=== PATIENT | female | born 1950 | race Two or more races ===

== ENCOUNTER 2019-10-27 20:51 | Inpatient (IN) | payer OTHER ==
[~2019-10-27] VITALS: Ht 157.5 cm; Wt 74.2 kg
[2019-10-27] MEDS ORDERED: KETOROLAC TROMETHAMINE INJ 30 MG/ML VIAL IV ONE (21:00)
[2019-10-27] MEDS ORDERED: IV NS 0.9% 1,000 ML BAG IV ONE (21:00)
[2019-10-27] MEDS ORDERED: ONDANSETRON HCL/PF 4 MG/2 ML VIAL IVP ONE (21:00)
[2019-10-27] MEDS ORDERED: ONDANSETRON HCL/PF 4 MG/2 ML VIAL ONE (21:01)
[2019-10-27] MEDS ORDERED: KETOROLAC TROMETHAMINE 15 MG/ML VIAL ONE (21:01)
--- NOTE | 2019-10-27 21:05 | NUR ---
PT AAOX4. EGYPTIAN SPEAKING. BIBRA 39 FROM HOME C/O LOW BP. PER RA THE BP WAS "AROUND 80S." ALSO PT WAS VOMITING SINCE THE MORNING. PT PALCED IN BED 9, IV LINE STARTED BY EMS AUDIT SENIOR ASSOCIATE 18G IV LAC, 500NS GIVEN OTW. PT PLACED ON MONITOR AND PULSE OX, VITALS STABLE 109/45. MD AT BEDSIDE FOR EVAL. PT DENIES PAIN, MINIMAL VOMITING, BG HIGH AT 577.
[2019-10-27 21:07] LABS: BASOPHILS # (AUTO) 0.1 /CMM (0.0-0.2); BASOPHILS % (AUTO) 0.5 % (0.0-2.0); EOSINOPHILS % (AUTO) 0.1 % (0.0-6.0); HEMATOCRIT 37 % (33-45); HEMOGLOBIN 11.1 g/dL (11.5-14.8); LYMPHOCYTES # (AUTO) 0.6 /CMM (0.8-4.8); LYMPHOCYTES % (AUTO) 4.6 % (20.0-44.0); MEAN CORPUSCULAR HGB CONC 30 g/dl (31.0-36.0); MEAN CORPUSCULAR VOLUME 90 fL (82-100); MONOCYTES # (AUTO) 0.4 /CMM (0.1-1.30); MONOCYTES % (AUTO) 3.2 % (2.0-12.0); NEUTROPHILS # (AUTO) 11.4 /CMM (1.8-8.9); NEUTROPHILS % (AUTO) 91.6 % (43.0-81.0); PLATELET COUNT (AUTO) 293 /CMM (150-450); RED BLOOD CELL COUNT(AUTO) 4.09 MIL/uL (4.0-5.2); WHITE BLOOD COUNT (AUTO) 12.5 K/uL (4.3-11.0)
[2019-10-27] MEDS ORDERED: INSULIN REGULAR, HUMAN 100 UNIT/ML 10 ML VIAL ONE ×2 (21:12→22:07)
--- NOTE | 2019-10-27 21:12 | NUR ---
ZOFRAN AND 1L NS GIVEN TO PT. PT CHRISTIANO PAIN, KNOWS SHE IS IN THE HOSPITAL AND IS ALERT. VSS. AWAITING MD FOR ORDERS REGARING BG.
--- NOTE | 2019-10-27 21:18 | NUR ---
INSULIN REGULAR 10 UNITS GIVEN IVP, WILL CHECK BG SOON.
[2019-10-27 21:22] LABS: ALBUMIN 1.9 g/dL (3.4-5.0); BILIRUBIN,DIRECT 0.1 mg/dL (0.0-0.2); BILIRUBIN,TOTAL 0.5 mg/dL (0.2-1.0); CALCIUM, SERUM 9.7 mg/dL (8.5-10.1); POTASSIUM 4.4 mmol/L (3.5-5.1); TOTAL PROTEIN, SERUM 7.5 g/dL (6.4-8.2)
[2019-10-27 21:27] LABS: MAGNESIUM 2.4 mg/dL (1.8-2.4); PHOSPHORUS 5.3 mg/dL (2.5-4.9)
[2019-10-27] MEDS ORDERED: INSULIN REGULAR, HUMAN 100 UNIT/ML 10 ML VIAL IV ONE (21:30)
--- NOTE | 2019-10-27 21:35 | NUR ---
BROUGHT TO CT
--- NOTE | 2019-10-27 21:45 | NUR ---
BROUGHT BACK FROM CT. PLACED ON MONITOR AND PULSE OX. VSS.
--- NOTE | 2019-10-27 21:53 | NUR ---
PT MOVED TO BED 8. SAT 88 ON 2L NC. PER MD REQUEST, INCREASED O2 TO 6L NC. NOW SAT 91%.
--- NOTE | 2019-10-27 21:56 | NUR ---
MRSA AND COVID SWAB SENT TO LAB
[2019-10-27] MEDS ORDERED: IV PREMIX 0.45% NS + KCL 1,000 ML IV ONE ×2 (21:59→22:12)
[2019-10-27] MEDS ORDERED: CEFTRIAXONE 1GM BAG (ER ONLY) 1 GM/50 ML PIGGYBACK IV ONE (22:00)
[2019-10-27] MEDS ORDERED: INSULIN REGULAR, HUMAN 100 UNIT in IV NS 0.9% 99 ML IV PRN ×2 (22:00)
[2019-10-27] MEDS ORDERED: AZITHROMYCIN 500 MG in IV D5W 250 ML IV ONE (22:00)
[2019-10-27] MEDS ORDERED: CEFTRIAXONE 1GM BAG (ER ONLY) 50 ML IV ONE (22:06)
[2019-10-27] MEDS ORDERED: AZITHROMYCIN 500 MG VIAL ONE (22:06)
--- NOTE | 2019-10-27 22:08 | NUR ---
PATSY MORENO AT BEDSIDE TO MICHAEL PALOMINO.
--- NOTE | 2019-10-27 22:10 | NUR ---
PATSY STRINGER AT BEDSIDE. BILATERAL DIABETIC ULCER NOTED.
--- NOTE | 2019-10-27 22:11 | NUR ---
MRSA AND COVID SWAB SENT TO LAB
--- NOTE | 2019-10-27 22:11 | NUR ---
Carrie feldman in [facility] - 10/27/19 at 2240 by ANA LAURA MRSA AND COVID SWAB SENT TO LAB
[2019-10-27] MEDS ORDERED: IV NS 0.9% 1,000 ML IV PRN (22:18)
[2019-10-27 22:26] LABS: ABG BASE EXCESS -23.9 mmol/L; ABG OXYGEN SATURATION 90.9 % (92.0-98.5); ABG PCO2 17.9 mmHg (35.0-45.0); ABG PH 7.049 (7.350-7.450); ABG PO2 72.1 mmHg (75.0-100.0); AaDO2 221.2 mmHg; MetHb 0.5 % (0.0-1.5); O2Hb 90.4 % (94.0-97.0); SITE, ABG Right Radial; VENT MODE, BG 6 LNC
[2019-10-27] MEDS ORDERED: ONDANSETRON HCL/PF 4 MG/2 ML VIAL IVP PRN (22:30)
[2019-10-27] MEDS ORDERED: Z GUARD REMEDY 2 OZ OINT TP PRN (22:30)
[2019-10-27] MEDS ORDERED: MAGNESIUM HYDROXIDE 30 ML UDC PO PRN (22:30)
[2019-10-27] MEDS ORDERED: MAG HYDROX/AL HYDROX/SIMETH 30 ML UDC PO PRN (22:30)
--- NOTE | 2019-10-27 22:40 | NUR ---
PADDING MACHINE OPERATOR AT BEDSIDE
--- NOTE | 2019-10-27 22:42 | NUR ---
RT AT BEDSIDE. PLACED ON SIMPLE MASK MAX FLOW, NOW SAT 99.
[2019-10-27 22:58] LABS: MAGNESIUM 2.3 mg/dL (1.8-2.4); PHOSPHORUS 4.1 mg/dL (2.5-4.9)
[2019-10-27] MEDS ORDERED: VANCOMYCIN 1 GM in IV D5W 250ml IV ONE (23:00)
[2019-10-27 23:01] LABS: C-REACTIVE PROTEIN 47.1 mg/dL (0.0-0.9)
--- NOTE | 2019-10-27 23:07 | NUR ---
INSULIN DRIP INCREASED TO 7/HR DUE TO BG 499.
--- NOTE | 2019-10-27 23:27 | NUR ---
REPORT GIVEN TO RADHA DONALDSON FOR SABINO
[2019-10-27] MEDS ORDERED: SODIUM BICARBONATE SYR 50 MEQ/50 ML DISP.SYRIN IV ONE (23:30)
[2019-10-28] VITALS (21 sets, daily range): BP systolic 102–125; BP diastolic 49–73
--- NOTE | 2019-10-28 00:10 | NUR ---
PT TRASNFERED PER ACLS PROTOCOL
[2019-10-28] MEDS: INSULIN REGULAR, HUMAN 100 UNIT in IV NS 0.9% 99 ML IV PRN ×8 (01:00→22:34)
[2019-10-28] MEDS ORDERED: VANCOMYCIN 1 GM VIAL ONE (01:00)
[2019-10-28 01:16] LABS: APPEARANCE,URINE SL CLOUDY (CLEAR); BILIRUBIN,URINE SMALL (NEGATIVE); BLOOD, URINE SMALL Ery/uL (NEGATIVE); COLOR,URINE YELLOW (YELLOW); KETONES,URINE >=80 (NEGATIVE); LEUKOCYTE ESTERASE ,URINE NEGATIVE (NEGATIVE); NITRITE, URINE NEGATIVE (NEGATIVE); PH,URINE 5.5 (5.0-8.0); PROTEIN,URINE TRACE mg/dl (NEGATIVE); UGLUCOSE >=1000 mg/dL (NEGATIVE); UROBILINOGEN,URINE 0.2 EU/dL (0.2)
[2019-10-28 01:26] LABS: CALCIUM, SERUM 9.2 mg/dL (8.5-10.1); CREATININE 1.8 mg/dL (0.6-1.3); PHOSPHORUS 3.5 mg/dL (2.5-4.9)
[2019-10-28] MEDS: BLOOD SUGAR DIAGNOSTIC 1 EACH STRIP IN SCH ×20 (01:27→23:34)
[2019-10-28 01:35] LABS: BACTERIA,URINE Moderate /HPF (None Seen); RBC,URINE 0-2 /HPF (0-2); SQUAMOUS EPITHELIAL CELL,UR Few /HPF (None Seen); URINE AMORPHOUS URATE Moderate /HPF (None Seen); WBC,URINE 0-2 /HPF (0-3)
[2019-10-28] MEDS: IV NS 0.9% 1,000 ML IV PRN ×2 (02:32→10:56)
[2019-10-28 03:58] LABS: SITE, ABG Right Radial; VENT MODE, BG NRB 100%
[2019-10-28 04:56] LABS: BASOPHILS % (AUTO) 0.4 % (0.0-2.0); HEMATOCRIT 32 % (33-45); HEMOGLOBIN 10.6 g/dL (11.5-14.8); LYMPHOCYTES # (AUTO) 0.5 /CMM (0.8-4.8); LYMPHOCYTES % (AUTO) 6.3 % (20.0-44.0); MEAN CORPUSCULAR HGB CONC 33 g/dl (31.0-36.0); MEAN CORPUSCULAR VOLUME 85 fL (82-100); MONOCYTES # (AUTO) 0.1 /CMM (0.1-1.30); MONOCYTES % (AUTO) 1.8 % (2.0-12.0); NEUTROPHILS # (AUTO) 7.3 /CMM (1.8-8.9); NEUTROPHILS % (AUTO) 91.5 % (43.0-81.0); PLATELET COUNT (AUTO) 244 /CMM (150-450); RED BLOOD CELL COUNT(AUTO) 3.76 MIL/uL (4.0-5.2)
[2019-10-28 05:03] LABS: ALBUMIN 1.8 g/dL (3.4-5.0); BILIRUBIN,DIRECT 0.1 mg/dL (0.0-0.2); BILIRUBIN,TOTAL 0.4 mg/dL (0.2-1.0); CALCIUM, SERUM 8.8 mg/dL (8.5-10.1); CREATININE 1.6 mg/dL (0.6-1.3); MAGNESIUM 1.8 mg/dL (1.8-2.4); PHOSPHORUS 2.1 mg/dL (2.5-4.9); POTASSIUM 3.7 mmol/L (3.5-5.1); TOTAL PROTEIN, SERUM 7.2 g/dL (6.4-8.2)
[2019-10-28 05:19] LABS: THYROID STIMULATING HORMONE 2.03 uIU/mL (0.358-3.74)
--- NOTE | 2019-10-28 07:30 | NUR ---
rn notes received patient form restaurant shift supervisor nurse, patient lethargic, fight back when pain is inflicted. on non rebreather mask, tolerating well. breathing unlabored. sating 95%. sinus rhythm/ sinus tachy on the monitor. no indication of pain noted. iv access on the right wrist g 20 and left ac g 18, both in place and flushing well. with ongoing insulin drip infusing with 2 units at this time, will adjust as able and accordingly. safety measures observed and maintained. call light placed within shift. will isolate patient accordingly
--- NOTE | 2019-10-28 07:42 | NUR ---
FIELD EVIDENCE TECHNICIAN/MED RECON UNABLE TO UPDATE HOME MEDICATION INFORMATION AT THIS TIME. KHOA (DAUGHTER) [phone], WILL CALL BACK LATER TO UPDATE WITH INFORMATION.
--- NOTE | 2019-10-28 07:44 | NUR ---
WOUND CARE CONSULT: REVIEWED ADMISSION DOCUMENTATION INCLUDING PHOTOS AND SPOKE WITH RN. PER ADMISSION DOCUMENTATION AND RN REPORT, PT NOTED TO HAVE VERY RED IRRITATED PERINEUM, LEFT LOWER LEG WOUND AND RT FOOT WOUND, PRESENT ON ADMISSION. RECOMMEND DPM CONSULT. DR RESTREPO NOTIFIED OF CONSULT REQUEST. RECOMMENDATIONS MADE FOR SKIN PROTECTION AND PERINEAL CARE. DISCUSSED WITH NURSING STAFF. WILL SEE PRBrown. IN AGREEMENT WITH PLAN OF CARE.
[2019-10-28] MEDS ORDERED: FEE PK DOSING 1 MIN EA MC ONE (08:25)
[2019-10-28 08:59] LABS: CALCIUM, SERUM 8.9 mg/dL (8.5-10.1); CREATININE 1.6 mg/dL (0.6-1.3); POTASSIUM 3.5 mmol/L (3.5-5.1)
[2019-10-28 10:15] LABS: ABG BASE EXCESS -8.3 mmol/L; ABG OXYGEN SATURATION 95.1 % (92.0-98.5); ABG PCO2 28.3 mmHg (35.0-45.0); ABG PH 7.365 (7.350-7.450); ABG PO2 77.9 mmHg (75.0-100.0); AaDO2 606.8 mmHg; COHb 0.1 % (0.5-1.5); MetHb 0.6 % (0.0-1.5); O2Hb 94.4 % (94.0-97.0)
--- NOTE | 2019-10-28 12:00 | NUR ---
rn notes dr. foley at the unit. made aware of the current situation. informed on the current blood sugar level, per the md will call me to give orders depending on the results of the labs when reviewed. will wait for orders
--- NOTE | 2019-10-28 14:00 | NUR ---
rn notes followed up orders with dr. foley. obtained orders to change fluid to d5ns at 125cc/hr from ns of the same rate. give 20meq potassium for potassium level at 3.5. orders noted and carried out
[2019-10-28] MEDS ORDERED: POTASSIUM CHLORIDE 20 MEQ TAB.PRT.SR PO ONE (15:00)
[2019-10-28] MEDS ORDERED: HYDROXYCHLOROQUINE 200 MG/8 ML SUSPENSION NG SCH ×2 (16:30→21:00)
[2019-10-28] MEDS: CLOTRIMAZOLE/BETAMETASONE DIPROPIONATE 15 GM TUBE TP SCH ×2 (16:44→17:00)
[2019-10-28] MEDS: IV D5/0.45 NACL 1,000 ML IV PRN (16:46)
[2019-10-28] MEDS: HYDROXYCHLOROQUINE 200 MG/8 ML SUSPENSION NG SCH (17:00)
[2019-10-28] MEDS ORDERED: HYDROXYCHLOROQUINE 200 MG TABLET NG SCH (17:00)
[2019-10-28] MEDS ORDERED: INSU100V27 SQ (17:09)
[2019-10-28] MEDS ORDERED: INSU100I26 SQ (17:09)
[2019-10-28] MEDS: POTASSIUM CL. PREMIX PERIPHER. 50 ML IV SCH ×2 (18:41→20:35)
[2019-10-28] MEDS: VANCOMYCIN 0.75 GM in IV D5W 250 ML IV SCH (19:09)
--- NOTE | 2019-10-28 19:30 | NUR ---
rn notes endorsed patient for continuity of care. not on any form of distress. breathing unlabored. tolerating non rebreather well. insulin infusing at 1.6 units at this time. all nursing needs attended and met. safety measures in place. call light within reach. patient kept on isolation Addendum: 10/29/19 at 1827 by FREDDIE MEADE RN tried inserting n/ogt twice but unsuccessful. endorsed to ellenrn and ed,rn (charge nurse)
[2019-10-28] MEDS: CEFTRIAXONE 1 G in IV D5W 50 ML IV SCH (21:54)
[2019-10-29] VITALS (40 sets, daily range): BP systolic 92–142; BP diastolic 33–90
[2019-10-29] MEDS: BLOOD SUGAR DIAGNOSTIC 1 EACH STRIP IN SCH ×9 (00:26→23:21)
[2019-10-29] MEDS: IV D5/0.45 NACL 1,000 ML IV PRN ×3 (00:59→15:40)
[2019-10-29 06:02] LABS: BASOPHILS % (AUTO) 0.5 % (0.0-2.0); HEMATOCRIT 30 % (33-45); HEMOGLOBIN 10.3 g/dL (11.5-14.8); LYMPHOCYTES # (AUTO) 0.4 /CMM (0.8-4.8); LYMPHOCYTES % (AUTO) 5.7 % (20.0-44.0); MEAN CORPUSCULAR HGB CONC 34 g/dl (31.0-36.0); MEAN CORPUSCULAR VOLUME 86 fL (82-100); MONOCYTES # (AUTO) 0.1 /CMM (0.1-1.30); MONOCYTES % (AUTO) 1.7 % (2.0-12.0); NEUTROPHILS # (AUTO) 6.9 /CMM (1.8-8.9); NEUTROPHILS % (AUTO) 92.1 % (43.0-81.0); PLATELET COUNT (AUTO) 225 /CMM (150-450); RED BLOOD CELL COUNT(AUTO) 3.54 MIL/uL (4.0-5.2); WHITE BLOOD COUNT (AUTO) 7.5 K/uL (4.3-11.0)
[2019-10-29 06:10] LABS: ALANINE AMINOTRANSFERASE 15 U/L (12-78); ALBUMIN 1.6 g/dL (3.4-5.0); ALKALINE PHOSPHATASE 123 U/L (46-116); ASPARTATE AMINOTRANSFERASE 31 U/L (15-37); BILIRUBIN,TOTAL 0.2 mg/dL (0.2-1.0); CALCIUM, SERUM 8.9 mg/dL (8.5-10.1); CARBON DIOXIDE 22 mmol/L (21-32); CHLORIDE 108 mmol/L (98-107); CREATININE 1.1 mg/dL (0.6-1.3); GLUCOSE 195 mg/dL (74-106); LIPASE 998 U/L (73-393); MAGNESIUM 1.9 mg/dL (1.8-2.4); POTASSIUM 3.3 mmol/L (3.5-5.1); SODIUM SERUM 141 mmol/L (136-145); TOTAL PROTEIN, SERUM 6.7 g/dL (6.4-8.2); UREA NITROGEN, BLOOD 21 mg/dL (7-18)
--- NOTE | 2019-10-29 07:30 | NUR ---
rn notes received patient from restaurant shift supervisor nurse. patient asleep but awaken by verbal stimuli. able to open eyes spontaneously. no shortness of breath noted. sating fine. tolerating non rebreather mask. sinus rhythm on the monitor with hr on the 98bpm. no indication of pain noted at this time. patient with low grade fever at 100.8- cooling measures initiated. will continue to monitor. safety measures observed and maintained. SRx2 raised. call light placed within reach. will continue to monitor patient accordingly
[2019-10-29] MEDS ORDERED: POTASSIUM PHOSPHATE MM 15 MMOL in IV NS 0.9% 250 ML IV SCH (09:00)
[2019-10-29 09:36] LABS: ABG BASE EXCESS -1.9 mmol/L; ABG OXYGEN SATURATION 90.3 % (92.0-98.5); ABG PCO2 34.5 mmHg (35.0-45.0); ABG PH 7.423 (7.350-7.450); ABG PO2 55.1 mmHg (75.0-100.0); AaDO2 479.1 mmHg; COHb 0.1 % (0.5-1.5); MetHb 0.6 % (0.0-1.5); O2Hb 89.7 % (94.0-97.0); SITE, ABG Right Radial; VENT MODE, BG NON-REBREATH MSK
[2019-10-29] MEDS ORDERED: DEXTROSE 50%-WATER 50 ML DISP.SYRIN IV PRN (11:30)
[2019-10-29] MEDS ORDERED: INSULIN REGULAR, HUMAN 100 UNIT/ML 3 ML VIAL SQ PRN (11:30)
[2019-10-29] MEDS: POTASSIUM PHOSPHATE MM 7.5 MMOL in IV NS 0.9% 100 ML IV SCH ×2 (11:31→15:36)
[2019-10-29] MEDS: HYDROXYCHLOROQUINE 200 MG/8 ML SUSPENSION NG SCH ×2 (11:57→17:05)
[2019-10-29] MEDS: CLOTRIMAZOLE/BETAMETASONE DIPROPIONATE 15 GM TUBE TP SCH ×2 (11:58→17:34)
[2019-10-29] MEDS: HYDROGEL DRESSING 90 GM TUBE TP SCH (11:58)
[2019-10-29] MEDS ORDERED: BLOOD SUGAR DIAGNOSTIC 1 EACH STRIP IN SCH (13:00)
[2019-10-29] MEDS: VANCOMYCIN 0.75 GM in IV D5W 250 ML IV SCH (13:29)
[2019-10-29 13:48] LABS: ABG BASE EXCESS -4.5 mmol/L; ABG OXYGEN SATURATION 84.4 % (92.0-98.5); ABG PCO2 31.8 mmHg (35.0-45.0); ABG PH 7.402 (7.350-7.450); ABG PO2 46.3 mmHg (75.0-100.0); AaDO2 634.9 mmHg; COHb 0.6 % (0.5-1.5); MetHb 0.3 % (0.0-1.5); O2Hb 83.6 % (94.0-97.0); SITE, ABG Right Radial; VENT MODE, BG NRB MSK+ 6LPM NC
--- NOTE | 2019-10-29 14:00 | NUR ---
rn notes spoke to daughter paula. updated on the condition/status of the patient relayed to the latter. specifically mentioned about patient getting intubated due to worsening abg results. daughter verbalized understanding
[2019-10-29] MEDS ORDERED: VANCOMYCIN 0.75 GM in IV D5W 250 ML IV SCH (14:30)
--- NOTE | 2019-10-29 14:45 | NUR ---
RN NOTES PATIENT ORALLY INTUBATED BY DR. HAYES ACCOMPANIED BY ME AND 2 RT. PATIENT ABLE TO TOLERATE THE PROCEDURE WELL.
--- NOTE | 2019-10-29 14:45 | NUR ---
RT NOTE: LATE ENTRY- PATIENT ORALLY INTUBATED WITH 7.5 ETT SECURED AT 22CM UPPER LIP LINE BY ANESTHESIOLOGIST AND PLACED ON PB 840 VENT. SETTINGS PER 'S ORDERS. SUCTIONED AND LAVAGED SMALL AMOUNT OF THIN BLOOD TINGED SECRETIONS. AMBU BAG AT [facility].
[2019-10-29] MEDS: PROPOFOL 100 ML IV PRN ×2 (15:36→19:26)
[2019-10-29] MEDS: AZITHROMYCIN 500 MG in IV D5W 250 ML IV SCH (15:50)
[2019-10-29] MEDS ORDERED: PROPOFOL 200 MG/20 ML VIAL IV ONE (16:46)
[2019-10-29] MEDS ORDERED: SUCCINYLCHOLINE CHLORIDE 20 MG/ML VIAL IV ONE (16:46)
[2019-10-29] MEDS: INSULIN GLARGINE, 100 UNIT/ML CARTRIDGE SQ SCH (17:34)
[2019-10-29] MEDS: INSULIN REGULAR, HUMAN 100 UNIT/ML 3 ML VIAL SQ PRN ×2 (17:37→23:22)
[2019-10-29 18:05] LABS: ABG BASE EXCESS -3.4 mmol/L; ABG OXYGEN SATURATION 98.6 % (92.0-98.5); ABG PCO2 32.7 mmHg (35.0-45.0); ABG PH 7.413 (7.350-7.450); ABG PO2 157.8 mmHg (75.0-100.0); AaDO2 522.5 mmHg; COHb 0.2 % (0.5-1.5); MetHb 0.3 % (0.0-1.5); O2Hb 98.1 % (94.0-97.0); PEEP,BG 5 cm H2O; SITE, ABG Right Radial; VT, ABG 450 mL
--- NOTE | 2019-10-29 19:43 | NUR ---
RT NOTES PT RECEIVED ORALLY INTUBATED ON [facility] VENT ON CHARTED SETTINGS. NO SOB NOTED AT THIS TIME. AIRWAY PATENT AND SECURED. ICU STAFF NURSE DONE. PT SUCTIONED. ALARMS SET AND AUDIBLE. VENT CONT TO RED OUTLET. AMBUBAG AT [facility]. WILL CONT TO MONITOR. Addendum: 10/29/19 at 2042 by CLARK HOLGUIN RT Amended: Links added.
[2019-10-29] MEDS ORDERED: HYDROXYCHLOROQUINE 200 MG TABLET NG SCH (21:00)
[2019-10-29] MEDS: CEFTRIAXONE 1 G in IV D5W 50 ML IV SCH (22:30)
--- NOTE | 2019-10-29 23:30 | NUR ---
RN NOTES PAGED Rodrigo KAMARA NP PER PROTOCOL REGARDING BLOOD SUGAR AT 428. INFORMED LATER THAT INSULIN HAS BEEN GIVEN PER SLIDING SCALE. NO NEW ORDER AT THIS TIME
[2019-10-30] VITALS (110 sets, daily range): BP systolic 66–148; BP diastolic 35–108
--- NOTE | 2019-10-30 | NUR ---
RN NOTES ENDORSED PATIENT FOR CONTINUITY OF CARE. NOT ON ANY FORM OF DISTRESS. TOLERATING CURRENT VENT SETTINGS. NO SHORTNESS OF BREATH. NO INDICATION OF PAIN NOTED. PATIENT WITH ONGOING DIPRIVAN AT 25MMCG ANND D51/2NS AT 125CC/HR. HANDS OFF
[2019-10-30] MEDS: IV D5/0.45 NACL 1,000 ML IV PRN ×3 (00:02→21:48)
[2019-10-30] MEDS ORDERED: VANCOMYCIN 0.75 GM in IV D5W 250 ML IV PRN (01:00)
[2019-10-30] MEDS ORDERED: NOREPINEPHRINE 4 MG/4 ML AMPUL IV ONE ×3 (01:58→02:03)
[2019-10-30] MEDS: NOREPINEPHRINE 32 MG in IV NS 0.9% 218 ML IV PRN (02:15)
[2019-10-30] MEDS: PROPOFOL 100 ML IV PRN ×3 (03:46→21:11)
[2019-10-30 04:27] LABS: BASOPHILS % (AUTO) 0.1 % (0.0-2.0); HEMATOCRIT 27 % (33-45); LYMPHOCYTES # (AUTO) 0.4 /CMM (0.8-4.8); LYMPHOCYTES % (AUTO) 8.8 % (20.0-44.0); MEAN CORPUSCULAR HGB CONC 33 g/dl (31.0-36.0); MEAN CORPUSCULAR VOLUME 83 fL (82-100); MONOCYTES # (AUTO) 0.1 /CMM (0.1-1.30); NEUTROPHILS # (AUTO) 3.7 /CMM (1.8-8.9); NEUTROPHILS % (AUTO) 88.1 % (43.0-81.0); PLATELET COUNT (AUTO) 161 /CMM (150-450); RED BLOOD CELL COUNT(AUTO) 3.24 MIL/uL (4.0-5.2); WHITE BLOOD COUNT (AUTO) 4.2 K/uL (4.3-11.0)
[2019-10-30 04:43] LABS: BILIRUBIN,TOTAL 0.2 mg/dL (0.2-1.0); CALCIUM, SERUM 8.5 mg/dL (8.5-10.1); CREATININE 0.9 mg/dL (0.6-1.3); MAGNESIUM 1.8 mg/dL (1.8-2.4); PHOSPHORUS 1.2 mg/dL (2.5-4.9); POTASSIUM 2.9 mmol/L (3.5-5.1)
[2019-10-30 04:46] LABS: ALBUMIN 1.2 g/dL (3.4-5.0)
[2019-10-30] MEDS: BLOOD SUGAR DIAGNOSTIC 1 EACH STRIP IN SCH ×3 (05:05→17:05)
[2019-10-30] MEDS: INSULIN REGULAR, HUMAN 100 UNIT/ML 3 ML VIAL SQ PRN ×3 (05:39→18:41)
[2019-10-30] MEDS: HYDROXYCHLOROQUINE 200 MG/8 ML SUSPENSION NG SCH ×2 (05:49→17:10)
--- NOTE | 2019-10-30 06:36 | NUR ---
0200 Patient blood pressure drop,to increase sbp to 70's got order for levophed drip titrated to keep sbp > 90. Addendum: 10/30/19 at 0646 by ROBYN SIERRA LVN 0600 Patient in bed. No s/s of distress or discomfort noted. Vent tube intact in place and secured. All iv lines in place with no iv infiltration. Patient is positive for bell virus. Will endored to am nurse.
[2019-10-30] MEDS: CLOTRIMAZOLE/BETAMETASONE DIPROPIONATE 15 GM TUBE TP SCH ×2 (09:00→17:00)
[2019-10-30] MEDS: HYDROGEL DRESSING 90 GM TUBE TP SCH (09:00)
[2019-10-30] MEDS: INSULIN GLARGINE, 100 UNIT/ML CARTRIDGE SQ SCH ×2 (09:11→18:40)
[2019-10-30 09:56] LABS: ABG BASE EXCESS -1.8 mmol/L; ABG OXYGEN SATURATION 96.7 % (92.0-98.5); ABG PCO2 29.1 mmHg (35.0-45.0); ABG PH 7.477 (7.350-7.450); ABG PO2 87.6 mmHg (75.0-100.0); AaDO2 344.2 mmHg; COHb 0.3 % (0.5-1.5); MetHb 0.5 % (0.0-1.5); O2Hb 95.9 % (94.0-97.0); PEEP,BG 5 cm H2O; SITE, ABG Right Brachial; VT, ABG 450 mL
[2019-10-30] MEDS: VANCOMYCIN 0.75 GM in IV D5W 250 ML IV SCH ×2 (10:00→21:49)
[2019-10-30] MEDS: HYDROCORTISONE SOD SUCCINATE 100 MG/2 ML VIAL IV SCH ×3 (11:26→17:03)
[2019-10-30] MEDS: POTASSIUM CL. PREMIX PERIPHER. 50 ML IV SCH ×6 (11:27→16:46)
[2019-10-30 13:38] LABS: C-REACTIVE PROTEIN 34.2 mg/dL (0.0-0.9)
[2019-10-30] MEDS ORDERED: NS 0.9% IV SCH (14:30)
[2019-10-30] MEDS ORDERED: POTASSIUM PHOSPHATE MM IV SCH (14:30)
[2019-10-30] MEDS: POTASSIUM PHOSPHATE MM 7.5 MMOL in IV NS 0.9% 100 ML IV SCH ×3 (15:00→23:56)
[2019-10-30] MEDS: AZITHROMYCIN 500 MG in IV D5W 250 ML IV SCH (15:19)
[2019-10-30] MEDS ORDERED: methylPREDNISolone SOD SUCC 40 MG/ML VIAL IV ONE (17:00)
[2019-10-30] MEDS ORDERED: diphenhydrAMINE HCL 50 MG/ML VIAL IV ONE (17:00)
[2019-10-30] MEDS ORDERED: ACETAMINOPHEN 650 MG/20.3 ML UDC NG ONE (17:00)
--- NOTE | 2019-10-30 17:51 | NUR ---
RT NOTE: PATIENT RECEIVED ORALLY INTUBATED WITH 7.5 ETT SECURED AT 22 CM MID LIP LINE ON PB 840 VENT. VENT CHANGES MADE PER MD ORDER. ALARMS SET AND AUDIBLE. VENT PLUGGED INTO RED OUTLET. AMBU BAG AT [facility].
[2019-10-30] MEDS: PHENYLEPHRINE 100 MG in IV NS 0.9% 240 ML IV PRN (17:55)
[2019-10-30] MEDS ORDERED: TOCILIZUMAB 400 MG in IV NS 0.9% 80 ML IV ONE (18:00)
[2019-10-30] MEDS: CEFTRIAXONE 1 G in IV D5W 50 ML IV SCH (21:49)
[2019-10-31] VITALS (98 sets, daily range): BP systolic 71–143; BP diastolic 33–95
[2019-10-31] MEDS: ACETAMINOPHEN 650 MG/SUPP.RECT RC PRN ×3 (01:21→23:36)
[2019-10-31] MEDS: INSULIN REGULAR, HUMAN 100 UNIT/ML 3 ML VIAL SQ PRN ×4 (01:25→17:11)
[2019-10-31] MEDS: POTASSIUM PHOSPHATE MM 7.5 MMOL in IV NS 0.9% 100 ML IV SCH (01:48)
[2019-10-31] MEDS: HYDROXYCHLOROQUINE 200 MG/8 ML SUSPENSION NG SCH ×2 (04:45→17:07)
[2019-10-31] MEDS: PROPOFOL 100 ML IV PRN ×3 (05:02→17:59)
[2019-10-31 06:11] LABS: CREATINE KINASE, TOTAL 157 U/L (26-192)
[2019-10-31 06:17] LABS: B-TYPE NATRIURETIC PEPTIDE 31285 PG/ML (0-125)
[2019-10-31 06:18] LABS: CALCIUM, SERUM 7.9 mg/dL (8.5-10.1); CREATININE 1.3 mg/dL (0.6-1.3); POTASSIUM 3.9 mmol/L (3.5-5.1)
[2019-10-31 06:19] LABS: BASOPHILS % (AUTO) 0.5 % (0.0-2.0); EOSINOPHILS % (AUTO) 0.9 % (0.0-6.0); HEMATOCRIT 32 % (33-45); HEMOGLOBIN 10.4 g/dL (11.5-14.8); LYMPHOCYTES # (AUTO) 0.6 /CMM (0.8-4.8); LYMPHOCYTES % (AUTO) 14.4 % (20.0-44.0); MEAN CORPUSCULAR HGB CONC 33 g/dl (31.0-36.0); MEAN CORPUSCULAR VOLUME 83 fL (82-100); MONOCYTES # (AUTO) 0.3 /CMM (0.1-1.30); MONOCYTES % (AUTO) 6.7 % (2.0-12.0); NEUTROPHILS # (AUTO) 3.4 /CMM (1.8-8.9); NEUTROPHILS % (AUTO) 77.5 % (43.0-81.0); PLATELET COUNT (AUTO) 163 /CMM (150-450); RED BLOOD CELL COUNT(AUTO) 3.79 MIL/uL (4.0-5.2); WHITE BLOOD COUNT (AUTO) 4.4 K/uL (4.3-11.0)
[2019-10-31] MEDS: BLOOD SUGAR DIAGNOSTIC 1 EACH STRIP IN SCH ×4 (06:40→17:16)
[2019-10-31 07:18] LABS: BILIRUBIN,DIRECT 0.2 mg/dL (0.0-0.2)
--- NOTE | 2019-10-31 07:30 | NUR ---
RN NOTES RECEIVED PATIENT. SEDATED WITH DIPRIVAN 25MCG. ON VENT, TOLERATING CURRENT VENT SETTINGS FOLLOWS: AC 18, TV 400, FI02 60%, PEEP ZHANNA 5. SATS APPEAR AT 100% ON THE MONITOR AT THIS TIME. SINUS RHYTHM ON THE MONITOR WITH HR ON THE 80S. PATIENT WITH TEMP AT 100.7. NO INDICATION OF PAIN NOTED. OGT IN PLACE. WITH ONGOING DANIELLA AT 1MCG/KG/MIN. HOB ELEVATED. CALL LIGHT WITHIN REACH. WILL CONTINUE TO MONITOR PATIENT ACCORDINGLY Addendum: 10/31/19 at 1039 by FREDDIE MEADE RN INITIATED SEDATION VACATION AT THIS TIME
--- NOTE | 2019-10-31 07:30 | NUR ---
FNZ EXCHANGE AWARE OF DR/ NOT RETURNING CALL SINCE MESSAGE LEFT @ [phone]. INFORMED THAT DR WILL CALL BACK
--- NOTE | 2019-10-31 08:00 | NUR ---
RN NOTES SPOKE TO DR. VALENCIA REGARDING THE PATIENT'S TROPONIN LEVE. NO NEW ORDER AT THIS TIME
[2019-10-31 08:37] LABS: ABG BASE EXCESS -9.6 mmol/L; ABG OXYGEN SATURATION 87.1 % (92.0-98.5); ABG PCO2 21.6 mmHg (35.0-45.0); ABG PH 7.409 (7.350-7.450); ABG PO2 53.1 mmHg (75.0-100.0); AaDO2 279.1 mmHg; COHb 0.3 % (0.5-1.5); MetHb 0.2 % (0.0-1.5); O2Hb 86.7 % (94.0-97.0); SITE, ABG Left Radial; VENT MODE, BG AC 18 400 50% +5
[2019-10-31] MEDS: HYDROCORTISONE SOD SUCCINATE 100 MG/2 ML VIAL IV SCH ×2 (08:52→12:28)
[2019-10-31] MEDS: INSULIN GLARGINE, 100 UNIT/ML CARTRIDGE SQ SCH ×2 (08:54→17:09)
[2019-10-31] MEDS: HYDROGEL DRESSING 90 GM TUBE TP SCH (08:55)
[2019-10-31] MEDS: CLOTRIMAZOLE/BETAMETASONE DIPROPIONATE 15 GM TUBE TP SCH ×2 (08:55→17:07)
--- NOTE | 2019-10-31 09:00 | NUR ---
RN NOTES INFORMED DR. VALENCIA ABOUT SWELLING OF THE RIGHT UPPER ARM. MIDLINE FLUSHES WELL BUT NO ADEQUATE BACK FLOW. Addendum: 10/31/19 at 1852 by FREDDIE MEADE RN OBTAINED ORDER FOR VENOUS DUPLEX SCAN. ORDER READ BACK, NOTED AND CARRIED OUT
--- NOTE | 2019-10-31 09:00 | NUR ---
RN NOTES ALL DUE MEDICATION ADMINISTERED. IV SITES ALL IN PLACE AND INTACT, FLUSHING WELL. PATIENT ASSESS (PLEASE SEE FLOWSHEET). ORALLY INTUBATED AY 22CM ON THE LIP. PATIENT ABLE TO OPEN EYES SPONTANEOUSLY, ABLE TO MOVE PURPOSELY. BUT WAS NOT ABLE TO FOLLOW COMMAND PERFECTLY PROBABLY BECAUSE OF LANGUAGE BARRIER. RIGHT ARM SWOLLEN-WILL INFORM MD ON ROUNDS.
[2019-10-31 10:29] LABS: D-DIMER 26.27 mg/L(FEU (0.17-0.50)
[2019-10-31] MEDS: VANCOMYCIN 0.75 GM in IV D5W 250 ML IV SCH ×2 (12:28→22:23)
[2019-10-31] MEDS: PHENYLEPHRINE 100 MG in IV NS 0.9% 240 ML IV PRN ×2 (12:37→18:15)
[2019-10-31] MEDS: ASPIRIN 81 MG TAB.CHEW NG SCH (15:07)
[2019-10-31] MEDS: AZITHROMYCIN 500 MG in IV D5W 250 ML IV SCH (15:07)
--- NOTE | 2019-10-31 19:00 | NUR ---
RN NOTES ENDORSED FOR CONTINUITY ZHANNA CARE.PATIENT RR ON THE 30'S. CURRENT VENT SETTING WITH FI02 ON THE 100%. NO INDICATION OF PAIN. PATIENT IS SEDATED WITH DIPRIVAN AT 25MCG. LEVOPHED AT 1MCG AND D5NS AT 70CC/HR. HOB ELEVATED. SAFETY MEASURES IN PLACE. CALL LIGHT WITHIN REACH
[2019-10-31 20:00] LABS: APPEARANCE,URINE CLOUDY (CLEAR); BILIRUBIN,URINE NEGATIVE (NEGATIVE); BLOOD, URINE NEGATIVE Ery/uL (NEGATIVE); COLOR,URINE YELLOW (YELLOW); KETONES,URINE NEGATIVE (NEGATIVE); LEUKOCYTE ESTERASE ,URINE NEGATIVE (NEGATIVE); NITRITE, URINE NEGATIVE (NEGATIVE); PROTEIN,URINE 100 mg/dl (NEGATIVE); UGLUCOSE >=1000 mg/dL (NEGATIVE)
[2019-10-31 20:18] LABS: BACTERIA,URINE 3+ /HPF (None Seen); SQUAMOUS EPITHELIAL CELL,UR 0-2 /HPF (None Seen); YEAST,URINE Many /HPF (None Seen)
[2019-10-31 20:19] LABS: COARSE GRANULAR CASTS,URINE Few /LPF (None Seen)
[2019-10-31] MEDS: CEFTRIAXONE 1 G in IV D5W 50 ML IV SCH (22:52)
[2019-11-01] VITALS (86 sets, daily range): BP systolic 83–120; BP diastolic 17–73
[2019-11-01] MEDS: BLOOD SUGAR DIAGNOSTIC 1 EACH STRIP IN SCH ×4 (00:15→17:41)
--- NOTE | 2019-11-01 00:23 | NUR ---
ICU/RN CALLED AFTER HOUR PHARMACY ABOUT PATIENTS TROUGH LEVEL BEING AT 28. WAS INSTRUCTED TO HOLD VANCO DOSE SCHEDULED AT 2200 AND TO LET THE AM PHARMACY KNOW IF THEY NEED TO REDOSE THE VANCO.
[2019-11-01] MEDS: IV D5/0.45 NACL 1,000 ML IV PRN (02:00)
[2019-11-01] MEDS: PROPOFOL 100 ML IV PRN ×3 (04:02→22:58)
[2019-11-01 04:31] LABS: BASOPHILS % (AUTO) 0.3 % (0.0-2.0); HEMATOCRIT 31 % (33-45); HEMOGLOBIN 10.2 g/dL (11.5-14.8); LYMPHOCYTES % (AUTO) 12.9 % (20.0-44.0); MEAN CORPUSCULAR HGB CONC 33 g/dl (31.0-36.0); MEAN CORPUSCULAR VOLUME 84 fL (82-100); MONOCYTES # (AUTO) 0.6 /CMM (0.1-1.30); MONOCYTES % (AUTO) 7.9 % (2.0-12.0); NEUTROPHILS % (AUTO) 78.9 % (43.0-81.0); PLATELET COUNT (AUTO) 106 /CMM (150-450); RED BLOOD CELL COUNT(AUTO) 3.62 MIL/uL (4.0-5.2); WHITE BLOOD COUNT (AUTO) 7.6 K/uL (4.3-11.0)
[2019-11-01 04:35] LABS: CALCIUM, SERUM 7.5 mg/dL (8.5-10.1); CREATININE 1.9 mg/dL (0.6-1.3); MAGNESIUM 1.8 mg/dL (1.8-2.4); PHOSPHORUS 3.4 mg/dL (2.5-4.9); POTASSIUM 4.2 mmol/L (3.5-5.1)
[2019-11-01] MEDS: ACETAMINOPHEN 650 MG/SUPP.RECT RC PRN ×2 (06:25→15:42)
[2019-11-01 07:06] LABS: HIV SCRN 4G wRFX Non Reactive (Non Reactive)
--- NOTE | 2019-11-01 07:19 | NUR ---
ICU/RN CLOSING NOTE PATIENT INTUBATED AND SEDATED WITH NO SIGN OF ANY DISTRESS. PATIENT TOLERATING VENT SETTINGS ORDERED SATURATING AT 100% AND NO SIGN OF SOB. PATIENT HAS OG TUBE PATENT. HAS FC RUNNING VIA GRAVITY WITH CLOUDY YELLOW URINE. DIPRIVAN AT 25MCG/KG/MIN AND DANIELLA AT 0.9MCG/KG/MIN RUNNING ON MARK MIDLINE AND D51/2 NS @ 70CC/HR. ALL SAFETY PRECAUTIONS APPLIES. ENDORSED PATIENT TO MORNING SHIFT NURSE FOR SABINO.
[2019-11-01] MEDS: HYDROCORTISONE SOD SUCCINATE 100 MG/2 ML VIAL IV SCH (08:12)
[2019-11-01] MEDS: ASPIRIN 81 MG TAB.CHEW NG SCH (08:12)
[2019-11-01] MEDS: HYDROGEL DRESSING 90 GM TUBE TP SCH (08:13)
[2019-11-01] MEDS: CLOTRIMAZOLE/BETAMETASONE DIPROPIONATE 15 GM TUBE TP SCH ×2 (08:15→16:59)
[2019-11-01] MEDS: INSULIN GLARGINE, 100 UNIT/ML CARTRIDGE SQ SCH ×2 (08:16→16:58)
[2019-11-01] MEDS: HYDROXYCHLOROQUINE 200 MG/8 ML SUSPENSION NG SCH ×2 (09:15→19:11)
[2019-11-01 09:36] LABS: ABG BASE EXCESS -9.4 mmol/L; ABG OXYGEN SATURATION 97.7 % (92.0-98.5); ABG PCO2 24.3 mmHg (35.0-45.0); ABG PH 7.381 (7.350-7.450); ABG PO2 118.2 mmHg (75.0-100.0); AaDO2 282.9 mmHg; COHb 0.3 % (0.5-1.5); MetHb 0.3 % (0.0-1.5); O2Hb 97.1 % (94.0-97.0); PEEP,BG 10 cm H2O; SITE, ABG Left Brachial; VT, ABG 400 mL
[2019-11-01] MEDS: VANCOMYCIN 0.75 GM in IV D5W 250 ML IV SCH (09:40)
[2019-11-01] MEDS ORDERED: IV LR 1000 ML 1,000 ML IV PRN (10:00)
[2019-11-01] MEDS: DEXTROSE 50%-WATER 50 ML DISP.SYRIN IV PRN ×4 (11:41→17:00)
[2019-11-01] MEDS ORDERED: CASPOFUNGIN 50 MG in IV NS 0.9% 250 ML IV SCH (12:30)
[2019-11-01 13:14] LABS: C-REACTIVE PROTEIN 25.3 mg/dL (0.0-0.9)
[2019-11-01] MEDS ORDERED: MEROPENEM 500 MG in IV NS 0.9% 50 ML IV ONE (14:00)
[2019-11-01] MEDS: AZITHROMYCIN 500 MG in IV D5W 250 ML IV SCH (14:13)
[2019-11-01] MEDS ORDERED: IV D5/0.45 NACL 1,000 ML IV PRN (14:30)
[2019-11-01] MEDS: MICAFUNGIN SODIUM 100 MG in IV NS 0.9% 100 ML IV SCH (16:42)
--- NOTE | 2019-11-01 18:40 | NUR ---
RN NOTE 0715: Received patient with ETT to vent, tolerated settings at this time, with PEEP 10. Sedated on Diprivan @ 25mcg. With MARK midline. On Chirag @ 0.9mcg. Will Follow up for PICC line. On isolation prec for Covid, maintained and observed. CORPORATE ADMINISTRATIVE ASSISTANT restraints on for safety. Noted with RUE swlling and fingers discoloration, due to pressors and DM. 0830: S/E by David STRINGER, no new order at this time. Followed up from the radio re: the RUE duplex. Will order PICC. 0900: S/E by Dr. Pearson, aware for today's ABG, continue same settings for now. Temp 102.2, ordered cooling blanket. 1200: BG 17 D50 given, rechecked, then became 40, another D50 given, became 45, Dr. Hollingsworth made aware, no reply at this time. Informed David STRINGER, said to give another D50 and hold Lantus for now until Nephro replies. 1345: Dr. Hollingsworth replied to place IVF back to D5 1/2 NS from LR, carried out. Latest BG 73. 1500: MANDEEP PICC placed. Per PICC nurse, may use now. Removed MARK midline, no bleeding, cath is intact. Applied pressure dressing. Placed All IV (IVF, Chirag and Dip) to MANDEEP PICC. 1530: Temp 102.8, given Tylenol SP as ordered., continue cooling blanket. Followed up again with radio re: the RUE duplex. 1515: BS 60, D50 given, became 84. 1840: No any significant changes noted. Still with fever, continuous cooling blanket.
[2019-11-01] MEDS: PHENYLEPHRINE 100 MG in IV NS 0.9% 240 ML IV PRN (19:11)
--- NOTE | 2019-11-01 20:24 | NUR ---
RAIL MAINTENANCE WORKER. INITIAL ASSESSMENT. RECEIVED THE PT REST ON THE BED. ORALLY INTUBATED. SEDATED WITH DIPRIVAN. ETT 7.5,LIP 22,FIO2 60%,PEEP 10.SAT 98%. LAN/WAN ENGINEER SHOWING S TACH. OGT INTACT,FC PATENT, LT UPPER ARM PICC LINE DIPRIVAN 25MCG/KG/MIN,IVF D51/2 NS 70ML/H,DANIELLA 0.9MCG/KG/MIN .FC PATENT. HOB ELEVATED. TEMPERATURE IS 102.7. COOLING BLANKET ON. WILL CONTINUE TO MONITOR VITALS.
[2019-11-01] MEDS: MEROPENEM 1 G in IV NS 0.9% 100 ML IV SCH (23:50)
[2019-11-02] VITALS (86 sets, daily range): BP systolic 86–132; BP diastolic 37–67
[2019-11-02] MEDS: BLOOD SUGAR DIAGNOSTIC 1 EACH STRIP IN SCH ×5 (01:26→23:59)
--- NOTE | 2019-11-02 01:34 | NUR ---
ICU/RN BS 155. NO INSULIN GIVEN DUE TO PATIENT BEING NPO AND BS HAS BEEN ON THE LOW SIDE. WILL CONTINUE TO MONITOR
[2019-11-02] MEDS: ACETAMINOPHEN 650 MG/SUPP.RECT RC PRN ×2 (04:33→18:54)
[2019-11-02 04:47] LABS: BASOPHILS % (AUTO) 0.3 % (0.0-2.0); HEMATOCRIT 33 % (33-45); HEMOGLOBIN 10.5 g/dL (11.5-14.8); LYMPHOCYTES # (AUTO) 1.6 /CMM (0.8-4.8); LYMPHOCYTES % (AUTO) 17.9 % (20.0-44.0); MEAN CORPUSCULAR HGB CONC 32 g/dl (31.0-36.0); MEAN CORPUSCULAR VOLUME 87 fL (82-100); MONOCYTES # (AUTO) 0.6 /CMM (0.1-1.30); MONOCYTES % (AUTO) 7.3 % (2.0-12.0); NEUTROPHILS # (AUTO) 6.6 /CMM (1.8-8.9); NEUTROPHILS % (AUTO) 74.5 % (43.0-81.0); PLATELET COUNT (AUTO) 79 /CMM (150-450); RED BLOOD CELL COUNT(AUTO) 3.76 MIL/uL (4.0-5.2); WHITE BLOOD COUNT (AUTO) 8.8 K/uL (4.3-11.0)
[2019-11-02 04:54] LABS: ALBUMIN 1.5 g/dL (3.4-5.0); BILIRUBIN,TOTAL 0.3 mg/dL (0.2-1.0); CALCIUM, SERUM 7.2 mg/dL (8.5-10.1); CREATININE 2.6 mg/dL (0.6-1.3); MAGNESIUM 1.7 mg/dL (1.8-2.4); PHOSPHORUS 3.7 mg/dL (2.5-4.9); POTASSIUM 4.7 mmol/L (3.5-5.1)
--- NOTE | 2019-11-02 06:00 | NUR ---
RN/ICU- PT. STATUS UNCHANGED. REPORT AND TRANSFER OF CARE TO Ketty VALENTINE RN.
[2019-11-02 06:05] LABS: LYMPHOCYTES % (MANUAL) 12 % (16-48); MONOCYTES % (MANUAL) 5 % (0-11.0); NEUTROPHILS % (MANUAL) 83 (42-76)
[2019-11-02] MEDS: PROPOFOL 100 ML IV PRN ×3 (06:36→18:50)
--- NOTE | 2019-11-02 08:00 | NUR ---
RT PATIENT REC'D ORALLY INTUBATED ON [facility] VENT WITH ORDERED SETTINGS. FIO2 TITRATED TO 40%. REMAINS ON PEEP OF +10. AIRWAY SECURE AND PATENT. ETT IN PROPER POSITION. VENTS ALARMS CHECKED+ AUDIBLE. PILAR REYES AT [facility]. CONT CURRENT PLAN OF RESP CARE. Addendum: 11/02/19 at 1329 by TAMIKO CHILD RT Amended: Links added.
[2019-11-02] MEDS: HYDROXYCHLOROQUINE 200 MG/8 ML SUSPENSION NG SCH ×2 (08:18→18:03)
[2019-11-02] MEDS: ASPIRIN 81 MG TAB.CHEW NG SCH (08:18)
[2019-11-02] MEDS: HYDROCORTISONE SOD SUCCINATE 100 MG/2 ML VIAL IV SCH (08:18)
[2019-11-02] MEDS: CLOTRIMAZOLE/BETAMETASONE DIPROPIONATE 15 GM TUBE TP SCH ×2 (08:19→17:34)
[2019-11-02] MEDS: HYDROGEL DRESSING 90 GM TUBE TP SCH (08:19)
[2019-11-02] MEDS: INSULIN GLARGINE, 100 UNIT/ML CARTRIDGE SQ SCH ×2 (09:00→17:53)
[2019-11-02 09:05] LABS: ABG BASE EXCESS -10.3 mmol/L; ABG OXYGEN SATURATION 95.4 % (92.0-98.5); ABG PCO2 28.5 mmHg (35.0-45.0); ABG PH 7.322 (7.350-7.450); ABG PO2 82.3 mmHg (75.0-100.0); AaDO2 170.1 mmHg; COHb 0.3 % (0.5-1.5); MetHb 0.3 % (0.0-1.5); O2Hb 94.8 % (94.0-97.0); PEEP,BG 10 cm H2O; SITE, ABG Right Femoral; VT, ABG 400 mL
[2019-11-02] MEDS: Sodium Bicarbonate 100 MEQ in IV D5/0.45 NACL 1,000 ML IV PRN (10:46)
--- NOTE | 2019-11-02 11:05 | NUR ---
RN NOTE 0715: Received patient awake, A/Ox3. On 6LPM of O2 via NC, 93% sat. With MARK PICC intact. On iso prec for Covid +. SR on the monitor. Patient verbalizing his breathing is better. 0830: Able to tolerate Pureed but preferred to keep pureed diet for now. 0900: S/E by Dr. Pearson, with order to may downgrade to [place]. 1000: Accompanied patient to go to [facility], observed little stronger compare from yesterday, PT on hold per Dr. Pearson, will follow up again tomorrow for PT. 1045: S/E by Dr. Weaver, agreed for [place] transfer. Addendum: 11/02/19 at 1110 by MILLIE SUMMERS RN please disregard, note for another patient.
[2019-11-02] MEDS: MEROPENEM 1 G in IV NS 0.9% 100 ML IV SCH ×2 (12:36→22:59)
--- NOTE | 2019-11-02 13:44 | NUR ---
RN NOTE 0715: Received patient sedated. With ETT to vent, tolerated settings at this time. With PEEP 10. On rectal temp monitoring 98.4 at this time. OGT clamped. MANDEEP PICC intact. Aguilar cath intact, noted with yellow colored urine with sediments drained to BSD. On iso prec for Covid + maintained and observed. 0830: Placed on 20 mcg but noted with agitation. 0900: Held Lantus dose for episode of hypoglycemia yesterday, will follow up with TF today. 1100: S/E by Dr. Hollingsworth, with order to change IVF with 1amp Bicarb on D5 1/2NS @ 75. 1340: Noted patient able to open eyes and track voice, made Dr. Pearson aware. Per US tech report, prelim, there are 2 arteries on RUE blocked, Dr. Pearson said to get consult for Dr. Salazar, Called Dr. Salazar's office and made aware.
--- NOTE | 2019-11-02 15:43 | NUR ---
RN NOTE S/E by Dr. Salazar re: right radial and ulnar blockage, no interventions for now since patient unstable. Will inform family.
[2019-11-02] MEDS: MICAFUNGIN SODIUM 100 MG in IV NS 0.9% 100 ML IV SCH (15:51)
--- NOTE | 2019-11-02 16:26 | NUR ---
RN NOTE Spoke with Billie(daughter) and made aware re: patient's condition.
[2019-11-02] MEDS: OSMOLITE 1.2 CAL 1,000 ML LIQUID GT PRN (17:34)
[2019-11-02] MEDS: PHENYLEPHRINE 100 MG in IV NS 0.9% 240 ML IV PRN (18:52)
--- NOTE | 2019-11-02 20:00 | NUR ---
[facility] POST SEDATED W/ DIPRIVAN GTT. AT 25MCG/KG/MIN. NO WIGGINS. ON THE VENT. PER ETT, ON AC MODE. SATS.-97%. EKG SR W/ HR-95. BP-108/55. ON TUBE FEEDS JOSE. WELL W/ NO RESIDUALS. ON DROPLET ISOLATION FOR COVID 19. PRECAUTIONS TAKEN PER PROTOCOL. AFEBRILE. NO S/S OF DISTRESS OR PAIN. NOTED TO HAVE SACRAL WD. INTACT W/ MEPILEX. WILL ASSESS PER PROTOCOL.
--- NOTE | 2019-11-02 21:00 | NUR ---
RN/ICU- SACRAL WD INTACT W/ MEPILEX. BASE IS BACK W/ SOME RED AREAS, SCANTY SEROSANGUINEOUS DRAINAGE. CLEANSED W/ NS. PAT DRY W/ 4X4, COVERED W/ MEPILEX. CONTINUE TO REPOSITION PT. Q2HRS AND PRN TOLERATED. HEELS OFF LOADED AT ALL TIMES. WILL CONSULT THOROUGHBRED HORSE FARM MANAGER .
[2019-11-03] VITALS (78 sets, daily range): BP systolic 72–131; BP diastolic 36–68
[2019-11-03] MEDS: INSULIN REGULAR, HUMAN 100 UNIT/ML 3 ML VIAL SQ PRN ×4 (00:01→17:31)
[2019-11-03] MEDS: PROPOFOL 100 ML IV PRN ×4 (00:15→18:11)
[2019-11-03] MEDS: Sodium Bicarbonate 100 MEQ in IV D5/0.45 NACL 1,000 ML IV PRN ×2 (01:17→16:42)
[2019-11-03 04:32] LABS: BASOPHILS % (AUTO) 0.4 % (0.0-2.0); HEMATOCRIT 31 % (33-45); HEMOGLOBIN 10.1 g/dL (11.5-14.8); LYMPHOCYTES # (AUTO) 1.3 /CMM (0.8-4.8); LYMPHOCYTES % (AUTO) 16.5 % (20.0-44.0); MEAN CORPUSCULAR HGB CONC 33 g/dl (31.0-36.0); MEAN CORPUSCULAR VOLUME 86 fL (82-100); MONOCYTES # (AUTO) 0.3 /CMM (0.1-1.30); NEUTROPHILS # (AUTO) 6.3 /CMM (1.8-8.9); NEUTROPHILS % (AUTO) 79.1 % (43.0-81.0); RED BLOOD CELL COUNT(AUTO) 3.63 MIL/uL (4.0-5.2)
[2019-11-03 04:45] LABS: CALCIUM, SERUM 7.1 mg/dL (8.5-10.1); CREATININE 2.5 mg/dL (0.6-1.3); POTASSIUM 4.5 mmol/L (3.5-5.1)
[2019-11-03 04:51] LABS: BILIRUBIN,DIRECT 0.1 mg/dL (0.0-0.2); BILIRUBIN,TOTAL 0.3 mg/dL (0.2-1.0); TOTAL PROTEIN, SERUM 5.5 g/dL (6.4-8.2)
[2019-11-03 04:57] LABS: ALBUMIN 1.4 g/dL (3.4-5.0)
[2019-11-03 05:14] LABS: PLATELET COUNT (AUTO) 30 /CMM (150-450)
[2019-11-03 05:39] LABS: LYMPHOCYTES % (MANUAL) 12 % (16-48); MONOCYTES % (MANUAL) 3 % (0-11.0)
[2019-11-03 05:40] LABS: NEUTROPHILS % (MANUAL) 85 (42-76)
[2019-11-03] MEDS: BLOOD SUGAR DIAGNOSTIC 1 EACH STRIP IN SCH ×4 (06:04→23:02)
--- NOTE | 2019-11-03 07:05 | NUR ---
RN NOTES RECEIVED PT ON BED, INTUBATED , SEDATED ON DIPRIVAN AT 25MCG/KG/MIN, DANIELLA AT .09 MCG/KG/MIN. WILL TITRATE ACCORDINGLY O2 SAT WNL, TOLERATING CURRENT VENT SETTING WELL, ON TELE SR HR IN 80'S , PIERSON DRINING TO GRAVITY, L UPPER ARM PICC LINE SITE CLEAN DRY AND INTACT, D51/2NS WITH BICARB RUNNING AT 75CC/HR , SR UP x3, CALL LIGHT WITHIN EASY REACH , BED LOCKED AND IN LOWEST POSITION, CONTINUE TO MONITOR .
--- NOTE | 2019-11-03 08:00 | NUR ---
RN NOTES UNABLE TO PALPATE R RADIAL PULSES , HANNA KAMARA AND DR CHANTEL GUTIÉRREZFED. WARM PACK APPLIED TO RIGHT AND LEFT ARMS PER MD ORDER , CONTINUE TO MONITOR.
[2019-11-03] MEDS: ASPIRIN 81 MG TAB.CHEW NG SCH (08:21)
[2019-11-03] MEDS: INSULIN GLARGINE, 100 UNIT/ML CARTRIDGE SQ SCH ×2 (08:25→17:33)
[2019-11-03] MEDS: CLOTRIMAZOLE/BETAMETASONE DIPROPIONATE 15 GM TUBE TP SCH ×2 (08:56→16:45)
[2019-11-03] MEDS: HYDROGEL DRESSING 90 GM TUBE TP SCH (08:56)
[2019-11-03 09:00] LABS: ABG BASE EXCESS -5.2 mmol/L; ABG OXYGEN SATURATION 92.8 % (92.0-98.5); ABG PCO2 32.6 mmHg (35.0-45.0); ABG PH 7.385 (7.350-7.450); ABG PO2 66.3 mmHg (75.0-100.0); AaDO2 181.4 mmHg; MetHb 0.5 % (0.0-1.5); O2Hb 92.3 % (94.0-97.0); PEEP,BG 10 cm H2O; SITE, ABG Right Brachial; VT, ABG 400 mL
--- NOTE | 2019-11-03 11:45 | NUR ---
MENDOZA WALTERS GLUCOSE FINGER STICK SHOWS 11, STAT BG DRAWING ORDERED . REPEATED FINGER STICK BG= 145. NO SIGN AND SYMPTOMS OF HYPOGLYCEMIA NOTED , CONTINUE TO MONITOR .
[2019-11-03] MEDS: MEROPENEM 1 G in IV NS 0.9% 100 ML IV SCH ×2 (11:59→22:54)
[2019-11-03 12:29] LABS: PLATELET COUNT (AUTO) 100 /CMM (150-450)
[2019-11-03 13:36] LABS: D-DIMER > 35.20 mg/L(FEU (0.17-0.50)
--- NOTE | 2019-11-03 15:18 | NUR ---
RT NOTE: PATIENT RECEIVED ORALLY INTUBATED WITH 7.5 ETT SECURED AT 22 CM AT MID LIP LINE ON MECHANICAL VENT. ALARMS VERIFIED AND AUDIBLE. VENT PLUGGED INTO RED OUTLET. VENT CHANGES PER DR GOLDEN'S ORDERS. AMBU BAG AT [facility].
--- NOTE | 2019-11-03 15:40 | NUR ---
RN NOTES FIBRINOGEN IS <90 , PRESS FEEDER NOTIFIED, NEW ORDER RECEIVED . NO SIGN OF BLEEDING NOTED , CONTINUE TO MONITOR .
--- NOTE | 2019-11-03 15:54 | NUR ---
RN NOTES BLOOD PRODUCT TRANSFUSION TELEPHONE CONSENT OBTAINED FROM PT'S DAUGHTER.
[2019-11-03] MEDS: PHENYLEPHRINE 100 MG in IV NS 0.9% 240 ML IV PRN (16:41)
[2019-11-03] MEDS: OSMOLITE 1.2 CAL 1,000 ML LIQUID GT PRN (17:56)
--- NOTE | 2019-11-03 18:29 | NUR ---
RN NOTES PT REMAINS INTUBATED AND SEDATED, ON DIPRIVAN AT 20 MCG/KG/MIN, DANIELLA AT 1.8 MCG/KG/MIN DANGELO DESOUZA DRINING TO GRAVITY, TOLERATING TF AT 45CC/HR WELL, NO RESIDUAL NOTED , CRYOPRECIPITATE IS NOT READY FROM BLOOD BANK YET, SR UP x3, CALL LIGHT WITHIN EASY REACH, BED LOCKED AND IN LOWEST POSITION, WILL ENDORSE TO EDGER MACHINE OPERATOR NURSE FOR CONTINUITY OF CARE
[2019-11-04] VITALS (48 sets, daily range): BP systolic 67–123; BP diastolic 39–74
[2019-11-04] MEDS: PROPOFOL 100 ML IV PRN ×3 (02:55→16:57)
[2019-11-04] MEDS: PHENYLEPHRINE 100 MG in IV NS 0.9% 240 ML IV PRN ×2 (02:57→14:13)
[2019-11-04 04:36] LABS: BASOPHILS % (AUTO) 0.2 % (0.0-2.0); HEMATOCRIT 28 % (33-45); HEMOGLOBIN 9.1 g/dL (11.5-14.8); LYMPHOCYTES # (AUTO) 0.8 /CMM (0.8-4.8); LYMPHOCYTES % (AUTO) 7.1 % (20.0-44.0); MEAN CORPUSCULAR HGB CONC 33 g/dl (31.0-36.0); MEAN CORPUSCULAR VOLUME 85 fL (82-100); MONOCYTES # (AUTO) 0.3 /CMM (0.1-1.30); MONOCYTES % (AUTO) 2.7 % (2.0-12.0); NEUTROPHILS # (AUTO) 10.6 /CMM (1.8-8.9); PLATELET COUNT (AUTO) 87 /CMM (150-450); RED BLOOD CELL COUNT(AUTO) 3.24 MIL/uL (4.0-5.2); WHITE BLOOD COUNT (AUTO) 11.8 K/uL (4.3-11.0)
[2019-11-04 04:43] LABS: CALCIUM, SERUM 7.3 mg/dL (8.5-10.1); CREATININE 2.2 mg/dL (0.6-1.3); POTASSIUM 3.5 mmol/L (3.5-5.1)
[2019-11-04 05:08] LABS: LYMPHOCYTES % (MANUAL) 7 % (16-48); NEUTROPHILS % (MANUAL) 93 (42-76)
[2019-11-04 05:09] LABS: MONOCYTES % (MANUAL) 1 % (0-11.0)
[2019-11-04] MEDS: BLOOD SUGAR DIAGNOSTIC 1 EACH STRIP IN SCH ×3 (05:58→18:21)
[2019-11-04] MEDS: INSULIN REGULAR, HUMAN 100 UNIT/ML 3 ML VIAL SQ PRN ×3 (06:01→18:24)
--- NOTE | 2019-11-04 07:30 | NUR ---
EMPLOYEE BENEFITS ADMINISTRATOR NOTES PATIENT IS ON PROPOFOL SEDATED,TRACH SATURATING 96% SINUS RHYTHM . ON COVID DROPLET ISOLATION. HAS PIERSON AND FLEX-SEAL. REPORTED BY THE WOUND CARE NURSE THAT PATIENT HAS DEVELOPED DTI ON SACRUM AREA. PICTURE WILL BE TAKEN. CALL LIGHT WITHIN REACH , BED AT THE LOWEST POSITION LOCKED. WILL CONTINUE TO MONITOR THE PATIENT.
--- NOTE | 2019-11-04 08:00 | NUR ---
SKILLED NURSING PROFESSIONAL NOTES NO RESIDUAL NOTED FROM THE ORAL GT SIDE FLUSHED WELL WITH FREE WATER. PATENT WORKING WELL.
[2019-11-04 08:19] LABS: ABG BASE EXCESS -2.1 mmol/L; ABG OXYGEN SATURATION 92.7 % (92.0-98.5); ABG PCO2 37.2 mmHg (35.0-45.0); ABG PH 7.398 (7.350-7.450); ABG PO2 65.9 mmHg (75.0-100.0); AaDO2 248.8 mmHg; COHb 0.3 % (0.5-1.5); MetHb 0.4 % (0.0-1.5); O2Hb 92.1 % (94.0-97.0); SITE, ABG Left Brachial
--- NOTE | 2019-11-04 08:28 | NUR ---
WOUND CARE CONSULT: REVIEWED DOCUMENTATION INCLUDING CHART AND PHOTOS WHICH SHOW DEEP TISSUE INJURY TO SACRAL AREA EXTENDING TO BUTTOCK WHICH IS IN EVOLUTION. RECOMMENDATIONS MADE FOR SKIN PROTECTION AND WOUND CARE. DISCUSSED WITH NURSING STAFF. RECOMMEND SURGICAL CONSULT. DR ERIK HUTCHINSON NOTIFIED OF CONSULT REQUEST. FIRST STEP LOW AIRLOSS MATTRESS ON ORDER. CURRENT KACY SCORE IS 8. PT NOTED TO HAVE MULTIPLE CO-MORBIDITIES INCLUDING COVID 19, BILATERAL PNEUMONIA, AND ACUTE RENAL FAILURE. MD IN AGREEMENT WITH PLAN OF CARE.
[2019-11-04] MEDS: ASPIRIN 81 MG TAB.CHEW NG SCH (08:46)
[2019-11-04] MEDS: HYDROGEL DRESSING 90 GM TUBE TP SCH (08:47)
[2019-11-04] MEDS: CLOTRIMAZOLE/BETAMETASONE DIPROPIONATE 15 GM TUBE TP SCH ×2 (08:47→17:06)
[2019-11-04] MEDS: INSULIN GLARGINE, 100 UNIT/ML CARTRIDGE SQ SCH ×2 (09:11→17:22)
[2019-11-04] MEDS: MEROPENEM 1 G in IV NS 0.9% 100 ML IV SCH ×2 (10:32→22:31)
[2019-11-04] MEDS: Sodium Bicarbonate 100 MEQ in IV D5/0.45 NACL 1,000 ML IV PRN (10:34)
[2019-11-04 10:49] LABS: PLATELET COUNT (AUTO) 101 /CMM (150-450)
[2019-11-04 11:03] LABS: D-DIMER > 35.00 mg/L(FEU (0.17-0.50)
--- NOTE | 2019-11-04 11:06 | NUR ---
WOODWORKING SHOP LABORER NOTES RECEIVED A CALL FROM PHARMACY. THEY INFORMED THAT PATIENT NEEDS TRIGLYCERIDE LAB RESULT BECAUSE SHE HAS BEEN ON DIPRIVAN SINCE 10/28/2019. TRIGLYCERIDE LAB ORDERED.
[2019-11-04] MEDS: OSMOLITE 1.2 CAL 1,000 ML LIQUID GT PRN (12:38)
--- NOTE | 2019-11-04 13:05 | NUR ---
LOW VOLTAGE TECHNICIAN NOTES TRIED TO TITER DOWN THE DIPRIVAN BUT PATIENT ` S RR RATE WENT FROM 23 TO 27. RETURNED TO ORIGINAL 25MSG.
--- NOTE | 2019-11-04 19:26 | NUR ---
RADIO DIVISION CAPTAIN NOTES PATIENT IN BED COMFORTABLE NO SOB OR DISCOMFORT NOTED AT THIS TIME. ALL NEEDS ATTENDED. BED AT THE LOWEST POSITION LOCKED. CALL LIGHT WITHIN REACH. ENDORSED TO JAZZ SINGER NURSE FOR SABINO.
[2019-11-04] MEDS ORDERED: VASOPRESSIN INJ 20 UNIT/ML VIAL ONE (22:14)
[2019-11-04] MEDS: VASOPRESSIN INJ 40 UNIT in IV NS 0.9% 38 ML IV PRN (23:23)
[2019-11-05] VITALS (88 sets, daily range): BP systolic 66–185; BP diastolic 19–141
[2019-11-05] MEDS: BLOOD SUGAR DIAGNOSTIC 1 EACH STRIP IN SCH ×4 (00:21→18:11)
[2019-11-05] MEDS: INSULIN REGULAR, HUMAN 100 UNIT/ML 3 ML VIAL SQ PRN ×3 (00:26→18:14)
[2019-11-05] MEDS: PHENYLEPHRINE 100 MG in IV NS 0.9% 240 ML IV PRN ×3 (00:43→15:47)
[2019-11-05] MEDS: PROPOFOL 100 ML IV PRN ×3 (02:55→18:08)
[2019-11-05 04:48] LABS: BASOPHILS # (AUTO) 0.2 /CMM (0.0-0.2); BASOPHILS % (AUTO) 0.8 % (0.0-2.0); HEMATOCRIT 27 % (33-45); LYMPHOCYTES # (AUTO) 0.7 /CMM (0.8-4.8); LYMPHOCYTES % (AUTO) 3.6 % (20.0-44.0); MEAN CORPUSCULAR HGB CONC 33 g/dl (31.0-36.0); MEAN CORPUSCULAR VOLUME 84 fL (82-100); MONOCYTES # (AUTO) 0.2 /CMM (0.1-1.30); MONOCYTES % (AUTO) 0.9 % (2.0-12.0); NEUTROPHILS # (AUTO) 19.3 /CMM (1.8-8.9); NEUTROPHILS % (AUTO) 94.7 % (43.0-81.0); PLATELET COUNT (AUTO) 129 /CMM (150-450); RED BLOOD CELL COUNT(AUTO) 3.24 MIL/uL (4.0-5.2); WHITE BLOOD COUNT (AUTO) 20.4 K/uL (4.3-11.0)
[2019-11-05 05:05] LABS: CALCIUM, SERUM 7.4 mg/dL (8.5-10.1); CREATININE 1.8 mg/dL (0.6-1.3); POTASSIUM 3.8 mmol/L (3.5-5.1)
[2019-11-05] MEDS ORDERED: NOREPINEPHRINE 4 MG/4 ML AMPUL IV ONE ×2 (05:18→05:24)
[2019-11-05 05:25] LABS: THYROID STIMULATING HORMONE 11.457 uIU/mL (0.358-3.74)
[2019-11-05] MEDS: NOREPINEPHRINE 32 MG in IV NS 0.9% 218 ML IV PRN (05:29)
[2019-11-05] MEDS: Sodium Bicarbonate 100 MEQ in IV D5/0.45 NACL 1,000 ML IV PRN ×2 (05:55→18:08)
--- NOTE | 2019-11-05 07:15 | NUR ---
RN INITIAL NOTES RECEIVED PT INTUBATED, ON VENT. NO RESPIRATORY DISTRESS NOTED. NO SOB NOTED. NO SIGNS OF PAIN NOTED. PT SEDATED, ON DIPRIVAN AT 25MCG/KG/MIN. OG IN PLACE. TOLERATING GTF WELL. MANDEEP PICC IN PLACE. ON LEVOPHED, VASOPRESSIN AND NEOSYNEPHRINE. WILL TITRATE ACCORDINGLY. FC AND RECTAL TUBE IN PLACE. BLE ELEVATED. WILL CONTINUE TO MONITOR
[2019-11-05] MEDS: ASPIRIN 81 MG TAB.CHEW NG SCH (08:50)
[2019-11-05] MEDS: HYDROCORTISONE SOD SUCCINATE 100 MG/2 ML VIAL IV SCH ×3 (08:50→17:32)
[2019-11-05] MEDS: CLOTRIMAZOLE/BETAMETASONE DIPROPIONATE 15 GM TUBE TP SCH ×2 (08:51→17:32)
[2019-11-05] MEDS: HYDROGEL DRESSING 90 GM TUBE TP SCH (08:51)
[2019-11-05] MEDS: INSULIN GLARGINE, 100 UNIT/ML CARTRIDGE SQ SCH ×2 (08:59→18:12)
[2019-11-05] MEDS: VASOPRESSIN INJ 40 UNIT in IV NS 0.9% 38 ML IV PRN (09:22)
[2019-11-05] MEDS: MEROPENEM 1 G in IV NS 0.9% 100 ML IV SCH ×2 (10:52→23:19)
[2019-11-05 12:38] LABS: D-DIMER 25.6 mg/L(FEU (0.17-0.50)
[2019-11-05] MEDS: DEXTROSE 50%-WATER 50 ML DISP.SYRIN IV PRN (12:42)
--- NOTE | 2019-11-05 13:25 | NUR ---
RN NOTES 0830 SEEN AND EXAMINED BY PATSY KAMARA NP. AWARE OF LAB VALUES AND CXR RESULT. PT ON 3 PRESSORS, WILL TITRATE ACCORDINGLY. PER PATSY, HE SPOKE WITH KHOA (DAUGHTER) YESTERDAY AND WANTS TO KEEP PT FULL CODE. WILL CLOSELY MONITOR 1300 SEEN AND EXAMINED BY DR PELLETIER. PT REMAINS INTUBATED, ON VENT. NO RESPIRATORY DISTRESS. AWARE OG LAB VALUES AND CXR RESULT. NO NEW ORDER MADE. WILL CONTINUE TO MONITOR
[2019-11-05] MEDS: OSMOLITE 1.2 CAL 1,000 ML LIQUID GT PRN (13:29)
--- NOTE | 2019-11-05 13:30 | NUR ---
RN NOTES UNABLE TO GET RESULT FOR FINGERSTICK SUGAR CHECK. FINGERS ARE COLD AND PURPLISH. CALLED PATSY KAMARA NP. AWAITING FOR CALL BACK. PT INTUBATED,ON VENT. ON GTF. WILL CLOSELY MONITOR
--- NOTE | 2019-11-05 18:11 | NUR ---
RN NOTES CALLED PATSY KAMARA NP REGARDING GLUCOSE RESULT, 423. PT ON GTF. TOLERATING WELL. PT HAS LANTUS 2O UNITS ORDER FOR 1700 AND REGULAR INSULIN MODERATE SLIDING SCALE. PER SCREEN DOOR MAKER, GIVE INSULIN ORDERED. RECHECK GLUCOSE AT 2100.
--- NOTE | 2019-11-05 18:42 | NUR ---
RN CLOSING NOTES PT REMAINS INTUBATED, ON VENT. NO RESPIRATORY DISTRESS NOTED. NO SOB NOTED. NO SIGNS OF PAIN NOTED. TOLERATING GTF WELL. PT REMAINS SEDATED, ON DIPRIVAN. ON DANIELLA AT 1MCG/KG/MIN. TITRATED ACCORDINGLY. FC AND FLEXISEAL IN PLACE. TX PROVIDED ORDERED. KEPT CLEAN AND DRY. REPOSITIONED. WILL ENDORSE FOR CONTINUITY OF CARE.
[2019-11-06] VITALS (90 sets, daily range): BP systolic 70–154; BP diastolic 42–71
[2019-11-06] MEDS ORDERED: INSULIN REGULAR, HUMAN 100 UNIT/ML 3 ML VIAL SQ ONE (00:30)
[2019-11-06] MEDS: INSULIN REGULAR, HUMAN 100 UNIT/ML 3 ML VIAL SQ PRN ×5 (01:10→23:48)
[2019-11-06] MEDS: PROPOFOL 100 ML IV PRN ×3 (04:00→17:08)
[2019-11-06 04:37] LABS: BASOPHILS % (AUTO) 0.1 % (0.0-2.0); HEMATOCRIT 26 % (33-45); HEMOGLOBIN 8.4 g/dL (11.5-14.8); LYMPHOCYTES # (AUTO) 0.4 /CMM (0.8-4.8); MEAN CORPUSCULAR HGB CONC 32 g/dl (31.0-36.0); MEAN CORPUSCULAR VOLUME 86 fL (82-100); MONOCYTES # (AUTO) 0.2 /CMM (0.1-1.30); MONOCYTES % (AUTO) 1.2 % (2.0-12.0); NEUTROPHILS # (AUTO) 18.7 /CMM (1.8-8.9); NEUTROPHILS % (AUTO) 96.7 % (43.0-81.0); PLATELET COUNT (AUTO) 178 /CMM (150-450); RED BLOOD CELL COUNT(AUTO) 3.06 MIL/uL (4.0-5.2); WHITE BLOOD COUNT (AUTO) 19.4 K/uL (4.3-11.0)
[2019-11-06 04:45] LABS: CALCIUM, SERUM 7.3 mg/dL (8.5-10.1); POTASSIUM 4.2 mmol/L (3.5-5.1)
[2019-11-06] MEDS: BLOOD SUGAR DIAGNOSTIC 1 EACH STRIP IN SCH ×5 (06:05→23:46)
[2019-11-06] MEDS: OSMOLITE 1.2 CAL 1,000 ML LIQUID GT PRN (06:14)
--- NOTE | 2019-11-06 07:10 | NUR ---
RN INITIAL NOTES RECEIVED PT INTUBATED, ON VENT. NO RESPIRATORY DISTRESS NOTED. NO SOB NOTED. NO SIGNS OF PAIN NOTED. PT SEDATED, ON DIPRIVAN AT 25MCG/KG/MIN. OG IN PLACE. TOLERATING GTF WELL. MANDEEP PICC IN PLACE. ON NEOSYNEPHRINE AT 0.5MCG/KG/MIN. WILL TITRATE ACCORDINGLY. FC AND RECTAL TUBE IN PLACE. BLE ELEVATED. WILL CONTINUE TO MONITOR
[2019-11-06 08:48] LABS: ABG BASE EXCESS 5.5 mmol/L; ABG OXYGEN SATURATION 87.4 % (92.0-98.5); ABG PCO2 49.2 mmHg (35.0-45.0); ABG PH 7.413 (7.350-7.450); ABG PO2 53.3 mmHg (75.0-100.0); AaDO2 247.9 mmHg; COHb 0.4 % (0.5-1.5); MetHb 0.6 % (0.0-1.5); O2Hb 86.5 % (94.0-97.0); SITE, ABG Right Femoral
[2019-11-06] MEDS: CLOTRIMAZOLE/BETAMETASONE DIPROPIONATE 15 GM TUBE TP SCH ×2 (08:50→16:48)
[2019-11-06] MEDS: HYDROGEL DRESSING 90 GM TUBE TP SCH (08:50)
[2019-11-06] MEDS: HYDROCORTISONE SOD SUCCINATE 100 MG/2 ML VIAL IV SCH ×3 (08:54→16:48)
[2019-11-06] MEDS: ASPIRIN 81 MG TAB.CHEW NG SCH (08:54)
[2019-11-06] MEDS: INSULIN GLARGINE, 100 UNIT/ML CARTRIDGE SQ SCH ×2 (08:55→17:09)
[2019-11-06 09:07] LABS: IMMUNOGLOBULIN A, SERUM 335 mg/dL (87-352); IMMUNOGLOBULIN G, SERUM 1173 mg/dL (586-1602); IMMUNOGLOBULIN M, SERUM 119 mg/dL (26-217)
[2019-11-06] MEDS ORDERED: HEPARIN INFUSION/D5W 500 ML IV PRN (09:30)
--- NOTE | 2019-11-06 09:30 | NUR ---
RN NOTES 0830 SEEN AND EXAMINED BY PATSY KAMARA NP. AWARE OF LAB VALUES AND CXR RESULT. PT STILL INTUBATED AND SEDATED. ON DANIELLA AT 0.5MCG/KG/MIN. TOLERATING WELL. WILL CONTINUE TO MONITOR 09 DR HANNON CALLED AND DISCUSSED COAGULATION RESULT. PER DR HANNON, SPOKE WITH VASCULAR SURGEON AND CLEARED PT TO START HEPARIN DRIP. WILL FOLLOW PROTOCOL. WILL CLOSELY MONITOR FOR SIGNS OF ACTIVE BLEEDING
[2019-11-06] MEDS: MEROPENEM 1 G in IV NS 0.9% 100 ML IV SCH ×2 (10:19→23:03)
[2019-11-06] MEDS: IV LR 1000 ML 1,000 ML IV PRN (11:51)
[2019-11-06 13:03] LABS: BILIRUBIN,DIRECT 0.1 mg/dL (0.0-0.2); BILIRUBIN,TOTAL 0.2 mg/dL (0.2-1.0); TOTAL PROTEIN, SERUM 5.1 g/dL (6.4-8.2)
[2019-11-06 13:04] LABS: ALBUMIN 1.3 g/dL (3.4-5.0)
[2019-11-06] MEDS ORDERED: diphenhydrAMINE HCL 50 MG/ML VIAL IV ONE (13:50)
[2019-11-06] MEDS ORDERED: ACETAMINOPHEN 650 MG/20.3 ML UDC NG ONE (13:50)
[2019-11-06] MEDS ORDERED: TOCILIZUMAB 400 MG in IV NS 0.9% 80 ML IV ONE (14:30)
--- NOTE | 2019-11-06 18:46 | NUR ---
RN CLOSING NOTES PT REMAINS INTUBATED, ON VENT. NO RESPIRATORY DISTRESS NOTED. NO SOB NOTED. NO SIGNS OF PAIN NOTED. TOLERATING GTF WELL. PT REMAINS SEDATED, ON DIPRIVAN. ON HEPARIN DRIP. FC AND FLEXISEAL IN PLACE. TX PROVIDED ORDERED. KEPT CLEAN AND DRY. REPOSITIONED. WILL ENDORSE FOR CONTINUITY OF CARE.
--- NOTE | 2019-11-06 20:18 | NUR ---
COVER ASSEMBLER NOTES PTT 43.6. RATE INCREASED BY 150 UNITS/HOUR FROM 1035 TO 1185 UNITS/HOUR
[2019-11-06] MEDS: PHENYLEPHRINE 100 MG in IV NS 0.9% 240 ML IV PRN (20:25)
--- NOTE | 2019-11-06 20:27 | NUR ---
PT INTUBATED ON VENT. 7.5 ETT @22CM LIP LINE. PT TOLERATING VENT SETTINGS. SX'D FOR SML AMT OF THIN WHITE SECRETIONS. VENT ALARMS SET AND AUDIBLE. ETT SECURED, CUFF CHECKED. VENT PLUGGED INTO RED OUTLET. CONTINUE [facility] VENT SUPPORT. Addendum: 11/06/19 at 2028 by PABLO BARAJAS RT Amended: Links added.
[2019-11-07] VITALS (62 sets, daily range): BP systolic 95–159; BP diastolic 46–97
[2019-11-07] MEDS: PROPOFOL 10MG/ML 50ML 50 ML IV PRN ×4 (01:21→21:41)
[2019-11-07 03:07] LABS: BASOPHILS % (AUTO) 0.2 % (0.0-2.0); MONOCYTES # (AUTO) 0.2 /CMM (0.1-1.30); NEUTROPHILS # (AUTO) 12.2 /CMM (1.8-8.9)
[2019-11-07 03:12] LABS: HEMATOCRIT 21 % (33-45); LYMPHOCYTES # (AUTO) 0.5 /CMM (0.8-4.8); LYMPHOCYTES % (AUTO) 3.7 % (20.0-44.0); MEAN CORPUSCULAR HGB CONC 32 g/dl (31.0-36.0); MEAN CORPUSCULAR VOLUME 86 fL (82-100); MONOCYTES % (AUTO) 1.3 % (2.0-12.0); NEUTROPHILS % (AUTO) 94.8 % (43.0-81.0); PLATELET COUNT (AUTO) 163 /CMM (150-450); RED BLOOD CELL COUNT(AUTO) 2.42 MIL/uL (4.0-5.2); WHITE BLOOD COUNT (AUTO) 12.8 K/uL (4.3-11.0)
[2019-11-07 03:16] LABS: HEMOGLOBIN 6.7 g/dL (11.5-14.8)
[2019-11-07 03:22] LABS: BILIRUBIN,TOTAL 0.2 mg/dL (0.2-1.0); CALCIUM, SERUM 7.2 mg/dL (8.5-10.1); POTASSIUM 4.5 mmol/L (3.5-5.1); TOTAL PROTEIN, SERUM 4.8 g/dL (6.4-8.2)
[2019-11-07 03:25] LABS: ALBUMIN 1.2 g/dL (3.4-5.0)
[2019-11-07 03:52] LABS: EOSINOPHILS % (MANUAL) 1 % (0-4); LYMPHOCYTES % (MANUAL) 5 % (16-48); MONOCYTES % (MANUAL) 2 % (0-11.0); NEUTROPHILS % (MANUAL) 92 (42-76)
--- NOTE | 2019-11-07 04:00 | NUR ---
BILLET CHECKER NOTES RECEIVED CALL FROM LAB, RGEARDING CRITICAL RESULTS, HEMOGLOBIN DOWN TO 6.7. DR ANTWAN TANNER NOTIFIED, WITH ORDER TO TRANSFUSE 1 UNIT PRBC, AND TO DC HEPARIN GTT. WILL CARRY OUT NEW ORDERS AND MONITOR CLOSELY
[2019-11-07] MEDS: OSMOLITE 1.2 CAL 1,000 ML LIQUID GT PRN (05:39)
[2019-11-07] MEDS: BLOOD SUGAR DIAGNOSTIC 1 EACH STRIP IN SCH ×4 (05:55→23:54)
[2019-11-07] MEDS: INSULIN REGULAR, HUMAN 100 UNIT/ML 3 ML VIAL SQ PRN ×4 (06:26→23:56)
--- NOTE | 2019-11-07 07:00 | NUR ---
DIRECTOR OF PRIMARY NOTES PATIENT RESTING BED, APPEARS COMFORTABLE, REMAINS SEDATED ON PROPOFOL DRIP, CURRENTLY @ 25MCG. ALSO REMAINS ON NEOSYNEPHRINE DRIP AT LOW RATE, CURRENTLY 0.3MCG. WILL ENDORSE THE PATIENT TO THE AM SHIFT NURSE FOR SABINO
--- NOTE | 2019-11-07 07:10 | NUR ---
RN INITIAL NOTES RECEIVED PT INTUBATED, ON VENT. PT SEDATED, ON DIPRIVAN AT 25MCGH/KG/MIN. ON DANIELLA AT 0.3MCG/KG/MIN. WILL TITRATE ACCORDINGLY. MANDEEP PICC IN PLACE. OG IN PLACE. TOLERATING GTF WELL. FC AND FLEXISEAL IN PLACE. BLE ELEVATED. WILL CONTINUE TO MONITOR
--- NOTE | 2019-11-07 07:38 | NUR ---
RT Pt received orally intubated on mechanical ventilation with noted settings. Alarms are set and audible with BVM by bedside. No SOB or respiratory distress noted. Addendum: 11/07/19 at 1420 by SOM ZAMARRIPA RT Amended: Links added.
[2019-11-07] MEDS: HYDROCORTISONE SOD SUCCINATE 100 MG/2 ML VIAL IV SCH ×3 (08:32→16:07)
[2019-11-07] MEDS: HYDROGEL DRESSING 90 GM TUBE TP SCH (08:32)
[2019-11-07] MEDS: CLOTRIMAZOLE/BETAMETASONE DIPROPIONATE 15 GM TUBE TP SCH ×2 (08:32→16:07)
[2019-11-07] MEDS: ASPIRIN 81 MG TAB.CHEW NG SCH (08:32)
[2019-11-07] MEDS: INSULIN GLARGINE, 100 UNIT/ML CARTRIDGE SQ SCH ×2 (08:34→17:17)
[2019-11-07] MEDS: IV LR 1000 ML 1,000 ML IV PRN (08:50)
--- NOTE | 2019-11-07 09:00 | NUR ---
RN NOTES 0830 SEEN AND EXAMINED BY DR GOLDEN. REMAINS INTUBATED, ON DANIELLA AND DIPRIVAN. WILL TITRATE ACCORDINGLY. MD AWARE OF LAB VALUES AND IMAGING STUDIES. WILL DO SEDATION VACATION. WILL CLOSELY MONITOR
[2019-11-07] MEDS: MEROPENEM 1 G in IV NS 0.9% 100 ML IV SCH ×2 (11:43→22:43)
[2019-11-07 16:15] LABS: ABG BASE EXCESS 5.3 mmol/L; ABG PCO2 54.4 mmHg (35.0-45.0); ABG PH 7.376 (7.350-7.450); ABG PO2 140.4 mmHg (75.0-100.0); AaDO2 372.9 mmHg; COHb 0.2 % (0.5-1.5); MetHb 0.8 % (0.0-1.5); PEEP,BG 12 cm H2O; SITE, ABG Left Brachial; VENT MODE, BG AC 80%; VT, ABG 400 mL
--- NOTE | 2019-11-07 18:27 | NUR ---
RN CLOSING NOTES PT REMAINS INTUBATED, ON VENT. NO RESPIRATORY DISTRESS NOTED. NO SOB NOTED. NO SIGNS OF PAIN NOTED. TOLERATING GTF WELL. PT REMAINS SEDATED, ON DIPRIVAN. FC AND FLEXISEAL IN PLACE. TX PROVIDED ORDERED. KEPT CLEAN AND DRY. REPOSITIONED. WILL ENDORSE FOR CONTINUITY OF CARE.
[2019-11-07 20:45] LABS: HEMOGLOBIN 12.9 g/dL (11.5-14.8)
--- NOTE | 2019-11-07 21:23 | NUR ---
HOTEL CASINO FLOORPERSON NOTES RECEIVED CALL FROM DR HANNON. UPDATED REGARDING DISCONTINUATION OF HEPARIN DRIP DUE TO LOW HEMOGLOBIN, S/P [address] OF [address] HANNON, CONTINUE TO CLOSELY MONITOR
[2019-11-07] MEDS ORDERED: PROPOFOL 100 ML ONE (22:40)
[2019-11-08] VITALS (28 sets, daily range): BP systolic 99–151; BP diastolic 43–69
[2019-11-08] MEDS: PROPOFOL 10MG/ML 50ML 50 ML IV PRN ×5 (01:20→20:06)
[2019-11-08 04:06] LABS: *SPE A/G RATIO 0.6 (0.7-1.7); *SPE ALBUMIN 1.7 g/dL (2.9-4.4); *SPE ALPHA-1-GLOBULIN 0.3 g/dL (0.0-0.4); *SPE ALPHA-2-GLOBULIN 0.8 g/dL (0.4-1.0); *SPE BETA GLOBULIN 0.8 g/dL (0.7-1.3); *SPE M-SPIKE Not Observed g/dL (Not Observed); *SPEGAMMA GLOBULIN 1.1 g/dL (0.4-1.8)
[2019-11-08 04:38] LABS: BILIRUBIN,TOTAL 0.3 mg/dL (0.2-1.0); CALCIUM, SERUM 7.4 mg/dL (8.5-10.1); CREATININE 1.6 mg/dL (0.6-1.3); POTASSIUM 4.6 mmol/L (3.5-5.1); TOTAL PROTEIN, SERUM 4.9 g/dL (6.4-8.2)
[2019-11-08 04:51] LABS: ALBUMIN 1.4 g/dL (3.4-5.0)
[2019-11-08] MEDS: IV LR 1000 ML 1,000 ML IV PRN (05:01)
[2019-11-08] MEDS: BLOOD SUGAR DIAGNOSTIC 1 EACH STRIP IN SCH ×3 (05:27→18:51)
[2019-11-08 05:45] LABS: BASOPHILS % (AUTO) 0.4 % (0.0-2.0); EOSINOPHILS % (AUTO) 0.4 % (0.0-6.0); HEMATOCRIT 28 % (33-45); HEMOGLOBIN 9.2 g/dL (11.5-14.8); LYMPHOCYTES # (AUTO) 0.5 /CMM (0.8-4.8); LYMPHOCYTES % (AUTO) 5.4 % (20.0-44.0); MEAN CORPUSCULAR HGB CONC 33 g/dl (31.0-36.0); MEAN CORPUSCULAR VOLUME 87 fL (82-100); MONOCYTES # (AUTO) 0.3 /CMM (0.1-1.30); MONOCYTES % (AUTO) 3.3 % (2.0-12.0); NEUTROPHILS # (AUTO) 7.8 /CMM (1.8-8.9); NEUTROPHILS % (AUTO) 90.5 % (43.0-81.0); PLATELET COUNT (AUTO) 151 /CMM (150-450); RED BLOOD CELL COUNT(AUTO) 3.22 MIL/uL (4.0-5.2); WHITE BLOOD COUNT (AUTO) 8.6 K/uL (4.3-11.0)
[2019-11-08] MEDS: OSMOLITE 1.2 CAL 1,000 ML LIQUID GT PRN (06:05)
[2019-11-08] MEDS: INSULIN REGULAR, HUMAN 100 UNIT/ML 3 ML VIAL SQ PRN ×3 (06:09→18:52)
--- NOTE | 2019-11-08 07:00 | NUR ---
SENIOR SHAREPOINT DEVELOPER NOTES PATIENT RESTING BED, APPEARS COMFORTABLE, REMAINS ORALLY INTUBATED ON MECHANICAL VENT AND SEDATED ON PROPOFOL DRIP, CURRENTLY @ 25MCG. WILL ENDORSE THE PATIENT TO THE AM SHIFT NURSE FOR SABINO
--- NOTE | 2019-11-08 07:50 | NUR ---
WOUND CARE FOLLOW UP: REVIEWED CHART AND PHOTO DOCUMENTATION. DR ERIK HUTCHINSON CURRENTLY ON CASE FOR SACRAL WOUND. DISCUSSED SKIN PROTECTION AND WOUND CARE WITH NURSING STAFF.
--- NOTE | 2019-11-08 07:54 | NUR ---
PER REPORT FROM LEXII PROPOFOL WAS OVERROAD FROM [facility] AND CHARTED D/T NO SUPPLY FROM PHARMACY OVERNIGHT
[2019-11-08] MEDS: ASPIRIN 81 MG TAB.CHEW NG SCH (11:00)
[2019-11-08] MEDS: HYDROCORTISONE SOD SUCCINATE 100 MG/2 ML VIAL IV SCH (11:00)
[2019-11-08] MEDS: HYDROGEL DRESSING 90 GM TUBE TP SCH (11:01)
[2019-11-08] MEDS: CADEXOMER IODINE 40 GM TUBE TP SCH (11:01)
[2019-11-08] MEDS: CLOTRIMAZOLE/BETAMETASONE DIPROPIONATE 15 GM TUBE TP SCH ×2 (11:02→18:53)
[2019-11-08] MEDS: INSULIN GLARGINE, 100 UNIT/ML CARTRIDGE SQ SCH ×2 (11:05→18:53)
[2019-11-08] MEDS: MEROPENEM 1 G in IV NS 0.9% 100 ML IV SCH (11:11)
[2019-11-08 11:31] LABS: ABG BASE EXCESS 4.6 mmol/L; ABG OXYGEN SATURATION 96.3 % (92.0-98.5); ABG PCO2 43.6 mmHg (35.0-45.0); ABG PH 7.444 (7.350-7.450); ABG PO2 94.1 mmHg (75.0-100.0); AaDO2 321.9 mmHg; COHb 0.3 % (0.5-1.5); MetHb 0.9 % (0.0-1.5); O2Hb 95.1 % (94.0-97.0); PEEP,BG 10 cm H2O; SITE, ABG Right Femoral; VT, ABG 400 mL
[2019-11-08] MEDS ORDERED: HYDROCORTISONE SOD SUCCINATE 100 MG/2 ML VIAL IV SCH ×2 (16:00→18:00)
--- NOTE | 2019-11-08 17:19 | NUR ---
RT NOTE: PATIENT RECEIVED ORALLY INTUBATED WITH 7.5 ETT SECURED AT 22CM MID LIP LINE ON MECHANICAL VENT. ALARMS VERIFIED AND AUDIBLE. VENT PLUGGED INTO RED OUTLET. AMBU BAG AT [facility].
--- NOTE | 2019-11-08 19:57 | NUR ---
ORTHODONTIC TECHNICIAN ASSISTANT. INITIAL ASSESSMENT. RECEIVED THE PT REST ON THE BED. ORALLY INTUBATED. SEDATED WITH DIPRIVAN, ETT 7,5,LIP 22,AC 18FIO2 65%PEEP 10,TV 400, SAT 99%. VESSEL SLAGMAN SHOWING NSR, IV LT UPPER ARM PICC LINE DIPRIVAN 25MCG/KG/MIN.LR 50ML/HFC PATENT. HOB ELEVATED,.OGT INTACT.OSMOLITE1.2 45ML/H. WILL CONTINUE TO MONITOR VITALS.
[2019-11-09] VITALS (32 sets, daily range): BP systolic 96–132; BP diastolic 45–70
[2019-11-09] MEDS: MEROPENEM 1 G in IV NS 0.9% 100 ML IV SCH (00:33)
[2019-11-09] MEDS: PROPOFOL 10MG/ML 50ML 50 ML IV PRN ×6 (00:33→21:57)
[2019-11-09] MEDS: IV LR 1000 ML 1,000 ML IV PRN ×2 (00:41→19:55)
[2019-11-09] MEDS: OSMOLITE 1.2 CAL 1,000 ML LIQUID GT PRN (02:00)
[2019-11-09] MEDS: INSULIN REGULAR, HUMAN 100 UNIT/ML 3 ML VIAL SQ PRN ×4 (03:36→23:56)
[2019-11-09 04:47] LABS: BASOPHILS % (AUTO) 0.3 % (0.0-2.0); HEMATOCRIT 27 % (33-45); LYMPHOCYTES # (AUTO) 0.6 /CMM (0.8-4.8); LYMPHOCYTES % (AUTO) 12.5 % (20.0-44.0); MEAN CORPUSCULAR HGB CONC 33 g/dl (31.0-36.0); MEAN CORPUSCULAR VOLUME 87 fL (82-100); MONOCYTES # (AUTO) 0.1 /CMM (0.1-1.30); MONOCYTES % (AUTO) 2.5 % (2.0-12.0); NEUTROPHILS # (AUTO) 3.8 /CMM (1.8-8.9); NEUTROPHILS % (AUTO) 84.7 % (43.0-81.0); PLATELET COUNT (AUTO) 142 /CMM (150-450); RED BLOOD CELL COUNT(AUTO) 3.13 MIL/uL (4.0-5.2); WHITE BLOOD COUNT (AUTO) 4.5 K/uL (4.3-11.0)
[2019-11-09 05:01] LABS: BILIRUBIN,TOTAL 0.3 mg/dL (0.2-1.0); CALCIUM, SERUM 7.6 mg/dL (8.5-10.1); CREATININE 1.4 mg/dL (0.6-1.3); POTASSIUM 4.5 mmol/L (3.5-5.1); TOTAL PROTEIN, SERUM 4.7 g/dL (6.4-8.2)
[2019-11-09 05:15] LABS: ALBUMIN 1.4 g/dL (3.4-5.0)
[2019-11-09] MEDS: BLOOD SUGAR DIAGNOSTIC 1 EACH STRIP IN SCH ×5 (05:58→23:55)
--- NOTE | 2019-11-09 05:58 | NUR ---
horticultural specialty grower inside. accu check was last done at 0200
--- NOTE | 2019-11-09 06:01 | NUR ---
horticultural farm manager.during night no changes. remaining same vent setting tolerated well. sat 99%.patient monitor showing nsr. diprivan 25mcg/kg/min hob elevated. wound dressing done.remaining same ivfs running. no changes. fc patent. afebrile.arcenio upper and lower extremity cyanosed. turn and reposition q2h. will continue to monitor vitals.
--- NOTE | 2019-11-09 06:24 | NUR ---
agricultural produce sorter. 0229. blood sugar is not correct. diluted sample. .test result is 188 is correct result
[2019-11-09] MEDS: HYDROCORTISONE SOD SUCCINATE 100 MG/2 ML VIAL IV SCH (08:58)
[2019-11-09] MEDS: ASPIRIN 81 MG TAB.CHEW NG SCH ×2 (08:59→09:00)
[2019-11-09] MEDS: HYDROGEL DRESSING 90 GM TUBE TP SCH (09:00)
[2019-11-09] MEDS: CADEXOMER IODINE 40 GM TUBE TP SCH (09:00)
[2019-11-09] MEDS: CLOTRIMAZOLE/BETAMETASONE DIPROPIONATE 15 GM TUBE TP SCH ×2 (09:01→18:08)
[2019-11-09] MEDS: INSULIN GLARGINE, 100 UNIT/ML CARTRIDGE SQ SCH ×2 (10:35→18:45)
--- NOTE | 2019-11-09 16:33 | NUR ---
RT NOTE: PATIENT RECEIVED ORALLY INTUBATED WITH 7.5 ETT SECURED AT 22CM MID LIP LINE ON MECHANICAL VENT. ALARMS VERIFIED AND AUDIBLE. VENT PLUGGED INTO RED OUTLET. AMBU BAG AT [facility].
--- NOTE | 2019-11-09 19:30 | NUR ---
TRANSPORTATION EQUIPMENT PAINTER INITIAL SHIFT NOTES RECEIVED PATIENT IN BED, EYES CLOSED, SEDATED ON DIPRIVAN DRIP, ORALLY INTUBATED ON MECHANICAL VENT, VENT SETTINGS PRESCRIBED. MANDEEP PICC PATENT AND INTACT, ALL PORTS FLUSHED WITH NS. PATIENT CURRENTLY ON DIPRIVAN DRIP @ 25MCG/KG/MIN. RECTAL TUBE PATENT AND INTACT, DRAINING LIQUID BROWN STOOL. PIERSON CATHETER PATENT AND INTACT, DRAINING YELLOW URINE VIA GRAVITY TO DRAINAGE BAG. OGT PATENT AND INTACT, TUBE FEEDING TOLERATED WELL, NO GASTRIC RESIDUALS AT THIS TIME. BED IN LOWEST AND LOCKED POSITION, HOB KEPT ELEVATED IN SEMI REAVES'S POSITION, ISOLATION PRECAUTIONS OBSERVED. WILL CONTINUE TO MONITOR
--- NOTE | 2019-11-09 20:25 | NUR ---
RT NOTE PT RECEIVED INTUBATED WITH @ 7.5 ET TUBE WITH 22 CM. MOVED ET TUBE TO RIGHT LIP LINE. CUFF CHECKED VIA INSURANCE RISK SURVEYOR. AMBU BAG @ HOB. SX DONE, ET TUBE SECURED AND PATENT. ALARMS ON AND AUDIBLE. VENT PLUGGED TO RED OUTLET. NO DISTRESS NOTED. WILL MONITOR T/O SHIFT. Addendum: 11/09/19 at 2025 by REGIS OCONNELL RT Amended: Links added.
[2019-11-09] MEDS ORDERED: HEPARIN INFUSION/D5W 500 ML IV PRN (22:00)
[2019-11-09] MEDS ORDERED: HEPARIN INFUSION/D5W 500 ML IV ONE (22:28)
--- NOTE | 2019-11-09 23:00 | NUR ---
SOIL TECHNOLOGIST NOTES RECEIVED CALL FROM DR HANNON, WITH ORDER TO RESTART HEPARIN DRIP FOR ACS PROTOCOL, NO BOLUS TO BE GIVEN. READ BACK FOR CLARIFICATION. WRITTEN ORDERS FILLED OUT AND FAXED TO PHARMACY. STAT PTT DRAWN BY LAB, AWAITING RESULT BEFORE STARTING HEPARIN DRIP
[2019-11-09] MEDS: HEPARIN INFUSION/D5W 500 ML IV SCH (23:28)
[2019-11-10] VITALS (23 sets, daily range): BP systolic 92–138; BP diastolic 42–69
--- NOTE | 2019-11-10 | NUR ---
RETAIL FIELD REPRESENTATIVE NOTES FIO2 TITRATED TO 50% BY RT MCALLISTER. WILL MONITOR CLOSELY
[2019-11-10] MEDS: OSMOLITE 1.2 CAL 1,000 ML LIQUID GT PRN (02:02)
[2019-11-10 04:18] LABS: BASOPHILS % (AUTO) 1.1 % (0.0-2.0); EOSINOPHILS % (AUTO) 0.2 % (0.0-6.0); HEMATOCRIT 27 % (33-45); HEMOGLOBIN 8.8 g/dL (11.5-14.8); LYMPHOCYTES # (AUTO) 0.7 /CMM (0.8-4.8); MEAN CORPUSCULAR HGB CONC 33 g/dl (31.0-36.0); MEAN CORPUSCULAR VOLUME 87 fL (82-100); MONOCYTES # (AUTO) 0.1 /CMM (0.1-1.30); MONOCYTES % (AUTO) 2.9 % (2.0-12.0); NEUTROPHILS # (AUTO) 2.7 /CMM (1.8-8.9); NEUTROPHILS % (AUTO) 76.8 % (43.0-81.0); PLATELET COUNT (AUTO) 132 /CMM (150-450); RED BLOOD CELL COUNT(AUTO) 3.03 MIL/uL (4.0-5.2); WHITE BLOOD COUNT (AUTO) 3.5 K/uL (4.3-11.0)
[2019-11-10 04:39] LABS: ALBUMIN 1.5 g/dL (3.4-5.0); BILIRUBIN,TOTAL 0.3 mg/dL (0.2-1.0); CALCIUM, SERUM 7.9 mg/dL (8.5-10.1); CREATININE 1.2 mg/dL (0.6-1.3); POTASSIUM 4.4 mmol/L (3.5-5.1); TOTAL PROTEIN, SERUM 4.8 g/dL (6.4-8.2)
--- NOTE | 2019-11-10 05:00 | NUR ---
BALLISTICS EXPERT FORENSIC NOTES DIPRIVAN DRIP TITRATED OFF. PATIENT RESTING IN BED, AWAKE, NOT IN ANY ACUTE DISTRESS. NO TACHYPNEA OR TACHYCARDIA NOTED, PATIENT APPEARS COMFORTABLE. WILL CONTINUE TO CLOSELY MONITOR
[2019-11-10] MEDS: BLOOD SUGAR DIAGNOSTIC 1 EACH STRIP IN SCH ×3 (06:16→16:58)
--- NOTE | 2019-11-10 07:00 | NUR ---
ALUM OPERATOR CLOSING NOTES PATIENT RESTING IN BED. PATIENT IS MORE AWAKE, TRACKING, BUT UNABLE TO PURPOSEFULLY COMMUNICATE WITH STAFF, ONLY SOMETIMES PARTIALLY NODDING YES/NO Addendum: 11/10/19 at 0718 by ANGELA GILMORE RN PATIENT REMAINS ORALLY INTUBATED ON MECHANICAL VENTILATION. WILL ENDORSE THE PATIENT TO THE AM SHIFT NURSE FOR CONTINUITY OF CARE
[2019-11-10 07:49] LABS: ABG BASE EXCESS 7.3 mmol/L; ABG OXYGEN SATURATION 91.9 % (92.0-98.5); ABG PCO2 47.4 mmHg (35.0-45.0); ABG PO2 70.4 mmHg (75.0-100.0); AaDO2 232.8 mmHg; COHb 0.3 % (0.5-1.5); MetHb 0.4 % (0.0-1.5); O2Hb 91.3 % (94.0-97.0); PEEP,BG 10 cm H2O; SITE, ABG Right Femoral; VENT MODE, BG AC 18 400; VT, ABG 400 mL
[2019-11-10] MEDS: HYDROCORTISONE SOD SUCCINATE 100 MG/2 ML VIAL IV SCH (08:42)
[2019-11-10] MEDS: HYDROGEL DRESSING 90 GM TUBE TP SCH (08:42)
[2019-11-10] MEDS: CADEXOMER IODINE 40 GM TUBE TP SCH (08:43)
[2019-11-10] MEDS: CLOTRIMAZOLE/BETAMETASONE DIPROPIONATE 15 GM TUBE TP SCH ×2 (08:43→16:56)
[2019-11-10] MEDS: INSULIN GLARGINE, 100 UNIT/ML CARTRIDGE SQ SCH ×2 (09:14→16:57)
[2019-11-10] MEDS ORDERED: HEPARIN SODIUM, PORCINE 5000 UNITS/1 ML VIAL IV ONE (09:30)
[2019-11-10] MEDS ORDERED: HEPARIN SODIUM,PORCINE/PF 50 UNIT/5 ML DISP.SYRIN IV ONE (09:30)
--- NOTE | 2019-11-10 10:36 | NUR ---
RT NOTE: PATIENT RECEIVED ORALLY INTUBATED WITH 7.5 ETT SECURED AT 22 CM MID LIP LINE ON MECHANICAL VENT. ALARMS VERIFIED AND AUDIBLE. VENT PLUGGED INTO RED OUTLET. AMBU BAG AT [facility].
[2019-11-10] MEDS: INSULIN REGULAR, HUMAN 100 UNIT/ML 3 ML VIAL SQ PRN ×2 (12:40→16:58)
--- NOTE | 2019-11-10 13:48 | NUR ---
RN NOTE 0715: Received patient awake, passive. Tracks voice but hard to communicate at this time. With ETT to vent, no respiratory distress noted at this time. Off sedation since 0500 per previous shift. Will monitor need of sedation. on 50% +10. OGT intact, TF tolerated, kept HOB elevated. Aguilar cath intact, noted with yellow urine with sediments. With Rectal tube intact, noted with brown loose stool. On iso prec for Covid, maintained and observed. MANDEEP PICC intact. LR @ 50 and Heparin @ 1100, awaiting PTT result for Heparin adjustment. 0900: Adjusted Heparin to 1300 U/hr, given bolus as ordered. S/E by Dr. Pearson, keep same setting for now. Aware for the BUE and BLE discoloration and fingers are black. 0915: S/E by Dr. Mcfarland, no new order at this time. 1330: No any significant changes. Kept clean, and dry. Awake, Looks at you but passive, unable to move extremities. Will continue to monitor.
[2019-11-10] MEDS: IV D5W 1,000 ML IV PRN (14:00)
[2019-11-10] MEDS: HEPARIN INFUSION/D5W 500 ML IV SCH (19:04)
--- NOTE | 2019-11-10 19:05 | NUR ---
RN OPENING NOTES: PATIENT IN BED, RESPONSIVE TO TOUCH AND VERBAL STIMULI WITH EYES OPEN. PATIENT INTUBATED AND TOLERATING CURRENT VENT SETTINGS. NO S/S OF PAIN. NO FACIAL GRIMACING. OGT INTACT, TOLERATING TUBE FEEDING, HOB ELEVATED. PIERSON CATH INTACT AND PATENT, DRAINING YELLOW URINE WITH SEDIMENTS. RECTAL TUBE IN PLACE DRAINING LIQUID BROWN STOOLS. REMAINS ON CONTACT ISOLATION FOR COVID+. HEPARIN ONGOING AT 1300 UNITS; AWAITING FOR PTT RESULT. SAFETY PRECAUTIONS IMPLEMENTED. BED LOCKED, LOW POSITION, SIDE RAILS X 2 UP. WILL CONT. TO MONITOR.
--- NOTE | 2019-11-10 20:05 | NUR ---
MENDOZA NOTE: LAB CALLED AND RELAYED PTT 174.6. HEPARIN HELD X 60 MINS AND WILL DECREASE BY 200 UNITS PER PROTOCOL. NO BLEEDING NOTED. WILL CONT. TO MONITOR. Addendum: 11/10/19 at 2052 by SUSAN PADILLA RN WITNESSED AND COSIGNED BY JORDAN DONALDSON. Addendum: 11/11/19 at 0132 by SUSAN PADILLA RN OMER GARCIA MADE AWARE.
--- NOTE | 2019-11-10 20:05 | NUR ---
PT RECEIVED ORALLY INTUBATED WITH 7.5 ET TUBE SECURED @ 22 CM LIP LINE ON VENT WITH NOTED SETTINGS. CUFF CHECKED VIA PERSONNEL SECURITY SPECIALIST. AMBU BAG @ HOB. SX DONE, ET TUBE SECURED AND PATENT. ALARMS ON AND AUDIBLE. VENT PLUGGED TO RED OUTLET. NO RESPIRATORY DISTRESS NOTED AT THIS TIME. WILL CONTINUE TO MONITOR THE PT T/O SHIFT
[2019-11-10] MEDS: GLUCERNA 1.2 1,000 ML BOTTLE NG PRN (20:26)
[2019-11-11] VITALS (24 sets, daily range): BP systolic 100–141; BP diastolic 48–70
[2019-11-11] MEDS: BLOOD SUGAR DIAGNOSTIC 1 EACH STRIP IN SCH ×4 (00:42→17:30)
[2019-11-11 03:49] LABS: BASOPHILS % (AUTO) 1.2 % (0.0-2.0); HEMATOCRIT 28 % (33-45); LYMPHOCYTES # (AUTO) 0.7 /CMM (0.8-4.8); LYMPHOCYTES % (AUTO) 16.6 % (20.0-44.0); MEAN CORPUSCULAR HGB CONC 32 g/dl (31.0-36.0); MEAN CORPUSCULAR VOLUME 88 fL (82-100); MONOCYTES # (AUTO) 0.1 /CMM (0.1-1.30); NEUTROPHILS # (AUTO) 3.2 /CMM (1.8-8.9); NEUTROPHILS % (AUTO) 80.2 % (43.0-81.0); PLATELET COUNT (AUTO) 147 /CMM (150-450); RED BLOOD CELL COUNT(AUTO) 3.16 MIL/uL (4.0-5.2); WHITE BLOOD COUNT (AUTO) 3.9 K/uL (4.3-11.0)
[2019-11-11 04:02] LABS: ALBUMIN 1.6 g/dL (3.4-5.0); BILIRUBIN,TOTAL 0.3 mg/dL (0.2-1.0); CALCIUM, SERUM 7.9 mg/dL (8.5-10.1); CREATININE 1.1 mg/dL (0.6-1.3); POTASSIUM 4.7 mmol/L (3.5-5.1); TOTAL PROTEIN, SERUM 5.2 g/dL (6.4-8.2)
[2019-11-11] MEDS: IV D5W 1,000 ML IV PRN (06:18)
--- NOTE | 2019-11-11 06:52 | NUR ---
RN CLOSING NOTE: PATIENT IN BED, EYES OPEN, INTUBATED AND STILL TOLERATING CURRENT VENT SETTINGS. NO RESPIRATORY DISTRESS. O2 SAT >95%. HEPARIN STILL ONGOING NOW AT 950 UNITS. ADJUSTED DOSE PER PROTOCOL. NEXT PTT AT 1040. NO BLEEDING NOTED AT THIS TIME. NO ACUTE DISTRESS DURING SHIFT. ENDORSE TO AM SHIFT NURSE FOR CONTINUITY OF CARE.
[2019-11-11] MEDS: CADEXOMER IODINE 40 GM TUBE TP SCH (09:07)
[2019-11-11] MEDS: HYDROCORTISONE SOD SUCCINATE 100 MG/2 ML VIAL IV SCH (09:07)
[2019-11-11] MEDS: HYDROGEL DRESSING 90 GM TUBE TP SCH (09:07)
[2019-11-11] MEDS: CLOTRIMAZOLE/BETAMETASONE DIPROPIONATE 15 GM TUBE TP SCH ×2 (09:07→17:45)
[2019-11-11] MEDS: INSULIN GLARGINE, 100 UNIT/ML CARTRIDGE SQ SCH ×2 (09:12→17:44)
--- NOTE | 2019-11-11 09:55 | NUR ---
RN NOTE 0715: Received patient awake, passive. Tracks voice but hard to communicate at this time. With ETT to vent, no respiratory distress noted at this time. Off sedation, will monitor need of sedation. on FIO2 50% PEEP +10. OGT intact, TF tolerated, kept HOB elevated. Aguilar cath intact, noted with yellow urine with sediments. With Rectal tube intact, noted with brown loose stool. On iso prec for Covid, maintained and observed. MANDEEP PICC intact. D5W @ 50 and Heparin @ 950u/hr. 0845: S/E by Dr. Mcfarland, no new order at this time. 0900: S/E by Dr. Pearson, no new order at this time. 0930: Obtained order to DC Heparin drip and change to Lovenox SQ q24, verified with pharmacy. 0955: No any significant changes noted at this time, will continue to monitor.
[2019-11-11] MEDS: ENOXAPARIN SODIUM 40 MG/0.4 ML DISP.SYRIN SQ SCH (11:47)
--- NOTE | 2019-11-11 15:14 | NUR ---
RN NOTE Spoke with Donato, daughter and made aware re: patient's condition. Made her aware for skin deterioration, BUE and BLE discoloration and lack of blood flow. Sacral deterioration as well, family aware.
[2019-11-11] MEDS: GLUCERNA 1.2 1,000 ML BOTTLE NG PRN (15:25)
[2019-11-11] MEDS: INSULIN REGULAR, HUMAN 100 UNIT/ML 3 ML VIAL SQ PRN (17:31)
--- NOTE | 2019-11-11 20:02 | NUR ---
RT NOTE PT RECEIVED INTUBATED WITH @ 7.5 ET TUBE WITH 22 CM. CUFF CHECKED VIA MINISTER HELPER. AMBU BAG @ HOB. SX DONE, ET TUBE SECURED AND PATENT. ALARMS ON AND AUDIBLE. VENT PLUGGED TO RED OUTLET. NO DISTRESS NOTED. WILL MONITOR T/O SHIFT. Addendum: 11/11/19 at 2001 by HUBERT JOHNSON RT Amended: Links added.
--- NOTE | 2019-11-11 20:46 | NUR ---
RT NOTE SX'ED BLOODY SECRETIONS, THIN, MINIMAL, FOUND BLOOD ON LIPS. MOVED ET TUBE TO MID-LINE Addendum: 11/11/19 at 2047 by HUBERT JOHNSON RT Amended: Links added.
[2019-11-12] VITALS (24 sets, daily range): BP systolic 115–144; BP diastolic 58–74
[2019-11-12] MEDS: IV D5W 1,000 ML IV PRN ×2 (00:45→20:40)
[2019-11-12] MEDS: BLOOD SUGAR DIAGNOSTIC 1 EACH STRIP IN SCH ×4 (00:45→17:13)
--- NOTE | 2019-11-12 06:33 | NUR ---
INSURANCE AND BENEFITS CLERK VP HUMAN RESOURCES UNABLE TO DRAW PT; PER PABLO HE WILL SEND DAY SHIFT VP [employer].
--- NOTE | 2019-11-12 06:59 | NUR ---
TUBE PUSHER CALLED LAB FOR BLOOD DRAW IN 258; SAID PLEASE GIVE US A FEW MINUTES.
[2019-11-12 08:28] LABS: ALBUMIN 1.6 g/dL (3.4-5.0); BILIRUBIN,TOTAL 0.2 mg/dL (0.2-1.0); CALCIUM, SERUM 8.3 mg/dL (8.5-10.1); POTASSIUM 4.8 mmol/L (3.5-5.1); TOTAL PROTEIN, SERUM 5.1 g/dL (6.4-8.2)
[2019-11-12] MEDS: HYDROCORTISONE SOD SUCCINATE 100 MG/2 ML VIAL IV SCH (09:29)
[2019-11-12] MEDS: HYDROGEL DRESSING 90 GM TUBE TP SCH (09:29)
[2019-11-12] MEDS: CADEXOMER IODINE 40 GM TUBE TP SCH (09:29)
[2019-11-12] MEDS: CLOTRIMAZOLE/BETAMETASONE DIPROPIONATE 15 GM TUBE TP SCH ×2 (09:29→17:12)
[2019-11-12] MEDS: INSULIN GLARGINE, 100 UNIT/ML CARTRIDGE SQ SCH ×2 (09:30→17:12)
--- NOTE | 2019-11-12 09:48 | NUR ---
RT NOTE: PATIENT RECEIVED ORALLY INTUBATED WITH 7.5 ETT SECURED AT 22 CM MID LIP LINE ON MECHANICAL VENT. ALARMS VERIFIED AND AUDIBLE. VENT PLUGGED INTO RED OUTLET. AMBU BAG AT [facility].
[2019-11-12 09:53] LABS: BASOPHILS % (AUTO) 1.1 % (0.0-2.0); EOSINOPHILS % (AUTO) 0.2 % (0.0-6.0); HEMATOCRIT 25 % (33-45); HEMOGLOBIN 8.1 g/dL (11.5-14.8); LYMPHOCYTES # (AUTO) 0.5 /CMM (0.8-4.8); LYMPHOCYTES % (AUTO) 14.6 % (20.0-44.0); MEAN CORPUSCULAR HGB CONC 32 g/dl (31.0-36.0); MEAN CORPUSCULAR VOLUME 91 fL (82-100); MONOCYTES % (AUTO) 0.9 % (2.0-12.0); NEUTROPHILS # (AUTO) 2.9 /CMM (1.8-8.9); NEUTROPHILS % (AUTO) 83.2 % (43.0-81.0); PLATELET COUNT (AUTO) 136 /CMM (150-450); WHITE BLOOD COUNT (AUTO) 3.4 K/uL (4.3-11.0)
[2019-11-12] MEDS: GLUCERNA 1.2 1,000 ML BOTTLE NG PRN (10:36)
--- NOTE | 2019-11-12 11:13 | NUR ---
RT NOTE: ATTEMPTED TO OBTAIN ABG SAMPLE AT RIGHT FEMORAL SITE WITH NO SUCCESS. AWARE AND ABG ORDER WAS CANCELLED FOR TODAY.
[2019-11-12] MEDS: ENOXAPARIN SODIUM 40 MG/0.4 ML DISP.SYRIN SQ SCH (12:20)
[2019-11-12 13:29] LABS: BAND % (MANUAL) 5 % (0.0-5.0); LYMPHOCYTES % (MANUAL) 11 % (16-48); MONOCYTES % (MANUAL) 3 % (0-11.0); NEUTROPHILS % (MANUAL) 81 (42-76)
--- NOTE | 2019-11-12 19:15 | NUR ---
RN OPENING NOTES RECEIVED PATIENT IN BED, ALERT, INTUBATED AND TOLERATING CURRENT VENT SETTINGS. NO SOB OR RESPIRATORY DISTRESS. NO DISTRESS NOTED. O2 SAT 96% AT THE MOMENT. IV SITE MANDEEP PICC LINE, FLUSHING AND INTACT, IVF RUNNING ORDERED, TOLERATING WELL. OGT FEEDING RUNNING AT 55ML/HR, TOLERATING WELL, NO RESIDUAL NOTED. BOTH PIERSON CATH AND RECTAL TUBE INTACT AND DRAINING WELL. HOB ELEVATED. SAFETY MEASURES AND ISOLATION PRECAUTIONS MAINTAINED. WILL CONT TO MONITOR CLOSELY.
--- NOTE | 2019-11-12 21:29 | NUR ---
ENDORSED TO MENDOZA CARLIN FOR SABINO.
--- NOTE | 2019-11-12 21:30 | NUR ---
Received report from Tata DONALDSON
--- NOTE | 2019-11-12 22:00 | NUR ---
RECEIVED PATIENT BACK FROM MENDOZA CARLIN.
[2019-11-13] VITALS (24 sets, daily range): BP systolic 106–140; BP diastolic 59–89
[2019-11-13] MEDS: BLOOD SUGAR DIAGNOSTIC 1 EACH STRIP IN SCH ×4 (00:01→18:17)
--- NOTE | 2019-11-13 00:06 | NUR ---
RN NOTES ACCUCHECK DONE ON THE RIGHT THUMB BLOOD SUGAR 23, RECHECKED ON LEFT THUMB BLOOD SUGAR 22, HOWEVER PATIENT'S UPPER EXTREMITIES ARE VERY EDEMATOUS. PATIENT AWAKE, ALERT AND OPENS EYES. RECHECKED BLOOD SUGAR ON RIGHT EAR, BLOOD SUGAR 69. NO JUICE AVAILABLE ON THE UNIT AT THE MOMENT, PATIENT GIVEN WATER WITH SUGAR VIA OGT INSTEAD. CHARGE NURSE MADE AWARE AND STATED NO NEED TO RECHECK BLOOD SUGAR. WILL CONT TO MONITOR PT CLOSELY.
[2019-11-13] MEDS: GLUCERNA 1.2 1,000 ML BOTTLE NG PRN ×2 (04:45→21:34)
--- NOTE | 2019-11-13 06:46 | NUR ---
RN CLOSING NOTES PATIENT SLEEPING IN BED, BUT EASY TO AROUSE VIA TOUCH. NO ACUTE CHANGES THROUGHOUTS SHIFT. INTUBATED AND TOLERATING CURRENT VENT SETTINGS. NO SOB OR RESPIRATORY DISTRESS. O2 SAT 98% AT THE MOMENT. IV SITE MANDEEP PICC LINE, FLUSHING AND INTACT, IVF RUNNING ORDERED, TOLERATING WELL. OGT FEEDING RUNNING AT 55ML/HR, TOLERATING WELL, NO RESIDUAL NOTED. BOTH PIERSON CATH AND RECTAL TUBE INTACT AND DRAINING WELL. HOB ELEVATED. SAFETY MEASURES AND ISOLATION PRECAUTIONS MAINTAINED. WILL CONT TO MONITOR CLOSELY. WILL ENDORSE TO AM RN FOR SABINO.
--- NOTE | 2019-11-13 07:49 | NUR ---
RN OPENING NOTE Received patient asleep in bed. Easily awaken. No signs of distress. Patient on a FC clear yellow urine. On Glucerna feeding 55ml/hr via OGT. No co pain or discomfort. Has multiple dressings intact. Safety measure implemented. Call light within reach. Bed locked and on lowest position. Siderails up x2. Will cont to monitor.
[2019-11-13] MEDS ORDERED: BUMETANIDE INJ 8 MG in IV NS 0.9% 48 ML IV ONE (08:00)
[2019-11-13 08:51] LABS: BASOPHILS % (AUTO) 1.1 % (0.0-2.0); EOSINOPHILS % (AUTO) 0.1 % (0.0-6.0); HEMATOCRIT 25 % (33-45); HEMOGLOBIN 8.2 g/dL (11.5-14.8); LYMPHOCYTES # (AUTO) 0.4 /CMM (0.8-4.8); LYMPHOCYTES % (AUTO) 13.5 % (20.0-44.0); MEAN CORPUSCULAR HGB CONC 33 g/dl (31.0-36.0); MEAN CORPUSCULAR VOLUME 90 fL (82-100); MONOCYTES # (AUTO) 0.1 /CMM (0.1-1.30); MONOCYTES % (AUTO) 2.7 % (2.0-12.0); NEUTROPHILS # (AUTO) 2.6 /CMM (1.8-8.9); NEUTROPHILS % (AUTO) 82.6 % (43.0-81.0); PLATELET COUNT (AUTO) 152 /CMM (150-450); RED BLOOD CELL COUNT(AUTO) 2.75 MIL/uL (4.0-5.2); WHITE BLOOD COUNT (AUTO) 3.2 K/uL (4.3-11.0)
[2019-11-13] MEDS: HYDROCORTISONE SOD SUCCINATE 100 MG/2 ML VIAL IV SCH (09:00)
[2019-11-13 09:01] LABS: CALCIUM, SERUM 8.3 mg/dL (8.5-10.1); CREATININE 0.9 mg/dL (0.6-1.3); POTASSIUM 4.6 mmol/L (3.5-5.1)
[2019-11-13] MEDS: HYDROGEL DRESSING 90 GM TUBE TP SCH (09:01)
[2019-11-13] MEDS: CADEXOMER IODINE 40 GM TUBE TP SCH (09:02)
[2019-11-13] MEDS: CLOTRIMAZOLE/BETAMETASONE DIPROPIONATE 15 GM TUBE TP SCH ×2 (09:02→17:26)
[2019-11-13] MEDS: INSULIN GLARGINE, 100 UNIT/ML CARTRIDGE SQ SCH ×2 (09:22→17:26)
[2019-11-13 10:25] LABS: BAND % (MANUAL) 3 % (0.0-5.0); LYMPHOCYTES % (MANUAL) 12 % (16-48); MONOCYTES % (MANUAL) 3 % (0-11.0); NEUTROPHILS % (MANUAL) 82 (42-76)
[2019-11-13] MEDS: ENOXAPARIN SODIUM 40 MG/0.4 ML DISP.SYRIN SQ SCH (10:41)
--- NOTE | 2019-11-13 10:50 | NUR ---
RT NOTE: PATIENT RECEIVED ORALLY INTUBATED WITH 7.5 ETT SECURED AT 22CM MID LIP LINE ON MECHANICAL VENT. @0735 PATIENT WAS CHANGED TO SIMV 4,VT 400, FI02 50%,PS=15, PEEP +5 PER 'S ORDER. @1000-I ATTEMPTED TO OBTAIN ABG SAMPLE AT RIGHT FEMORAL SITE BUT WAS NOT SUCCESSFUL. AWARE AND ABG ORDER WAS CANCELLED TODAY. PATIENT CONTINUES ON SIMV WITH NO DISTRESS. WILL CONTINUE TO MONITOR.
--- NOTE | 2019-11-13 15:04 | NUR ---
RT NOTE: ALERT PATIENT CONTINUES TO TOLERATE SIMV MODE WELL. SUCTIONED AND LAVAGED THICK BLOODY SECRETIONS. VENT PLUGGED INTO RED OUTLET. AMBU BAG AT [facility].
[2019-11-13] MEDS ORDERED: HEPARIN INFUSION/D5W 500 ML IV PRN (17:00)
--- NOTE | 2019-11-13 17:30 | NUR ---
RN NOTE Dr. Leos called to get status of the patient. She said she will talk to Dr. Mcfarland about cont heparin drip.
--- NOTE | 2019-11-13 19:11 | NUR ---
RN CLOSING NOTE Patient in bed awake. On vent settings AC 18 SIMV 4 TV 400 Fio2 50% PEEP 5. Tolerating well. ST 110. Cont on Glucerna 1.2 @ 55ml/hr OGT tolerating well. MANDEEP PICC line in place and patent. FC in place draining clear yellow urine. Multiple dressing in place. Kept clean and comfortable. Kept clean and dry. All due meds given. All needs met. Cont to monitor closely. Keep SIMV as tolerated as ordered by MD. No co pain or discomfort. Vital signs within normal limits. Safety measures implemented. Siderails up x2. Bed locked and on lowest position. . Will endorse to shift leader nurse for peyman.
--- NOTE | 2019-11-13 19:30 | NUR ---
BUSINESS OFFICE REPRESENTATIVE OPENING NOTE RECEIVED PATIENT IN BED AWAKE, ON VENT SETTING, TOLERATING WENT SETTING WELL, NO SOB OR ACUTE DISTRESS NOTED AT THIS TIME. SR/ ST ON BED SIDE MONITOR 80 TO 110. NG TUBE FEEDING AT 55 ML/HR TOLERATING WELL/, MANDEEP PICC LINE FLUSHED ANT INTACT NO INFILTRATION NOTED. PIERSON CAT DRAINING TO GRAVITY YELLOW/CLEAR URINE. PATIENT IS SIMV PER MDs ORDER ,TOLERATING WELL. SAFETY MEASURES IMPLEMENTED, BED IN LOW/LOCJED POSITION WILL CONTINUE TO MONITOR CLOSELY.
[2019-11-14] VITALS (25 sets, daily range): BP systolic 95–133; BP diastolic 48–79
[2019-11-14] MEDS: BLOOD SUGAR DIAGNOSTIC 1 EACH STRIP IN SCH ×5 (00:35→23:58)
[2019-11-14] MEDS: DEXTROSE 50%-WATER 50 ML DISP.SYRIN IV PRN ×2 (00:35→09:00)
--- NOTE | 2019-11-14 00:55 | NUR ---
PATIENTS BS WAS 31 @0029 REPEATED THE TEST THE RESULT WAS 48 @0033, CHARGE NURSE NOTIFIED AND 50% DEXTROSE GIVEN @0035... VS WNL. NO SOB OR ACUTE DISTRESS NOTED. RECHECKED THE BS AT 0050. THE RESULT WAS 151. WILL CONTINUE TO MONITOR
[2019-11-14 04:38] LABS: BASOPHILS # (AUTO) 0.1 /CMM (0.0-0.2); HEMATOCRIT 24 % (33-45); HEMOGLOBIN 7.9 g/dL (11.5-14.8); LYMPHOCYTES # (AUTO) 0.4 /CMM (0.8-4.8); LYMPHOCYTES % (AUTO) 10.2 % (20.0-44.0); MEAN CORPUSCULAR HGB CONC 33 g/dl (31.0-36.0); MEAN CORPUSCULAR VOLUME 90 fL (82-100); MONOCYTES # (AUTO) 0.1 /CMM (0.1-1.30); MONOCYTES % (AUTO) 4.1 % (2.0-12.0); NEUTROPHILS # (AUTO) 2.9 /CMM (1.8-8.9); NEUTROPHILS % (AUTO) 82.7 % (43.0-81.0); PLATELET COUNT (AUTO) 155 /CMM (150-450); RED BLOOD CELL COUNT(AUTO) 2.67 MIL/uL (4.0-5.2); WHITE BLOOD COUNT (AUTO) 3.5 K/uL (4.3-11.0)
[2019-11-14 04:56] LABS: CALCIUM, SERUM 8.2 mg/dL (8.5-10.1); POTASSIUM 3.8 mmol/L (3.5-5.1)
--- NOTE | 2019-11-14 05:42 | NUR ---
RT NOTE Patient received orally intubated on mechanical ventilation on noted vent settings. Patient tolerated SIMV settings throughout the shift. Alarms are set and audible. PRN suctioning was done. Will continue to monitor patient. Addendum: 11/14/19 at 0547 by KATIANA MCGILL RT Amended: Links added.
--- NOTE | 2019-11-14 06:30 | NUR ---
PATIENTS BS 52, ORANGE JUICE WAS GIVEN VIA NG TUNE . WILL RECHECK FOR ANY CHANGES. VS STABLE. NO SOB OR ANY ACUTE DISTRESS NOTED AT THIS TIME.
--- NOTE | 2019-11-14 07:36 | NUR ---
LINE OUT WORKER CLOSING NOTE PATIENT IN BED AWAKE, ON VENT SETTING, TOLERATING WENT SETTING WELL, NO SOB OR ACUTE DISTRESS NOTED AT THIS TIME. SR/ ST ON BED SIDE MONITOR 80 TO 110. NG TUBE FEEDING AT 55 ML/HR TOLERATING WELL/, MANDEEP PICC LINE FLUSHED ANT INTACT NO INFILTRATION NOTED. PIERSON CAT DRAINING TO GRAVITY YELLOW/CLEAR URINE. PATIENT IS SIMV PER ORDER ,TOLERATING WELL. SAFETY MEASURES IMPLEMENTED, BED IN LOW/LOCKED POSITION. ENDORSED THE PATIENT TO AM RN FOR SABINO.
[2019-11-14] MEDS: HYDROGEL DRESSING 90 GM TUBE TP SCH (07:59)
[2019-11-14] MEDS: HYDROCORTISONE SOD SUCCINATE 100 MG/2 ML VIAL IV SCH (07:59)
[2019-11-14] MEDS: INSULIN GLARGINE, 100 UNIT/ML CARTRIDGE SQ SCH ×2 (07:59→17:23)
[2019-11-14] MEDS: CLOTRIMAZOLE/BETAMETASONE DIPROPIONATE 15 GM TUBE TP SCH ×2 (08:00→17:20)
[2019-11-14] MEDS: CADEXOMER IODINE 40 GM TUBE TP SCH (08:00)
[2019-11-14 09:09] LABS: ABG OXYGEN SATURATION 77.3 % (92.0-98.5); ABG PCO2 39.9 mmHg (35.0-45.0); ABG PH 7.586 (7.350-7.450); ABG PO2 36.5 mmHg (75.0-100.0); COHb 1.2 % (0.5-1.5); MetHb 1.1 % (0.0-1.5); O2Hb 75.5 % (94.0-97.0); SITE, ABG Other
--- NOTE | 2019-11-14 19:39 | NUR ---
INSOLE ROUNDER OPENING NOTE, RECEIVED PATIENT IN BED AWAKE, COVID (+), ON VENT SETTING, TOLERATING VENT SETTING WELL, NO SOB OR ACUTE DISTRESS NOTED AT THIS TIME. ST ON BEDSIDE MONITOR 114. ORAL TUBE FEEDING GLUCERNA 1.2 AT 55 ML/HR TOLERATING WELL/, MANDEEP PICC LINE FLUSHED AND INTACT NO INFILTRATION NOTED. PIERSON CAT DRAINING TO GRAVITY YELLOW/CLEAR URINE. RECTAL TUBE INTACT AND NOTED DRAINING BROWN LIQUID STOOL. PATIENT IS SIMV PER MD ORDER ,TOLERATING WELL. SAFETY MEASURES IMPLEMENTED, BED IN LOW/LOCKED POSITION. WILL CONTINUE TO MONITOR THE PATIENT.
[2019-11-15] VITALS (25 sets, daily range): BP systolic 78–140; BP diastolic 42–74
--- NOTE | 2019-11-15 | NUR ---
SEMICONDUCTOR DIES LOADER OPENING NOTE, RECEIVED PATIENT IN BED AWAKE, COVID (+), ON VENT SETTING, SETTING IS CPAP MODE, TOLERATING THE SETTING WELL, NO SOB OR ACUTE DISTRESS NOTED AT THIS TIME. ST ON BEDSIDE MONITOR 106. ORAL TUBE FEEDING GLUCERNA 1.2 AT 55 ML/HR TOLERATING WELL/, MANDEEP PICC LINE FLUSHED AND INTACT NO INFILTRATION NOTED. PIERSON CAT DRAINING TO GRAVITY YELLOW/CLEAR URINE. RECTAL TUBE INTACT AND NOTED DRAINING BROWN LIQUID STOOL. SAFETY MEASURES IMPLEMENTED, BED IN LOW/LOCKED POSITION. WILL CONTINUE TO MONITOR THE PATIENT.
[2019-11-15] MEDS: INSULIN REGULAR, HUMAN 100 UNIT/ML 3 ML VIAL SQ PRN ×4 (00:04→18:00)
[2019-11-15 04:40] LABS: BASOPHILS % (AUTO) 1.2 % (0.0-2.0); EOSINOPHILS % (AUTO) 0.1 % (0.0-6.0); HEMATOCRIT 23 % (33-45); HEMOGLOBIN 7.6 g/dL (11.5-14.8); LYMPHOCYTES # (AUTO) 0.5 /CMM (0.8-4.8); LYMPHOCYTES % (AUTO) 13.9 % (20.0-44.0); MEAN CORPUSCULAR HGB CONC 33 g/dl (31.0-36.0); MEAN CORPUSCULAR VOLUME 91 fL (82-100); MONOCYTES # (AUTO) 0.1 /CMM (0.1-1.30); MONOCYTES % (AUTO) 2.7 % (2.0-12.0); NEUTROPHILS # (AUTO) 2.7 /CMM (1.8-8.9); NEUTROPHILS % (AUTO) 82.1 % (43.0-81.0); PLATELET COUNT (AUTO) 150 /CMM (150-450); RED BLOOD CELL COUNT(AUTO) 2.52 MIL/uL (4.0-5.2); WHITE BLOOD COUNT (AUTO) 3.3 K/uL (4.3-11.0)
[2019-11-15 04:43] LABS: CREATININE 1.1 mg/dL (0.6-1.3); POTASSIUM 4.2 mmol/L (3.5-5.1)
[2019-11-15] MEDS: BLOOD SUGAR DIAGNOSTIC 1 EACH STRIP IN SCH ×3 (06:32→17:41)
--- NOTE | 2019-11-15 07:26 | NUR ---
MOTHER REPAIRER CLOSING NOTES, PATIENT IN BED AWAKE, COVID (+), ON VENT SETTING, TOLERATING VENT SETTING WELL, NO SOB OR ACUTE DISTRESS NOTED AT THIS TIME. ST ON BEDSIDE MONITOR 114. ORAL TUBE FEEDING GLUCERNA 1.2 AT 55 ML/HR TOLERATING WELL/, MANDEEP PICC LINE FLUSHED AND INTACT NO INFILTRATION NOTED. PIERSON CAT DRAINING TO GRAVITY YELLOW/CLEAR URINE. RECTAL TUBE INTACT AND NOTED DRAINING BROWN LIQUID STOOL. PATIENT IS SIMV PER MD ORDER ,TOLERATING WELL. SAFETY MEASURES IMPLEMENTED, BED IN LOW/LOCKED POSITION. ENDORSED THE PATIENT TO AM RN FOR SABINO.
[2019-11-15] MEDS: HYDROCORTISONE SOD SUCCINATE 100 MG/2 ML VIAL IV SCH (08:03)
[2019-11-15] MEDS: INSULIN GLARGINE, 100 UNIT/ML CARTRIDGE SQ SCH ×2 (08:30→17:00)
[2019-11-15] MEDS: CADEXOMER IODINE 40 GM TUBE TP SCH (08:30)
[2019-11-15] MEDS: HYDROGEL DRESSING 90 GM TUBE TP SCH (08:30)
[2019-11-15] MEDS: CLOTRIMAZOLE/BETAMETASONE DIPROPIONATE 15 GM TUBE TP SCH ×2 (08:30→17:00)
[2019-11-15] MEDS: GLUCERNA 1.2 1,000 ML BOTTLE NG PRN (12:24)
[2019-11-15] MEDS: ACETAMINOPHEN 650 MG/SUPP.RECT RC PRN (12:25)
[2019-11-15 21:07] LABS: OCCULT BLOOD STOOL NEGATIVE (NEGATIVE)
[2019-11-16] VITALS (24 sets, daily range): BP systolic 107–145; BP diastolic 45–88
[2019-11-16] MEDS: BLOOD SUGAR DIAGNOSTIC 1 EACH STRIP IN SCH ×4 (00:15→18:59)
[2019-11-16 05:12] LABS: EOSINOPHILS % (AUTO) 0.3 % (0.0-6.0); HEMATOCRIT 24 % (33-45); LYMPHOCYTES # (AUTO) 0.6 /CMM (0.8-4.8); LYMPHOCYTES % (AUTO) 13.8 % (20.0-44.0); MEAN CORPUSCULAR HGB CONC 34 g/dl (31.0-36.0); MEAN CORPUSCULAR VOLUME 91 fL (82-100); MONOCYTES # (AUTO) 0.2 /CMM (0.1-1.30); MONOCYTES % (AUTO) 5.6 % (2.0-12.0); NEUTROPHILS # (AUTO) 3.5 /CMM (1.8-8.9); NEUTROPHILS % (AUTO) 79.3 % (43.0-81.0); PLATELET COUNT (AUTO) 211 /CMM (150-450); RED BLOOD CELL COUNT(AUTO) 2.61 MIL/uL (4.0-5.2); WHITE BLOOD COUNT (AUTO) 4.4 K/uL (4.3-11.0)
[2019-11-16 05:23] LABS: ALBUMIN 1.8 g/dL (3.4-5.0); BILIRUBIN,TOTAL 0.4 mg/dL (0.2-1.0); CALCIUM, SERUM 8.5 mg/dL (8.5-10.1); CREATININE 1.2 mg/dL (0.6-1.3); MAGNESIUM 2.3 mg/dL (1.8-2.4); PHOSPHORUS 4.6 mg/dL (2.5-4.9); POTASSIUM 4.2 mmol/L (3.5-5.1); TOTAL PROTEIN, SERUM 5.8 g/dL (6.4-8.2)
--- NOTE | 2019-11-16 07:17 | NUR ---
PRESETTER OPERATOR CLOSING NOTES, PATIENT IN BED AWAKE, COVID (+), ON VENT SETTING, TOLERATING VENT SETTING WELL, NO SOB OR ACUTE DISTRESS NOTED AT THIS TIME. ST ON BEDSIDE MONITOR 106. ORAL TUBE FEEDING GLUCERNA 1.2 AT 55 ML/HR TOLERATING WELL/, MANDEEP PICC LINE FLUSHED AND INTACT NO INFILTRATION NOTED. PIERSON CAT DRAINING TO GRAVITY YELLOW/CLEAR URINE. RECTAL TUBE INTACT AND NOTED DRAINING BROWN LIQUID STOOL. PATIENT IS SIMV PER MD ORDER ,TOLERATING WELL. SAFETY MEASURES IMPLEMENTED, BED IN LOW/LOCKED POSITION. ENDORSED THE PATIENT TO AM RN FOR SABINO.
[2019-11-16] MEDS: CADEXOMER IODINE 40 GM TUBE TP SCH (08:24)
[2019-11-16] MEDS: CLOTRIMAZOLE/BETAMETASONE DIPROPIONATE 15 GM TUBE TP SCH ×2 (08:24→17:00)
[2019-11-16] MEDS: HYDROCORTISONE SOD SUCCINATE 100 MG/2 ML VIAL IV SCH (08:24)
[2019-11-16] MEDS: HYDROGEL DRESSING 90 GM TUBE TP SCH (08:25)
[2019-11-16] MEDS: INSULIN GLARGINE, 100 UNIT/ML CARTRIDGE SQ SCH ×2 (08:25→17:00)
--- NOTE | 2019-11-16 09:37 | NUR ---
WOUND CARE FOLLOW UP: REVIEWED CHART INCLUDING PHOTO DOCUMENTATION AND SPOKE WITH NURSE. WOUND BED CHANGES NOTED TO SACRAL DEEP TISSUE INJURY AND ALSO PT HAVING WEEPING EDEMA WITH PEELING SKIN TO BILATERAL ARMS. DISCUSSED WITH DR ERIK HUTCHINSON AND NEW ORDERS RECEIVED. DISCUSSED WITH NURSING STAFF. ALL SKIN PROTECTION MEASURES IN PLACE INCLUDING FIRST STEP CIRRUS LOW AIRLOSS MATTRESS.
[2019-11-16] MEDS: ENOXAPARIN SODIUM 40 MG/0.4 ML DISP.SYRIN SQ SCH (11:24)
[2019-11-16] MEDS: GLUCERNA 1.2 1,000 ML BOTTLE NG PRN (12:35)
--- NOTE | 2019-11-16 14:00 | NUR ---
RT NOTE Pt began to show increased wob and sob after O2 titration. Placed back on 50% Fio2 and [address] Lili youssef. No sob noted @ this time. Addendum: 11/16/19 at 1434 by LARS GONZALEZ RT Amended: Links added.
[2019-11-16] MEDS: ACETAMINOPHEN 650 MG/SUPP.RECT RC PRN (16:43)
--- NOTE | 2019-11-16 17:07 | NUR ---
CATTLE SORTER Note Patient remains awake, alert, oriented x1. FiO2 titration 50% -> 30% @1320, @1400 HR 120s, RR 40-45/min, increased WOB + accessory muscle use. Dr. Pearson ordered change back to 50% FiO2. Appeared comfortable afterward. HR still elevated, 99.1 temp, tylenol given. Lovenox started. Lantus dose held due to decreased blood glucose. New wound care orders received for weeping arms. Noted and carried out. MANDEEP PICC c/d/i. Rectal tube & rao in place.
[2019-11-16] MEDS: INSULIN REGULAR, HUMAN 100 UNIT/ML 3 ML VIAL SQ PRN (17:30)
--- NOTE | 2019-11-16 19:10 | NUR ---
SUBSTATION MAINTENANCE TECHNICIAN OPENING NOTE, RECEIVED PATIENT IN BED AWAKE, ON DROPLET ISOLATION FOR COVID (+), ON VENT SETTING, PATIENT IS SIMV PER MD ORDER ,TOLERATING WELL, NO SOB OR ACUTE DISTRESS NOTED AT THIS TIME. ST ON BEDSIDE MONITOR 114. ORAL TUBE FEEDING GLUCERNA 1.2 AT 55 ML/HR TOLERATING WELL/, MANDEEP PICC LINE FLUSHED AND INTACT NO INFILTRATION NOTED. PIERSON CATH DRAINING TO GRAVITY YELLOW/CLEAR URINE. RECTAL TUBE INTACT AND NOTED DRAINING BROWN LIQUID STOOL. PATIENT IS SIMV PER MD ORDER ,TOLERATING WELL. SAFETY MEASURES IMPLEMENTED, BED IN LOW/LOCKED POSITION. WILL CONTINUE TO MONITOR THE PATIENT.
[2019-11-17] VITALS (24 sets, daily range): BP systolic 101–140; BP diastolic 51–102
[2019-11-17] MEDS: BLOOD SUGAR DIAGNOSTIC 1 EACH STRIP IN SCH ×4 (00:33→18:38)
[2019-11-17] MEDS: INSULIN REGULAR, HUMAN 100 UNIT/ML 3 ML VIAL SQ PRN ×4 (00:37→18:38)
[2019-11-17] MEDS: HYDROCODONE/APAP 5/325MG 1 EACH TABLET PO PRN (01:31)
[2019-11-17 05:22] LABS: BASOPHILS # (AUTO) 0.1 /CMM (0.0-0.2); BASOPHILS % (AUTO) 1.4 % (0.0-2.0); EOSINOPHILS % (AUTO) 0.4 % (0.0-6.0); HEMATOCRIT 24 % (33-45); HEMOGLOBIN 7.8 g/dL (11.5-14.8); LYMPHOCYTES # (AUTO) 0.4 /CMM (0.8-4.8); LYMPHOCYTES % (AUTO) 11.7 % (20.0-44.0); MEAN CORPUSCULAR HGB CONC 33 g/dl (31.0-36.0); MEAN CORPUSCULAR VOLUME 92 fL (82-100); MONOCYTES # (AUTO) 0.2 /CMM (0.1-1.30); MONOCYTES % (AUTO) 6.7 % (2.0-12.0); NEUTROPHILS # (AUTO) 2.8 /CMM (1.8-8.9); NEUTROPHILS % (AUTO) 79.8 % (43.0-81.0); PLATELET COUNT (AUTO) 207 /CMM (150-450); RED BLOOD CELL COUNT(AUTO) 2.58 MIL/uL (4.0-5.2); WHITE BLOOD COUNT (AUTO) 3.5 K/uL (4.3-11.0)
[2019-11-17 06:00] LABS: CALCIUM, SERUM 8.4 mg/dL (8.5-10.1); CREATININE 1.1 mg/dL (0.6-1.3); MAGNESIUM 2.3 mg/dL (1.8-2.4); PHOSPHORUS 4.4 mg/dL (2.5-4.9); POTASSIUM 3.9 mmol/L (3.5-5.1)
--- NOTE | 2019-11-17 06:50 | NUR ---
TECHNICAL SERVICES COORDINATOR CLOSING NOTES PT ASLEEP ON BED EASY TO AWAKE NO SIGN AND SYMPTOMS OF RESPIRATORY DISTRESS ON ETT/VENT SETTING ORDERED MAINTAINING SPO2>94% ON TELE MONITOR READING SINUS TACHY WITH INVERTED T WAVE, WOUND TREATMENT DONE ORDERED DROPLET PRECAUTION FOR COVID 19 (+) MAINTAINED SAFETY MEASURE MAINTAINED ALL NEEDS ATTENDED CALL LIGHT WITHIN REACH WILL ENDORSE TO AM SHIFT NURSE
--- NOTE | 2019-11-17 07:05 | NUR ---
RN NOTES RECEIVED PATIENT ON BED, INTUBATED, EYES ARE OPEN, PT DOES NOT FOLLOW COMMAND , ON DROPLET ISOLATION FOR COVID (+), ON VENT SETTING, NO SOB OR ACUTE DISTRESS NOTED AT THIS TIME. ST ON MONITOR , HR IN 100'S , ORAL TUBE FEEDING GLUCERNA 1.2 AT 55 ML/HR TOLERATING WELL/, MANDEEP PICC LINE FLUSHED AND INTACT NO INFILTRATION NOTED. PIERSON CATH DRAINING TO GRAVITY YELLOW/CLEAR URINE. RECTAL TUBE INTACT AND NOTED DRAINING BROWN LIQUID STOOL. SAFETY MEASURES IMPLEMENTED, BED LOCKED AND IN LOWEST POSITION. CONTINUE TO MONITOR .
--- NOTE | 2019-11-17 08:00 | NUR ---
RN NOTES BRITTANI JUDGE , BG 88 THIS MORNING , EMMANUEL VIDEO TAPE EDITOR NOTIFIED.
[2019-11-17] MEDS: HYDROCORTISONE SOD SUCCINATE 100 MG/2 ML VIAL IV SCH (08:28)
[2019-11-17] MEDS: HYDROGEL DRESSING 90 GM TUBE TP SCH (08:29)
[2019-11-17] MEDS: ENOXAPARIN SODIUM 40 MG/0.4 ML DISP.SYRIN SQ SCH (08:29)
[2019-11-17] MEDS: CLOTRIMAZOLE/BETAMETASONE DIPROPIONATE 15 GM TUBE TP SCH ×2 (08:30→17:50)
[2019-11-17] MEDS: CADEXOMER IODINE 40 GM TUBE TP SCH (08:30)
[2019-11-17] MEDS: INSULIN GLARGINE, 100 UNIT/ML CARTRIDGE SQ SCH ×2 (09:00→18:40)
--- NOTE | 2019-11-17 10:00 | NUR ---
RN NOTES PT TOLERIANG CPAP MODE, WELL, ETT AND ORAL SUCTION DONE, CONTINUE TO MONITOR .
--- NOTE | 2019-11-17 13:00 | NUR ---
RN NOTES, VSS STABLE, NO DISTRESS NOTED .
--- NOTE | 2019-11-17 15:46 | NUR ---
RT NOTE: PATIENT RECEIVED ORALLY INTUBATED WITH 7.5 ETT SECURED @ 22 CM MID LIP LINE ON MECHANICAL VENT. ALERT PATIENT REMAINS ON WEANING MODE PER MD ORDER. PATIENT TOLERATING WELL ALTHOUGH INTERMITTENTLY TACHYPNEIC. MD AWARE. WILL CONTINUE TO MONITOR. PER POSSIBLE EXTUBATION TO HIGH FLOW TOMORROW AM. JUNIOR ELECTRICAL ENGINEER ALONA Childers NOTIFIED. WILL INDORSE TO INCOMING SHIFT. VENT PLUGGED INTO RED OUTLET. ALARMS VERIFIED AND AUDIBLE. AMBU BAG AT [facility].
[2019-11-17] MEDS: GLUCERNA 1.2 1,000 ML BOTTLE NG PRN (15:51)
[2019-11-17] MEDS: DAKINS QUARTER STRENGTH (0.125%) 480 ML BOTTLE TOP SCH (17:25)
--- NOTE | 2019-11-17 18:00 | NUR ---
RN NOTES PT REMAINS INTUBATED, TOLERATING CPAP MODE WELL ON VENTILATOR . VSS STABLE, SR UP x3, CALL LIGHT WITHIN EASY REACH, BED LOCKED AND IN LOWEST POSITION, WILL ENDOSE TO ESTHETICIAN AND MANAGER MEDICAL SPA NURSE FOR CONTINUITY OF CARE .
--- NOTE | 2019-11-17 19:42 | NUR ---
PT RECEIVED ORALLY INTUBATED WITH 7.5 ET TUBE SECURED @ 22 CM LIP LINE. CUFF CHECKED VIA HARNESSMAKER. SX DONE, ET TUBE SECURED AND PATENT. NO RESPIRATORY DISTRESS. ALARMS ON AND AUDIBLE. WILL MONITOR T/O SHIFT.
--- NOTE | 2019-11-17 20:56 | NUR ---
floriculture teacher. initial assessment. received the pt rest on the bed. orally intubated. pt is awake, ett 7.5,lip 22presser support 15,tv 400,fio2 30%,peep 5. sat 98%. duct cleaner showing s tach, iv lt upper arm picc line. tko running, fc patent. ogt feeding glucerna 55 ml/h.felxa seal intact. multiple wound. hob elevated. will continue to monitor vitals.
[2019-11-18] VITALS (23 sets, daily range): BP systolic 110–146; BP diastolic 58–78
[2019-11-18] MEDS: BLOOD SUGAR DIAGNOSTIC 1 EACH STRIP IN SCH ×4 (00:39→18:13)
[2019-11-18] MEDS: INSULIN REGULAR, HUMAN 100 UNIT/ML 3 ML VIAL SQ PRN ×4 (00:46→18:16)
--- NOTE | 2019-11-18 03:05 | NUR ---
agricultural chemist. remain eddie same vent setting tolerated well. sat 99%. monitor technician showing controlled afib. iv lt upper arm picc line tko running. fc intact, urine draining,afebrile. will continue to monitor vitals.hob elevated. vitals stable. will continue to monitor vitals
[2019-11-18 05:01] LABS: BASOPHILS # (AUTO) 0.1 /CMM (0.0-0.2); BASOPHILS % (AUTO) 1.3 % (0.0-2.0); EOSINOPHILS % (AUTO) 0.1 % (0.0-6.0); HEMATOCRIT 23 % (33-45); HEMOGLOBIN 7.5 g/dL (11.5-14.8); LYMPHOCYTES # (AUTO) 0.4 /CMM (0.8-4.8); LYMPHOCYTES % (AUTO) 9.7 % (20.0-44.0); MEAN CORPUSCULAR HGB CONC 32 g/dl (31.0-36.0); MEAN CORPUSCULAR VOLUME 93 fL (82-100); MONOCYTES # (AUTO) 0.2 /CMM (0.1-1.30); MONOCYTES % (AUTO) 4.8 % (2.0-12.0); NEUTROPHILS # (AUTO) 3.6 /CMM (1.8-8.9); NEUTROPHILS % (AUTO) 84.1 % (43.0-81.0); PLATELET COUNT (AUTO) 235 /CMM (150-450); RED BLOOD CELL COUNT(AUTO) 2.49 MIL/uL (4.0-5.2); WHITE BLOOD COUNT (AUTO) 4.3 K/uL (4.3-11.0)
[2019-11-18 05:39] LABS: ALBUMIN 1.9 g/dL (3.4-5.0); BILIRUBIN,TOTAL 0.4 mg/dL (0.2-1.0); CALCIUM, SERUM 8.7 mg/dL (8.5-10.1); CREATININE 1.4 mg/dL (0.6-1.3); MAGNESIUM 2.4 mg/dL (1.8-2.4); PHOSPHORUS 4.5 mg/dL (2.5-4.9); POTASSIUM 4.2 mmol/L (3.5-5.1); TOTAL PROTEIN, SERUM 5.9 g/dL (6.4-8.2)
--- NOTE | 2019-11-18 07:35 | NUR ---
GOLF COURSE KEEPER NOTES RECEIVED PATIENT A/OX2-3 AWAKE IN BED ON ETT 7.5 AND ORAL GTUBE FEEDING. NO RESIDUAL NOTED FROM THE GTUBE FEEDING. PATIENT ON DROPLET ISOLATION FOR COVID -19. SINUS [id number]. ON PIERSON CATHETER AND FLEXISEAL. NO SOB OR DISCOMFORT NOTED AT THIS TIME. BED AT THE LOWEST POSITION LOCKED, SIDE RAILS UPX2, CALL LIGHT WITHIN REACH. WILL CONTINUE TO MONITOR THE PATIENT.
[2019-11-18] MEDS: CLOTRIMAZOLE/BETAMETASONE DIPROPIONATE 15 GM TUBE TP SCH ×2 (08:42→17:34)
[2019-11-18] MEDS: HYDROCORTISONE SOD SUCCINATE 100 MG/2 ML VIAL IV SCH (08:46)
[2019-11-18] MEDS: ENOXAPARIN SODIUM 40 MG/0.4 ML DISP.SYRIN SQ SCH (08:48)
[2019-11-18] MEDS: INSULIN GLARGINE, 100 UNIT/ML CARTRIDGE SQ SCH ×2 (09:08→17:12)
[2019-11-18] MEDS: HYDROGEL DRESSING 90 GM TUBE TP SCH (09:09)
[2019-11-18] MEDS: CADEXOMER IODINE 40 GM TUBE TP SCH (09:09)
[2019-11-18] MEDS: DAKINS QUARTER STRENGTH (0.125%) 480 ML BOTTLE TOP SCH ×2 (09:09→17:34)
--- NOTE | 2019-11-18 13:46 | NUR ---
RT NOTE: PATIENT RECEIVED ORALLY INTUBATED WITH 7.5 ETT SECURED AT 22 CM MID LIP LINE ON MECHANICAL VENT. NEW ANCHOR FAST IN PLACE. @0805- PATIENT PLACED ON SIMV MODE PER DR. GOLDEN'S ORDER. PATIENT TOLERATING WELL. VENT ALARMS VERIFIED AND AUDIBLE. VENT PLUGGED INTO RED OUTLET. AMBU BAG AT [facility].
[2019-11-18] MEDS: GLUCERNA 1.2 1,000 ML BOTTLE NG PRN (15:13)
--- NOTE | 2019-11-18 19:18 | NUR ---
FORENSIC AUDIT EXPERT NOTES PATIENT AWAKE IN BED NO MAJOR CHANGES DURING THE SHIFT. NO SOB OR DISCOMFORT AT THIS TIME. REPORT GIVEN TO UNIT MANAGER CONVENIENCE STORES NURSE.
--- NOTE | 2019-11-18 19:38 | NUR ---
PT RECEIVED ORALLY INTUBATED WITH 7.5 ET TUBE SECURED @ 22 CM LIP LINE. CUFF CHECKED VIA MEDICAL POLICY SPECIALIST. SX DONE, ET TUBE SECURED AND PATENT. NO RESPIRATORY DISTRESS. ALARMS ON AND AUDIBLE. WILL MONITOR T/O SHIFT.
--- NOTE | 2019-11-18 20:21 | NUR ---
horticultural farm manager. initial assessment. received the pt rest on the bed. orally intubated, ett 7.5,lip 22,ps 15,fio2 30%,peep 5, sat 98%. motor equipment lieutenant showing nsr. iv lt upper arm picc line ivf tko running. fc patent. urine draining. ogt intact. glucerna 55ml/h,flexa seal intact. pt has loose stool. hob elevated. arcenio lower and upper extremity cyanosed. motor equipment lieutenant showing s tach. rate is 104. will continue to monitor vitals.
--- NOTE | 2019-11-18 21:17 | NUR ---
director nicu. pt trying to reach the ett, Lt hand soft wrist restraint initiated
[2019-11-19] VITALS (25 sets, daily range): BP systolic 108–158; BP diastolic 58–95
[2019-11-19] MEDS: INSULIN REGULAR, HUMAN 100 UNIT/ML 3 ML VIAL SQ PRN ×4 (01:19→18:56)
--- NOTE | 2019-11-19 03:08 | NUR ---
FLAT FOLDER. REMAINING SAME VENT SETTING TOLERATED WELL. SAT 97%, NO ACUTE DISTRESS NOTED, FOIL WRAPPER SHOWING S TACH, IV LT UPPER ARM PICC LINE SALINE LOCK.OGT FEEDING TOLERATED WELL. LT HAND SOFT WRIST RESTRAINT CHECKED AND RELEASED, NO INJURY OR REDNESS NOTED. FC PATENT. FLEXA SEAL INTACT, WOUND DRESSING DONE. WILL CONTINUE TO MONITOR VITALS.
[2019-11-19 05:52] LABS: BASOPHILS % (AUTO) 0.9 % (0.0-2.0); EOSINOPHILS % (AUTO) 0.7 % (0.0-6.0); HEMATOCRIT 23 % (33-45); HEMOGLOBIN 7.7 g/dL (11.5-14.8); LYMPHOCYTES # (AUTO) 0.5 /CMM (0.8-4.8); LYMPHOCYTES % (AUTO) 11.2 % (20.0-44.0); MEAN CORPUSCULAR HGB CONC 33 g/dl (31.0-36.0); MEAN CORPUSCULAR VOLUME 93 fL (82-100); MONOCYTES # (AUTO) 0.3 /CMM (0.1-1.30); MONOCYTES % (AUTO) 5.6 % (2.0-12.0); NEUTROPHILS # (AUTO) 3.7 /CMM (1.8-8.9); NEUTROPHILS % (AUTO) 81.6 % (43.0-81.0); PLATELET COUNT (AUTO) 238 /CMM (150-450); RED BLOOD CELL COUNT(AUTO) 2.49 MIL/uL (4.0-5.2); WHITE BLOOD COUNT (AUTO) 4.5 K/uL (4.3-11.0)
[2019-11-19] MEDS: BLOOD SUGAR DIAGNOSTIC 1 EACH STRIP IN SCH ×5 (06:00→23:17)
[2019-11-19 06:10] LABS: CALCIUM, SERUM 8.6 mg/dL (8.5-10.1); CREATININE 1.2 mg/dL (0.6-1.3); POTASSIUM 3.5 mmol/L (3.5-5.1)
--- NOTE | 2019-11-19 07:35 | NUR ---
HALFWAY HOUSE COUNSELOR NOTES RECEIVED PATIENT A/OX 3 AWAKE IN BED ON ETT 7.5 AND ORAL GTUBE FEEDING. NO RESIDUAL NOTED FROM THE GTUBE FEEDING. ON DROPLET ISOLATION FOR COVID -19. SINUS [id number]. ON PIERSON CATHETER AND FLEXISEAL. NO SOB OR DISCOMFORT NOTED AT THIS TIME. BED AT THE LOWEST POSITION LOCKED, SIDE RAILS UPX2, CALL LIGHT WITHIN REACH. WILL CONTINUE TO MONITOR THE PATIENT.
[2019-11-19] MEDS: ACETAMINOPHEN 650 MG/SUPP.RECT RC PRN (08:16)
[2019-11-19] MEDS: HYDROCORTISONE SOD SUCCINATE 100 MG/2 ML VIAL IV SCH (08:17)
[2019-11-19] MEDS: ENOXAPARIN SODIUM 40 MG/0.4 ML DISP.SYRIN SQ SCH (08:19)
[2019-11-19] MEDS: INSULIN GLARGINE, 100 UNIT/ML CARTRIDGE SQ SCH ×2 (08:45→18:13)
[2019-11-19] MEDS: DAKINS QUARTER STRENGTH (0.125%) 480 ML BOTTLE TOP SCH ×2 (08:46→17:19)
[2019-11-19] MEDS: CADEXOMER IODINE 40 GM TUBE TP SCH (08:46)
[2019-11-19] MEDS: HYDROGEL DRESSING 90 GM TUBE TP SCH (08:46)
[2019-11-19] MEDS: CLOTRIMAZOLE/BETAMETASONE DIPROPIONATE 15 GM TUBE TP SCH ×2 (08:47→17:19)
--- NOTE | 2019-11-19 09:45 | NUR ---
SOFTWARE CONFIGURATION ENGINEER NOTES PATIENT REMOVED THE ORAL TUBE FEEDING. NEW ORDER FOR PROPOFOL FROM MD PERKINS. PER MD IT IS OK TO REINSERT THE ORAL FEEDING TUBE AFTER PROPOFOL ADMINISTRATED.
[2019-11-19] MEDS: PROPOFOL 100 ML IV PRN ×2 (11:06→16:55)
--- NOTE | 2019-11-19 11:35 | NUR ---
HOSPITAL WARD CLERK NOTES PER DR GIL CHANGE THE PATIENT `S SETTING TO AC , PATIENT ON PROPOFOL GRADUALLY INCREASED THE PROPOFOL TO 15 MCG.
--- NOTE | 2019-11-19 12:45 | NUR ---
SOFTWARE FIRMWARE ENGINEER NOTES ORAL FEEDING TUBE INSERTED , AUSCULTATED PATENT, XRAY ORDERED FOR PLACEMENT.
--- NOTE | 2019-11-19 19:05 | NUR ---
COILED PICC LINE Persistent partially coiled left-sided PICC line in the mid SVC. Retraction and repositioning is recommended.NOTED ON CHEST X RAY. NOTIFIED PICC LINE NURSE
--- NOTE | 2019-11-19 19:05 | NUR ---
RN OPENING NOTES RECEIVED PATIENT IN BED, INTUBATED AND SEDATED ON PROPOFOL RUNNING AT 35MCG. TOLERATING CURRENT VENT SETTINGS WELL, SATURATING 98%, NO SOB OR RESPIRATORY DISTRESS. IV SITE MANDEEP PICC, PER REPORT CHEST XRAY SHOWED COILED, NEW PICC BEING INSERTED BY MYKE ANGELES AT THE MOMENT. OGT FEEDING RUNNING AT 55ML/HR, TOLERATING WELL, NO RESIDUAL NOTED. BOTH PIERSON CATH AND RECTAL TUBE INTACT AND DRAINING WELL. HOB ELEVATED. SAFETY MEASURES AND ISOLATION PRECAUTIONS MAINTAINED. WILL CONT TO MONITOR CLOSELY.
--- NOTE | 2019-11-19 19:12 | NUR ---
VICE PRESIDENT OF NEWS NOTES PER PICC LINE NURSEBRIDGETTE THE RIGHT PICC LINE IS COILED AND THE PATIENT NEEDS A NEW PICC LINE.
[2019-11-19] MEDS: GLUCERNA 1.2 1,000 ML BOTTLE NG PRN (19:14)
--- NOTE | 2019-11-19 19:45 | NUR ---
DATA ENTRY PROCESSOR NURSE PICC LINE WAS CHANGED FROM LEFT HAND TO THE RIGHT HAND. CALL MADE TO DR SANTANA. DR SANTANA APPROVED THE PICC LINE INSERTION
--- NOTE | 2019-11-19 19:47 | NUR ---
FOOD AND BEVERAGE SERVICE MANAGER NOTES PATIENT IN BED , NO SOB OR DISTRESS NOTED AT THIS TIME. CONSENT SIGNED AND PLACED IN CHART FOR PICC LINE. ALL NEEDS ATTENDED. REPORT GIVEN TO INCIDENT RESPONSE ANALYST NURSE.
--- NOTE | 2019-11-19 20:00 | NUR ---
RN NOTES NEW MARK PICC LINE NOTED PLACED BY CENTRAL LINE NURSE BRIDGETTE. FLUSHING AND INTACT. WILL REMOVE MANDEEP PICC LINE DUE TO COILING ON XRAY PER REPORT. WILL CONT TO MONITOR PATIENT.
[2019-11-20] VITALS (33 sets, daily range): BP systolic 93–120; BP diastolic 50–64
[2019-11-20] MEDS: HYDROCODONE/APAP 5/325MG 1 EACH TABLET PO PRN (03:28)
[2019-11-20 05:08] LABS: BASOPHILS % (AUTO) 1.2 % (0.0-2.0); EOSINOPHILS % (AUTO) 0.9 % (0.0-6.0); HEMATOCRIT 22 % (33-45); HEMOGLOBIN 7.3 g/dL (11.5-14.8); LYMPHOCYTES # (AUTO) 0.5 /CMM (0.8-4.8); LYMPHOCYTES % (AUTO) 13.7 % (20.0-44.0); MEAN CORPUSCULAR HGB CONC 33 g/dl (31.0-36.0); MEAN CORPUSCULAR VOLUME 94 fL (82-100); MONOCYTES # (AUTO) 0.2 /CMM (0.1-1.30); MONOCYTES % (AUTO) 6.4 % (2.0-12.0); NEUTROPHILS # (AUTO) 2.6 /CMM (1.8-8.9); NEUTROPHILS % (AUTO) 77.8 % (43.0-81.0); PLATELET COUNT (AUTO) 197 /CMM (150-450); RED BLOOD CELL COUNT(AUTO) 2.38 MIL/uL (4.0-5.2); WHITE BLOOD COUNT (AUTO) 3.3 K/uL (4.3-11.0)
[2019-11-20 05:42] LABS: ALBUMIN 1.8 g/dL (3.4-5.0); BILIRUBIN,TOTAL 0.3 mg/dL (0.2-1.0); CALCIUM, SERUM 8.4 mg/dL (8.5-10.1); CREATININE 1.1 mg/dL (0.6-1.3); MAGNESIUM 2.3 mg/dL (1.8-2.4); PHOSPHORUS 3.8 mg/dL (2.5-4.9); TOTAL PROTEIN, SERUM 5.5 g/dL (6.4-8.2)
[2019-11-20] MEDS: BLOOD SUGAR DIAGNOSTIC 1 EACH STRIP IN SCH ×3 (06:22→17:31)
[2019-11-20] MEDS: INSULIN REGULAR, HUMAN 100 UNIT/ML 3 ML VIAL SQ PRN ×3 (06:24→17:30)
[2019-11-20] MEDS: PROPOFOL 100 ML IV PRN ×4 (06:25→19:06)
--- NOTE | 2019-11-20 07:00 | NUR ---
RN CLOSING NOTES PATIENT STILL SEDATED, ON PROPOFOL 35MCG. NO ACUTE CHANGES THROUGHOUT SHIFT. INTUBATED AND TOLERATING CURRENT VENT SETTINGS. NO SOB OR RESPIRATORY DISTRESS. O2 SAT 99% AT THE MOMENT. ON TELE MONITOR SINUS KIM WITH HR 58BPM. IV SITE MARK PICC, FLUSHING AND INTACT. OGT FEEDING RUNNING AT 55ML/HR, TOLERATING WELL, NO RESIDUAL NOTED. BOTH PIERSON CATH AND RECTAL TUBE INTACT AND DRAINING WELL. HOB ELEVATED. KEPT PT CLEAN, DRY, AND COMFORTABLE. ALL MD ORDERS ATTENDED. SAFETY MEASURES AND ISOLATION PRECAUTIONS MAINTAINED. ENDORSED TO AM RN FOR SABINO.
--- NOTE | 2019-11-20 07:30 | NUR ---
RN OPENING NOTES RECEIVED PATIENT ON PROPOFOL DRIP, PATIENT IS SEDATED ON PROPOFOL, RUNNING AT 35MCG, TOLERATING WELL, PATIENT LOOKS COMFORTABLE AND IN NO ACUTE DISTRESS. SEDATION VACATION WILL BE PERFORMED. ON TELE MONITOR WITH SINUS KIM NOTED, HR AT 58BPM. IV ON MARK INTACT, PATENT, AND FLUSHED WELL. NO SIGNS OF INFECTION NOTED. G TUBE FEEDING RUNNING ORDERED, PATIENT TOLERATING WELL. NO RESIDUAL NOTED. PIERSON AND RECTAL TUBE ARE IN PLACE, INTACT, AND DRAINING WELL. SAFETY MAINTAINED, CALL LIGHT WITHIN REACH, WILL CONTINUE TO MONITOR.
[2019-11-20] MEDS: ENOXAPARIN SODIUM 40 MG/0.4 ML DISP.SYRIN SQ SCH (09:10)
[2019-11-20] MEDS: HYDROGEL DRESSING 90 GM TUBE TP SCH (09:10)
[2019-11-20] MEDS: DAKINS QUARTER STRENGTH (0.125%) 480 ML BOTTLE TOP SCH ×2 (09:10→17:31)
[2019-11-20] MEDS: CADEXOMER IODINE 40 GM TUBE TP SCH (09:11)
[2019-11-20] MEDS: CLOTRIMAZOLE/BETAMETASONE DIPROPIONATE 15 GM TUBE TP SCH ×2 (09:11→17:31)
[2019-11-20] MEDS: HYDROCORTISONE SOD SUCCINATE 100 MG/2 ML VIAL IV SCH (09:16)
[2019-11-20] MEDS: INSULIN GLARGINE, 100 UNIT/ML CARTRIDGE SQ SCH ×2 (09:53→17:29)
[2019-11-20] MEDS: IV D5W 1,000 ML IV PRN (10:21)
[2019-11-20] MEDS: POTASSIUM CHLORIDE 20 MEQ POWDER PACKET GT SCH ×3 (10:21→11:46)
[2019-11-20] MEDS: GLUCERNA 1.2 1,000 ML BOTTLE NG PRN ×2 (17:17→17:58)
--- NOTE | 2019-11-20 19:28 | NUR ---
RN CLOSING NOTE NO ACUTE CHANGES TO PATIENT CONDITION DURING MY SHIFT. ALL PATIENT NEEDS MET, PATIENT REMAINED ON PROPOFOL DRIP, WAS INCREASED TO 45MCG, PATIENT TOLERATED WELL, COMFORTABLE AT THIS RATE WITH RESPIRATIONS EVEN AND UNLABORED. PATIENT SAFETY WAS MAINTAINED, CALL LIGHT WITHIN REACH, BLOOD TRANSFUSION IS RUNNING ORDERED, 1PRBC BEING TRANSFUSED, NO REACTION WAS OBSERVED AND VITAL SIGNS HAVE BEEN STABLE. ENDORSED TO PM NURSE TO CONTINUE CARE.
--- NOTE | 2019-11-20 21:38 | NUR ---
GIVER NOTES BLOOD TRANSFUSION 1 UNIT PRBC COMPLETE, PATIENT TOLERATED WELL, NO S/S OF ADVERSE BLOOD TRANSFUSION REACTION. WILL MONITOR CLOSELY
[2019-11-21] VITALS (37 sets, daily range): BP systolic 73–121; BP diastolic 42–75
--- NOTE | 2019-11-21 01:00 | NUR ---
GROUP COUNSELOR NOTES DESPITE PROPOFOL DRIP INFUSING @ 45MCG/KG/MIN, PATIENT REMAINS TACHYPNEIC. DR SANTANA NOTIFIED REGARDING CURRENT CONDITION, WITH ORDER FOR MORPHINE 2MG IV PUSH Q3H PRN
[2019-11-21] MEDS: BLOOD SUGAR DIAGNOSTIC 1 EACH STRIP IN SCH ×4 (01:01→17:07)
[2019-11-21] MEDS: INSULIN REGULAR, HUMAN 100 UNIT/ML 3 ML VIAL SQ PRN ×3 (01:03→12:18)
[2019-11-21] MEDS: PROPOFOL 100 ML IV PRN ×3 (03:57→17:10)
[2019-11-21] MEDS: MORPHINE SULFATE INJ 2 MG/ML DISP.SYRIN IV PRN (03:59)
--- NOTE | 2019-11-21 04:00 | NUR ---
DIRECTOR SURFACE TRANSPORTATION NOTES PATIENT NOTED AGAIN TO BE TACHYPNEIC DESPITE DIPRIVAN DRIP. MORPHINE IV PUSH ADMINISTERED, BEGAN TO TITRATE DOWN DIPRIVAN BP TRENDING LOWER. WILL MONITOR
[2019-11-21 04:47] LABS: BASOPHILS # (AUTO) 0.1 /CMM (0.0-0.2); BASOPHILS % (AUTO) 1.1 % (0.0-2.0); EOSINOPHILS % (AUTO) 0.7 % (0.0-6.0); HEMATOCRIT 31 % (33-45); HEMOGLOBIN 10.1 g/dL (11.5-14.8); LYMPHOCYTES # (AUTO) 0.5 /CMM (0.8-4.8); LYMPHOCYTES % (AUTO) 8.7 % (20.0-44.0); MEAN CORPUSCULAR HGB CONC 33 g/dl (31.0-36.0); MEAN CORPUSCULAR VOLUME 93 fL (82-100); MONOCYTES # (AUTO) 0.2 /CMM (0.1-1.30); MONOCYTES % (AUTO) 4.4 % (2.0-12.0); NEUTROPHILS # (AUTO) 4.6 /CMM (1.8-8.9); NEUTROPHILS % (AUTO) 85.1 % (43.0-81.0); PLATELET COUNT (AUTO) 219 /CMM (150-450); WHITE BLOOD COUNT (AUTO) 5.4 K/uL (4.3-11.0)
[2019-11-21 04:58] LABS: CALCIUM, SERUM 8.2 mg/dL (8.5-10.1); CREATININE 1.2 mg/dL (0.6-1.3); POTASSIUM 3.7 mmol/L (3.5-5.1)
[2019-11-21] MEDS: IV D5W 1,000 ML IV PRN (05:35)
[2019-11-21 05:38] LABS: C-REACTIVE PROTEIN 3.8 mg/dL (0.0-0.9)
--- NOTE | 2019-11-21 07:00 | NUR ---
MONOTYPE MECHANIC NOTES PATIENT'S PROPOFOL DRIP TITRATED DOWN TO 10 MCG/KG/MIN, TOLERATING WELL. PATIENT RELAXED AT THIS TIME, NO IN ANY ACUTE OR RESPIRATORY DISTRESS. WILL ENDORSE THE PATIENT TO THE AM SHIFT NURSE FOR SABINO
--- NOTE | 2019-11-21 07:38 | NUR ---
RN NOTE RECEIVED PATIENT FROM PM NURSE, PATIENT IS AWAKE, RUNNING ON PROPOFOL AT 10MCG, INCREASED THE DOSE TO 15 TO SEDATE THE PATIENT. PATIENT HAS DE SATURATED LAST NIGHT, FIO2% WAS INCREASED TO 100%. AT THE MOMENT. PATIENT IS SATURATING WELL, WITH RESPIRATORY RATE AT 18 AND SATURATION AT 98%. ON TELE MONITOR WITH SR NOTED, HR AT 77BPM. OGT IS IN PLACE, INTACT, PATENT AND FLUSHED WELL. CHECKED PLACEMENT VIA AUSCULTATION. FEEDING RUNNING AT ORDERED RATE, PATIENT IS TOLERATING WELL, NO RESIDUAL NOTED. MARK PICC LINE IN PLACE, INTACT, PATENT AND FLUSHED WELL. SAFETY MAINTAINED, CALL LIGHT WITHIN REACH, WILL CONTINUE TO MONITOR.
[2019-11-21] MEDS: HYDROCORTISONE SOD SUCCINATE 100 MG/2 ML VIAL IV SCH (09:11)
[2019-11-21] MEDS: ENOXAPARIN SODIUM 40 MG/0.4 ML DISP.SYRIN SQ SCH (09:12)
[2019-11-21] MEDS: CADEXOMER IODINE 40 GM TUBE TP SCH (09:12)
[2019-11-21] MEDS: HYDROGEL DRESSING 90 GM TUBE TP SCH (09:12)
[2019-11-21] MEDS: DAKINS QUARTER STRENGTH (0.125%) 480 ML BOTTLE TOP SCH ×2 (09:12→17:07)
[2019-11-21] MEDS: CLOTRIMAZOLE/BETAMETASONE DIPROPIONATE 15 GM TUBE TP SCH ×2 (09:13→17:07)
[2019-11-21] MEDS: INSULIN GLARGINE, 100 UNIT/ML CARTRIDGE SQ SCH ×2 (09:49→18:02)
[2019-11-21] MEDS: GLUCERNA 1.2 1,000 ML BOTTLE NG PRN (17:06)
--- NOTE | 2019-11-21 22:16 | NUR ---
RN CLOSING NOTES PATIENT SEDATED ON PROPOFOL AT THE MOMENT, RUNNING ORDERED AT 0.35MCG, TOLERATING WELL, PATIENT IS COMFORTABLE AT THE MOMENT. VITAL SIGNS ARE STABLE. NO ACUTE CHANGES DURING MY SHIFT, ALL PATIENT NEEDS MET, ALL SCHEDULED MEDS GIVEN ON TIME, SAFETY WAS MAINTAINED, CALL LIGHT WITHIN REACH, ENDORSED TO PM NURSE TO CONTINUE CARE.
--- NOTE | 2019-11-21 22:30 | NUR ---
MANUFACTURING TEAM MEMBER RCD PT W/DX RESP FAIL. PT ON ISOLATION PRECAUTIONS FOR COVID+. PENDING SECOND COVID RESULT. NSR ON MONITOR. SEDATED ON PROPOFOL @ 35 MCG/KG/MIN. PIERSON CATH IN PLACE DRAINING LARGE AMOUNT OF YELLOW CLOUDY URINE W/SEDIMENT. RECTAL TUBE IN PLACE WITH LIQUID BROWN STOOL NOTED. MARK PICC PATENT AND W/GOOD BLOOD RETURN. OG TUBE W/GLUCERNA AT 55 ML/HR. MIN RESIDUAL NOTED.
[2019-11-22] VITALS (71 sets, daily range): BP systolic 60–172; BP diastolic 38–113
--- NOTE | 2019-11-22 | NUR ---
REPLANTER 350 ML FREE WATER FLUSH VIA OG TUBE. PT TOLERATED WELL.
[2019-11-22] MEDS: IV D5W 1,000 ML IV PRN ×2 (01:45→22:11)
--- NOTE | 2019-11-22 02:00 | NUR ---
EQUIPMENT MONITOR PHOTOTYPESETTING RENDERED FULL BED BATH, ORAL CARE, ECG LEAD CHANGE AND WOUND CARE. PT TOLERATED WELL.
[2019-11-22] MEDS: PROPOFOL 100 ML IV PRN ×5 (02:55→21:58)
--- NOTE | 2019-11-22 05:05 | NUR ---
unable to increase peep to 10 at this time due to increased peak inspiratory pressures greater than 60 Addendum: 11/22/19 at 0527 by BETHANY BELTRAN Amended: Links added.
[2019-11-22 05:07] LABS: BASOPHILS % (AUTO) 0.9 % (0.0-2.0); EOSINOPHILS % (AUTO) 0.4 % (0.0-6.0); HEMATOCRIT 28 % (33-45); HEMOGLOBIN 9.4 g/dL (11.5-14.8); LYMPHOCYTES # (AUTO) 0.7 /CMM (0.8-4.8); LYMPHOCYTES % (AUTO) 12.5 % (20.0-44.0); MEAN CORPUSCULAR HGB CONC 33 g/dl (31.0-36.0); MEAN CORPUSCULAR VOLUME 94 fL (82-100); MONOCYTES # (AUTO) 0.2 /CMM (0.1-1.30); MONOCYTES % (AUTO) 3.2 % (2.0-12.0); NEUTROPHILS # (AUTO) 4.4 /CMM (1.8-8.9); PLATELET COUNT (AUTO) 182 /CMM (150-450); WHITE BLOOD COUNT (AUTO) 5.3 K/uL (4.3-11.0)
[2019-11-22 05:22] LABS: ALBUMIN 1.5 g/dL (3.4-5.0); BILIRUBIN,TOTAL 0.3 mg/dL (0.2-1.0); CALCIUM, SERUM 7.6 mg/dL (8.5-10.1); CREATININE 0.9 mg/dL (0.6-1.3); MAGNESIUM 2.1 mg/dL (1.8-2.4); PHOSPHORUS 3.6 mg/dL (2.5-4.9); POTASSIUM 3.4 mmol/L (3.5-5.1); TOTAL PROTEIN, SERUM 5.4 g/dL (6.4-8.2)
[2019-11-22] MEDS: BLOOD SUGAR DIAGNOSTIC 1 EACH STRIP IN SCH ×4 (05:29→18:22)
--- NOTE | 2019-11-22 05:31 | NUR ---
CLEAT BLANKER PT EVALUATED BY RT UNABLE TO INCREASE PEEP AT THIS TIME D/T INCREASED PEAK INSPIRATORY PRESSURES GREATER THAN 60. FIO2 INCREASED TO 100% AT THIS TIME.
[2019-11-22] MEDS: INSULIN REGULAR, HUMAN 100 UNIT/ML 3 ML VIAL SQ PRN ×3 (05:43→18:22)
--- NOTE | 2019-11-22 07:30 | NUR ---
RN OPENING NOTE RECEIVED PATIENT FROM PM NURSE, PATIENT IS AWAKE, RUNNING ON PROPOFOL AT 35MCG, INCREASED THE DOSE TO SEDATE THE PATIENT, RATE DOCUMENTED ON THE SPREADSHEET. AT THE MOMENT. PATIENT IS SATURATING WELL, WITH RESPIRATORY RATE AT 26 AND SATURATION AT 94%. VENT SETTINGS ORDERED, PATIENT IS SLIGHTLY AGITATED. ON TELE MONITOR WITH SR NOTED, HR AT 77BPM. OGT IS IN PLACE, INTACT, PATENT AND FLUSHED WELL. CHECKED PLACEMENT VIA AUSCULTATION. FEEDING RUNNING AT ORDERED RATE, PATIENT IS TOLERATING WELL, NO RESIDUAL NOTED. MARK PICC LINE IN PLACE, INTACT, PATENT AND FLUSHED WELL. SAFETY MAINTAINED, CALL LIGHT WITHIN REACH, WILL CONTINUE TO MONITOR.
[2019-11-22] MEDS: DAKINS QUARTER STRENGTH (0.125%) 480 ML BOTTLE TOP SCH ×2 (08:45→16:46)
[2019-11-22] MEDS: CADEXOMER IODINE 40 GM TUBE TP SCH (08:46)
[2019-11-22] MEDS: HYDROGEL DRESSING 90 GM TUBE TP SCH (08:46)
[2019-11-22] MEDS: CLOTRIMAZOLE/BETAMETASONE DIPROPIONATE 15 GM TUBE TP SCH ×2 (08:47→16:47)
[2019-11-22] MEDS: HYDROCORTISONE SOD SUCCINATE 100 MG/2 ML VIAL IV SCH (09:05)
[2019-11-22] MEDS: ENOXAPARIN SODIUM 40 MG/0.4 ML DISP.SYRIN SQ SCH (09:06)
[2019-11-22] MEDS: INSULIN GLARGINE, 100 UNIT/ML CARTRIDGE SQ SCH ×2 (09:40→18:21)
[2019-11-22] MEDS: MORPHINE SULFATE INJ 2 MG/ML DISP.SYRIN IV PRN ×3 (09:51→20:38)
[2019-11-22] MEDS ORDERED: POTASSIUM CL. PREMIX PERIPHER. 50 ML IV SCH (10:00)
[2019-11-22] MEDS: POTASSIUM CL. PREMIX PERIPHER. 50 ML IV SCH ×2 (10:55→12:03)
--- NOTE | 2019-11-22 13:20 | NUR ---
RN NOTE PATIENT IS DESATURATING AND BP HAS BEEN DECREASING. PATIENT SEEMS AGITATED AT THE MOMENT. BP HAS BEEN DECREASING, CALLED PHARMACY TO ASK FOR LEVOPHED, WILL START THE DRIP PER PROTOCOL. MD IS AWARE, NO CHANGES TO VENT SETTINGS. PLAN IS TO INCREASE PATIENTS BP AND ADMINISTER MORPHINE WHEN APPROPRIATE TO HELP WITH AGITATION. SAFETY MAINTAINED, CALL LIGHT WITHIN REACH, WILL CONTINUE TO MONITOR.
[2019-11-22] MEDS: NOREPINEPHRINE 32 MG in IV NS 0.9% 218 ML IV PRN (13:48)
[2019-11-22] MEDS: GLUCERNA 1.2 1,000 ML BOTTLE NG PRN (16:52)
--- NOTE | 2019-11-22 19:00 | NUR ---
RN CLOSING NOTES PATIENT IS DESATURATING AT 80% AT THE MOMENT. CALLED RT INTO THE ROOM WAS ABLE TO INCREASE THE SATURATION BACK TO THE 90S. ENDORSED PATIENT TO PM NURSE. STARTED PATIENT ON LEVOPHED DURING MY SHIFT, PATIENT BP HAS BEEN DECREASING WITHOUT IT. LEVO CURRENTLY RUNNING AT 0.04MCG, PATIENT TOLERATING WELL. ON DIPRIVAN DRIP AT 50MCG, SEDATED, AND LOOKS COMFORTABLE AT THE MOMENT. COVID RESULTS CAME BACK POSITIVE AGAIN, NOTIFIED THE PHYSICIANS. SAFETY MAINTAINED, CALL LIGHT WITHIN REACH, ENDORSED TO PM NURSE FOR CONTINUITY OF CARE.
--- NOTE | 2019-11-22 19:39 | NUR ---
RN OPENING NOTE RECEIVED PT SEDATED CURRENTLY ON DIPRIVAN DRIP AT 50 MCG, D5W INFUSING AT 50 ML/HR, GLUCERNA 1.2 INFUSING AT 50 ML/HR. MARK PICC PATENT AND INTACT. PT TOLERATING CURRENT VENT SETTINGS. PIERSON CATH DRAINING YELLOW URINE, SAFETY MEASURES IN PLACE, BED IN LOWEST POSITION, CALL LIGHT WITHIN REACH. WILL CONT. TO MONITOR PT.
[2019-11-23] VITALS (77 sets, daily range): BP systolic 37–157; BP diastolic 21–83
[2019-11-23] MEDS: BLOOD SUGAR DIAGNOSTIC 1 EACH STRIP IN SCH ×2 (00:03→06:06)
[2019-11-23] MEDS: INSULIN REGULAR, HUMAN 100 UNIT/ML 3 ML VIAL SQ PRN ×2 (00:16→06:07)
[2019-11-23] MEDS: MORPHINE SULFATE INJ 2 MG/ML DISP.SYRIN IV PRN ×3 (00:26→10:52)
[2019-11-23] MEDS: PROPOFOL 100 ML IV PRN ×3 (02:27→10:14)
[2019-11-23] MEDS: HYDROCODONE/APAP 5/325MG 1 EACH TABLET PO PRN (04:55)
[2019-11-23 05:03] LABS: CALCIUM, SERUM 7.9 mg/dL (8.5-10.1); POTASSIUM 4.2 mmol/L (3.5-5.1)
[2019-11-23 05:21] LABS: C-REACTIVE PROTEIN 14.2 mg/dL (0.0-0.9)
--- NOTE | 2019-11-23 06:53 | NUR ---
RN CLOSING NOTE PT SEDATED CURRENTLY ON DIPRIVAN DRIP AT 50 MCG, D5W INFUSING AT 50 ML/HR, GLUCERNA 1.2 INFUSING AT 55 ML/HR. MARK PICC PATENT AND INTACT. PT TOLERATING CURRENT VENT SETTINGS. PT HAS HAD EPISODES OF DESATURATIONS IN THE MID 80'S. PT CURRENTLY ST. PAIN MEDICATION GIVEN Q 3 HRS NEEDED. PIERSON CATH DRAINING YELLOW URINE, WOUND DRESSING TREATMENTS DONE PER PROTOCOL. PT SAFETY MEASURES IN PLACE, BED IN LOWEST POSITION, CALL LIGHT WITHIN REACH. ENDORSED TO AM RN FOR SABINO.
--- NOTE | 2019-11-23 07:00 | NUR ---
MARKETING CONSULTANT - OPENING PATIENT IS SEDATED, ON BEDSIDE MONITOR ST 130'S, ON VENT MECH VENT AC 18 / TV 400 / O2 100/ PEEP 5 RECTAL TUBE PATENT AND INTACT, PIERSON PATENT AND INTACT. BLE/MALU SKIN TEARS WITH NECROTIC TISSUE . OG TUBE WITH FEEDING RUNNING 1.2 @ 55 ML/ HR WITH MINIMAL RESIDUAL. MARK PICC D5W @ 50 ML/HR AND DRIPRIVAN @ 50 MCG/KG/MIN BED LOCKED LOWEST POSITION CALL LIGHT WITH IN REACH ALL SAFETY MEASURE IMPLEMENTED PER HOSPITAL POLICY.
--- NOTE | 2019-11-23 08:45 | NUR ---
ORTHODONTIST VICE PRESIDENT - ODALYSNGE OF STATUS DNIDNI TALKED TO DAUGHTER WANTED TO CAHNGE CODE STATUS TO DNRI TO DNI. INFORMED DAUGTHER ABOUT PATIENT CONDITION AND UPDATES
--- NOTE | 2019-11-23 09:00 | NUR ---
NURSE PARALEGAL - NO SEDATION VACATION NO SEDATION VACATION POSSIBLE COMFORT MEASURES
[2019-11-23] MEDS: INSULIN GLARGINE, 100 UNIT/ML CARTRIDGE SQ SCH (10:05)
[2019-11-23] MEDS: ENOXAPARIN SODIUM 40 MG/0.4 ML DISP.SYRIN SQ SCH (10:06)
[2019-11-23] MEDS: DAKINS QUARTER STRENGTH (0.125%) 480 ML BOTTLE TOP SCH (10:10)
[2019-11-23] MEDS: HYDROGEL DRESSING 90 GM TUBE TP SCH (10:10)
[2019-11-23] MEDS: CLOTRIMAZOLE/BETAMETASONE DIPROPIONATE 15 GM TUBE TP SCH (10:11)
[2019-11-23] MEDS: CADEXOMER IODINE 40 GM TUBE TP SCH (10:11)
--- NOTE | 2019-11-23 10:45 | NUR ---
FRUIT OR NUT FARM WORKER - CHANGE CODE STATUS TO COMFORT MEASURE PER DR. GONZALEZ CHANGE CODE STATUS TO COMFORT MEASURES PER RANDAL ORDERS.
[2019-11-23] MEDS ORDERED: MORPHINE SULFATE PF DRIP 250 MG in IV D5W 240 ML IV PRN (11:00)
--- NOTE | 2019-11-23 12:00 | NUR ---
CALIBRATION CHECKER MORPHINE DRIP MORPHINE DRIP STARTED AT 5 ML/HR - PER DOCTOR ORDER. ALL MEDICATIONS DISCONTINUED
--- NOTE | 2019-11-23 18:40 | NUR ---
ICU/RN PT HAS NO MORE HEART BEATS,ASYSTOLE ON MONITOR,NO CHEST MOVEMENT ,NO PULSES,PUPILS FIXED AND DILATED.PT IS COVID-19 POSITIVE.WAS EXTUBATED 13:OO. COMFORT MEASURES ONLY ON MORPHINE DRIP PER FAMILY REQUEST.FAMILY NOTIFIED -DAUGHTER KHOA APARICIO,PHONE IS [phone].FAMILY HAS NO MORTUARY ARRANGEMENT AT THIS TIME. WILL PROVIDE IT LATER.[facility] NOTIF[facility].
== END 2019-11-23 18:39 | disposition expired | DRG 720 ==
LOC: ER 20:51 → ICU 22:41
PROVIDERS: ADMIT Nurse Practitioner Acute Care; ATTEND Internal Medicine
PROC: 05HY33Z Insertion of Infusion Device into Upper Vein, Percutaneous Approach (ICD-10-PCS; 2019-10-28)
PROC: 5A1955Z Respiratory Ventilation, Greater than 96 Consecutive Hours (ICD-10-PCS; principal; 2019-10-29)
PROC: 0BH17EZ Insertion of Endotracheal Airway into Trachea, Via Natural or Artificial Opening (ICD-10-PCS; principal; 2019-10-29)
PROC: B548ZZA Ultrasonography of Superior Vena Cava, Guidance (ICD-10-PCS; 2019-11-01)
PROC: 02HV33Z Insertion of Infusion Device into Superior Vena Cava, Percutaneous Approach (ICD-10-PCS; 2019-11-01)
PROC: 30233M1 Transfusion of Nonautologous Plasma Cryoprecipitate into Peripheral Vein, Percutaneous Approach (ICD-10-PCS; 2019-11-03)
PROC: 30233N1 Transfusion of Nonautologous Red Blood Cells into Peripheral Vein, Percutaneous Approach (ICD-10-PCS; 2019-11-07)
DX: A41.89 Other specified sepsis (principal); U07.1 COVID-19; I21.A1 Myocardial infarction type 2; J96.01 Acute respiratory failure with hypoxia; D65 Disseminated intravascular coagulation [defibrination syndrome]; E43 Unspecified severe protein-calorie malnutrition; D61.818 Other pancytopenia; N17.0 Acute kidney failure with tubular necrosis; J12.89 Other viral pneumonia; R65.21 Severe sepsis with septic shock; K85.90 Acute pancreatitis without necrosis or infection, unspecified; E11.10 Type 2 diabetes mellitus with ketoacidosis without coma; J90 Pleural effusion, not elsewhere classified; E11.621 Type 2 diabetes mellitus with foot ulcer; L97.519 Non-pressure chronic ulcer of other part of right foot with unspecified severity; E11.622 Type 2 diabetes mellitus with other skin ulcer; L03.115 Cellulitis of right lower limb; E11.52 Type 2 diabetes mellitus with diabetic peripheral angiopathy with gangrene; E27.40 Unspecified adrenocortical insufficiency; E78.1 Pure hyperglyceridemia; E78.5 Hyperlipidemia, unspecified; Z66 Do not resuscitate; Z51.5 Encounter for palliative care; Z86.2 Personal history of diseases of the blood and blood-forming organs and certain disorders involving the immune mechanism; E87.2 Acidosis; E87.1 Hypo-osmolality and hyponatremia; E87.0 Hyperosmolality and hypernatremia; E87.6 Hypokalemia; E86.9 Volume depletion, unspecified; D63.8 Anemia in other chronic diseases classified elsewhere; B37.49 Other urogenital candidiasis; E83.39 Other disorders of phosphorus metabolism; I70.0 Atherosclerosis of aorta; J81.1 Chronic pulmonary edema; L89.156 Pressure-induced deep tissue damage of sacral region; M47.816 Spondylosis without myelopathy or radiculopathy, lumbar region; N26.1 Atrophy of kidney (terminal); T14.8XXA Other injury of unspecified body region, initial encounter; X58.XXXA Exposure to other specified factors, initial encounter; Y92.9 Unspecified place or not applicable; K52.9 Noninfective gastroenteritis and colitis, unspecified; R74.0 Nonspecific elevation of levels of transaminase and lactic acid dehydrogenase [LDH]
CPT/HCPCS: 31720; 36410; 36415; 36569; 36600; 71045-TC; 76700-TC; 80048-TC; 80053-TC; 80061-TC; 80076-TC; 80202-TC; 81000-TC; 82010-TC; 82248-TC; 82272-TC; 82533; 82550-TC; 82728-TC; 82784; 82803-TC; 82947-TC; 82962-TC; 83540-TC; 83605-TC; 83615-TC; 83690-TC; 83735-TC; 83880; 84100-TC; 84155; 84165; 84439-TC; 84443-TC; 84478-TC; 84484-TC; 85025-TC; 85027-TC; 85378-TC; 85385-TC; 85396; 85610-TC; 85730-TC; 86140-TC; 86334; 86480; 86803; 86850-TC; 86921-TC; 87040-TC; 87070-TC; 87081-TC; 87086-TC; 87186-TC; 93307-TC; 93930-TC; 94002-TC; 94003-TC; 94760-TC; 94799-TC; A4216; A6248; A6253; A6403; C1751; C1769; G0378; J0330; J0456; J0637; J0696; J1200; J1642; J1644; J1650; J1720; J1815; J1885; J2185; J2248; J2270; J2274; J2370; J2405; J2704; J3262; J3370; J3480; J3490; J7030; J7042; J7050; J7060; J7070; J7120; P9012; P9016-BL